=== PATIENT | female | born 1950 | race Caucasian/White ===

== ENCOUNTER → 2019-01-30 | Outpatient (CLI) | payer MEDICARE, OTHER ==
[2019-01-30 10:06] LABS: Basophils # (A) 0.1 k/uL (0-0.2); Basophils % (A) 1 %; Eosinophils # (A) 0.2 k/uL (0-0.7); Eosinophils % (A) 2 %; HCT 39.9 % (34.0-46.0); HGB 12.4 gm/dL (11.4-16.0); Lymphocytes # (A) 2.3 k/uL (1.0-4.8); Lymphocytes % (A) 24 %; MCH 28.4 pg (25.0-35.0); MCHC 31.2 g/dL (31.0-37.0); MCV 91.2 fL (80.0-100.0); Monocytes # (A) 0.4 k/uL (0-1.0); Monocytes % (A) 5 %; Neutrophils # (A) 6.4 k/uL (1.3-7.7); Neutrophils % (A) 67 %; Platelet Count 354 k/uL (150-450); RBC 4.37 m/uL (3.80-5.40); RDW 13.1 % (11.5-15.5); WBC 9.5 k/uL (3.8-10.6)
[2019-01-30 16:25] LABS: African American GFR (CKD) 58.9 (60.0-200.0); Anion Gap 12.1 mmol/L (4.00-12.00); BUN/Creat Ratio 28.18 Ratio (12.00-20.00); Carbon Dioxide 24.9 mmol/L (21.6-31.8); Non-African American GFR(CKD) 50.8 (60.0-200.0); Potassium 4.6 mmol/L (3.5-5.5)
== END ==
LOC: LABWHC1 09:18
PROVIDERS: ATTEND Internal Medicine Cardiovascular Disease
DX: G45.9 Transient cerebral ischemic attack, unspecified (principal)
CPT/HCPCS: 36415; 80048; 85025

== ENCOUNTER 2020-03-30 15:27 | Inpatient (IN) | payer MEDICARE, OTHER ==
[2020-03-30 15:46] LABS: Glucose,Whole Blood 99 mg/dL (75-99)
[2020-03-30] MEDS ORDERED: SODIUM CHLORIDE 0.9% 1,000 ML IV STA ×2 (15:46→16:45)
[2020-03-30 16:04] LABS: Basophils # (A) 0.1 k/uL (0-0.2); Basophils % (A) 1 %; Eosinophils # (A) 0.3 k/uL (0-0.7); Eosinophils % (A) 3 %; HCT 33.7 % (34.0-46.0); HGB 11.2 gm/dL (11.4-16.0); Lymphocytes % (A) 24 %; MCH 29.1 pg (25.0-35.0); MCHC 33.2 g/dL (31.0-37.0); MCV 87.6 fL (80.0-100.0); Mean Platelet Volume 7.6; Monocytes # (A) 0.6 k/uL (0-1.0); Monocytes % (A) 5 %; Neutrophils # (A) 8.2 k/uL (1.3-7.7); Neutrophils % (A) 67 %; Platelet Count 275 k/uL (150-450); RBC 3.84 m/uL (3.80-5.40); RDW 13.8 % (11.5-15.5); WBC 12.3 k/uL (3.8-10.6)
--- NOTE | 2020-03-30 16:19 | ED ---
Neuro HPI - General Chief Complaint: Neuro Symptoms/Deficit Stated Complaint: possible stroke Time Seen by Provider: 03/30/20 15:34 Source: patient, RN notes reviewed Mode of arrival: wheelchair Limitations: no limitations - History of Present Illness Is the patient presenting with stroke symptoms?: Yes Initial Comments: This is a 69-year-old female with history of prior stroke with left-sided hemiparesis who sometime this morning started developing some increased weakness with numbness to both hands but also per her brother brought her and she was noted have some left facial asymmetry and increased weakness left side which is new this happened sometime after she woke up this morning she does not recall exactly what time she woke up and after conversing with the doctor's office they were instructed to bring her in here for evaluation. The patient likely and she started having symptoms to 3 days ago after further discussion. She denies a headache fevers chills nausea vomiting sweats she does complain of numbness of both hands. No other complaints or modifying factors. - Related Data Allergies/Adverse Reactions: Allergies Allergy/AdvReac Type Severity Reaction Status Date / Time No Known Allergies Allergy Verified 03/30/20 15:33 Review of Systems ROS Statement: Those systems with pertinent positive or pertinent negative responses have been documented in the HPI. ROS Other: All systems not noted in ROS Statement are negative. General Exam - General Exam Comments Initial Comments: Physical well-developed well-nourished awake alert oriented 3 female she is tearful and anxious Limitations: no limitations General appearance: alert, anxious Head exam: Present: atraumatic, normocephalic Eye exam: Present: normal appearance, PERRL, EOMI. Absent: scleral icterus, conjunctival injection, periorbital swelling ENT exam: Present: other (Some evidence of mild left facial asymmetry with flattening of nasolabial fold) Neck exam: Present: normal inspection, full ROM, other (No stridor JVD or bruits). Absent: tenderness, meningismus, lymphadenopathy Respiratory exam: Present: normal lung sounds bilaterally. Absent: respiratory distress, wheezes, rales, rhonchi, stridor Cardiovascular Exam: Present: regular rate, normal rhythm, normal heart sounds. Absent: systolic murmur, diastolic murmur, rubs, gallop, clicks GI/Abdominal exam: Present: soft, normal bowel sounds. Absent: distended, tend erness, guarding, rebound, rigid Extremities exam: Present: normal inspection, normal capillary refill, other (Left upper lower extremity edna-paresis noted). 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 Absent: rash Stroke MDM - Lab Data Result diagrams: 03/30/20 15:52 03/30/20 15:52 Lab Results 03/30/20 03/30/20 03/30/20 Range/Units 15:44 15:52 15:52 WBC 12.3 H (3.8-10.6) k/uL RBC 3.84 (3.80-5.40) m/uL Hgb 11.2 L (11.4-16.0) gm/dL Hct 33.7 L (34.0-46.0) % MCV 87.6 (80.0-100.0) fL MCH 29.1 (25.0-35.0) pg MCHC 33.2 (31.0-37.0) g/dL RDW 13.8 (11.5-15.5) % Plt Count 275 (150-450) k/uL MPV 7.6 Neutrophils % 67 % Lymphocytes % 24 % Monocytes % 5 % Eosinophils % 3 % Basophils % 1 % Neutrophils # 8.2 H (1.3-7.7) k/uL Lymphocytes # 3.0 (1.0-4.8) k/uL Monocytes # 0.6 (0-1.0) k/uL Eosinophils # 0.3 (0-0.7) k/uL Basophils # 0.1 (0-0.2) k/uL PT 9.8 (9.0-12.0) sec INR 0.9 (<1.2) APTT 21.0 L (22.0-30.0) sec Sodium (137-145) mmol/L Potassium (3.5-5.1) mmol/L Chloride (98-107) mmol/L Carbon Dioxide (22-30) mmol/L Anion Gap mmol/L BUN (7-17) mg/dL Creatinine (0.52-1.04) mg/dL Est GFR (CKD-EPI)AfAm (>60 ml/min/1.73 sqM) Est GFR (CKD-EPI)NonAf (>60 ml/min/1.73 sqM) Glucose (74-99) mg/dL POC Glucose (mg/dL) 99 (75-99) mg/dL POC Glu [employer] Librarian ID Yovana Lyle Calcium (8.4-10.2) mg/dL Total Bilirubin (0.2-1.3) mg/dL AST (14-36) U/L ALT (4-34) U/L Alkaline Phosphatase (38-126) U/L Troponin I (0.000-0.034) ng/mL Total Protein (6.3-8.2) g/dL Albumin (3.5-5.0) g/dL 03/30/20 03/30/20 Range/Units 15:52 15:52 WBC (3.8-10.6) k/uL RBC (3.80-5.40) m/uL Hgb (11.4-16.0) gm/dL Hct (34.0-46.0) % MCV (80.0-100.0) fL MCH (25.0-35.0) pg MCHC (31.0-37.0) g/dL RDW (11.5-15.5) % Plt Count (150-450) k/uL MPV Neutrophils % % Lymphocytes % % Monocytes % % Eosinophils % % Basophils % % Neutrophils # (1.3-7.7) k/uL Lymphocytes # (1.0-4.8) k/uL Monocytes # (0-1.0) k/uL Eosinophils # (0-0.7) k/uL Basophils # (0-0.2) k/uL PT (9.0-12.0) sec INR (<1.2) APTT (22.0-30.0) sec Sodium 137 (137-145) mmol/L Potassium 6.2 H* (3.5-5.1) mmol/L Chloride 109 H (98-107) mmol/L Carbon Dioxide 18 L (22-30) mmol/L Anion Gap 10 mmol/L BUN 52 H (7-17) mg/dL Creatinine 2.17 H (0.52-1.04) mg/dL Est GFR (CKD-EPI)AfAm 26 (>60 ml/min/1.73 sqM) Est GFR (CKD-EPI)NonAf 22 (>60 ml/min/1.73 sqM) Glucose 102 H (74-99) mg/dL POC Glucose (mg/dL) (75-99) mg/dL POC Glu Electronic Resources Librarian ID Calcium 9.4 (8.4-10.2) mg/dL Total Bilirubin 0.4 (0.2-1.3) mg/dL AST 20 (14-36) U/L ALT 14 (4-34) U/L Alkaline Phosphatase 98 (38-126) U/L Troponin I <0.012 (0.000-0.034) ng/mL Total Protein 7.8 (6.3-8.2) g/dL Albumin 4.6 (3.5-5.0) g/dL - NIH Stroke Scale 1a. Level of Consciousness: (0) alert 1b. LOC Questions: (0) answers correctly 1c. LOC Commands: (0) performs tasks correctly 2. Best Gaze: (0) normal 3. Visual: (0) no visual loss 4. Facial Palsy: (0) normal symmetrical movement 5a. Motor Arm Left: (0) no drift 5b. Motor Arm Right: (0) no drift 6a. Motor Leg Left: (0) no drift 6b. Motor Leg Right: (0) no drift 7. Limb Ataxia: (0) absent 8. Sensory: (0) normal 9. Best Language: (0) no aphasia 10. Dysarthria: (0) normal 11. Extinction/Inattention: (0) no abnormality - Medical Decision Making The patient has had no further change. She has no prior history of kidney failu re that she is aware of. I did discuss case with Dr. Montes as well as with Dr. Medellin. Patient's been giving aggressive treatment to lower the potassium. Patient will be admitted with consultation by neurology as well as from nephrology. The symptoms likely started several days ago per history. No acute intervention is indicated at this time. Past Medical History Past Medical History: CVA/TIA Past Surgical History: Coronary Bypass/CABG Additional Past Surgical History / Comment(s): back surgery Smoking Status: Current every day smoker Past Alcohol Use History: None Reported Past Drug Use History: None Reported Course Vital Signs 03/30/20 03/30/20 03/30/20 15:28 16:32 17:00 Temperature 98.3 F Pulse Rate 61 55 L 58 L Respiratory 18 18 18 Rate Blood Pressure 160/61 121/51 136/58 O2 Sat by Pulse 97 96 96 Oximetry - Reevaluation(s) Reevaluation #1: 03/30/20 17:57 Evaluation the patient revealed no change in her status. Patient still unsure when the symptoms started. Critical Care Time Critical Care Time: Yes Total Critical Care Time: 39 Critical Care Time: Critical care time includes initial presentation with history physical labs x- rays review of imaging multiple reevaluation the patient. Review of old palma rting. Discussed with the admitting physician discussion with the consult. Admission orders documentation the above Disposition Clinical Impression: Acute renal failure, Hyperkalemia, CVA (cerebral vascular accident) Disposition: ADMITTED IP TO THIS [facility] Condition: Fair Referrals: Miguelito Russo MD [Primary Care Provider] - 1-2 days
[2020-03-30 16:21] LABS: Albumin 4.6 g/dL (3.5-5.0); Calcium 9.4 mg/dL (8.4-10.2); Total Bilirubin 0.4 mg/dL (0.2-1.3); Total Protein 7.8 g/dL (6.3-8.2)
[2020-03-30 16:27] LABS: INR 0.9 (<1.2); Prothrombin Time 9.8 sec (9.0-12.0)
--- NOTE | 2020-03-30 16:34 | CT ---
EXAMINATION TYPE: CT brain wo con DATE OF EXAM: 03/30/2020 COMPARISON: None HISTORY: Weakness and neuro deficit with history of prior CVA. CT DLP: 1202.4 mGycm Automated exposure control for dose reduction was used. Helical imaging through the brain. FINDINGS: There are cerebral vascular calcifications present. Extensive skin calcifications are present within the scalp. Periventricular white matter shows patchy low attenuation. There is encephalomalacia in th e distribution of the right middle cerebral artery. Some mild ex vacuo phenomenon present of the righ t lateral ventricle. Periventricular white matter shows patchy low attenuation. No hemorrhage or hydr ocephalus. Calvarium is intact. There is cerumen in the external auditory canals. Orbits show symmetr ic appearance. Some soft tissue density is questioned at the level of the middle ears within the atti c on the right. Mild inflammatory change present in the sphenoid sinus on the left. IMPRESSION: EVIDENCE OF CHRONIC SMALL VESSEL ISCHEMIA, CEREBROVASCULAR ACCIDENT IS LIKELY REMOTE. AGE-RELATED ATR OPHY. CERUMEN WITHIN THE EXTERNAL AUDITORY CANALS, DIFFICULT TO EXCLUDE CHOLESTEATOMA ON THE RIGHT. C ONSIDER DEDICATED NONEMERGENT TEMPORAL BONE IMAGING.
[2020-03-30 16:38] LABS: Potassium 6.2 mmol/L (3.5-5.1)
[2020-03-30] MEDS ORDERED: ALBUTEROL NEBULIZED (CONC) 20 MG, SODIUM CHLORIDE 0.9% NEBULIZ 3 ML INHALATION ONE ×4 (16:45→18:30)
--- NOTE | 2020-03-30 16:48 | XR ---
EXAMINATION TYPE: XR chest 2V DATE OF EXAM: 03/30/2020 COMPARISON: NONE HISTORY: Altered mental status TECHNIQUE: 2 views FINDINGS: There is no heart failure nor confluent pneumonic infiltrate. Costophrenic angles are clear . There are sternal wires. Thoracic aorta is atheromatous. IMPRESSION: No active cardiopulmonary disease. Normal heart. Atheromatous aorta.
[2020-03-30] MEDS ORDERED: SODIUM POLYSTYRENE SULFONATE 15 GM/60 ML BOTTLE PO STA (16:56)
[2020-03-30] MEDS ORDERED: HYDROmorphone 1 MG/ML 1 ML SYRINGE IVP STA (16:56)
[2020-03-30] MEDS ORDERED: DEXTROSE 50% SYRINGE 50 ML IVP STA (17:09)
[2020-03-30] MEDS ORDERED: SODIUM BICARB 8.4% 50 ML SYR (1 MEQ/ML) IV STA (17:10)
[2020-03-30] MEDS ORDERED: INSULIN REGULAR 100 UNIT/ML VIAL IV ONE (17:10)
[2020-03-30] MEDS ORDERED: CALCIUM CHLORIDE 100 MG/ML 10 ML SYRINGE IVP STA (17:10)
[2020-03-30] MEDS ORDERED: FLUTICASONE 50MCG/SPRAY NASAL 16GM EA NOSTRIL PRN (18:38)
[2020-03-30] MEDS ORDERED: CYCLOBENZAPRINE 10 MG TAB PO PRN (18:38)
[2020-03-30] MEDS ORDERED: METOCLOPRAMIDE 10 MG TAB PO PRN (18:38)
[2020-03-30] MEDS ORDERED: [UNRECOGNIZED DRUG - OTHER] INHALATION PRN (18:38)
[2020-03-30] MEDS ORDERED: NITROGLYCERIN SL TABS 0.4 MG TAB SUBLINGUAL PRN (18:38)
[2020-03-30] MEDS ORDERED: PROCHLORPERAZINE 10 MG TAB PO PRN (18:38)
[2020-03-30] MEDS: SODIUM CHLORIDE 0.9% 1,000 ML IV SCH ×2 (18:50→22:11)
[2020-03-30 20:20] LABS: Glucose,Whole Blood 82 mg/dL (75-99)
[2020-03-30] MEDS: INSULIN ASPART (NovoLOG) 100 UNIT/ML VIAL SQ SCH (21:35)
[2020-03-30] MEDS: MONTELUKAST 10 MG TAB PO SCH (22:09)
[2020-03-30] MEDS: ALPRAZolam 1 MG TAB PO PRN (22:09)
[2020-03-30] MEDS: PANTOPRAZOLE 40 MG TABLET PO SCH (22:09)
[2020-03-30] MEDS: carvediloL 12.5 MG TAB PO SCH (22:09)
[2020-03-30] MEDS: HYDROcodone/APAP 10-325MG 1 EACH TAB PO PRN (22:10)
[2020-03-30] MEDS: DOCUSATE 100 MG CAP PO SCH (22:10)
[2020-03-30] MEDS: INSULIN DETEMIR (LEVEMIR) 100 UNIT/ML SYR SQ SCH (22:11)
[2020-03-31 06:54] LABS: Glucose,Whole Blood 53 mg/dL (75-99)
[2020-03-31] MEDS: INSULIN ASPART (NovoLOG) 100 UNIT/ML VIAL SQ SCH ×4 (06:56→20:44)
[2020-03-31] MEDS: carvediloL 12.5 MG TAB PO SCH ×2 (06:58→17:06)
[2020-03-31 07:09] LABS: Glucose,Whole Blood 56 mg/dL (75-99)
[2020-03-31 07:27] LABS: Glucose,Whole Blood 57 mg/dL (75-99)
[2020-03-31 07:44] LABS: Glucose,Whole Blood 57 mg/dL (75-99)
[2020-03-31] MEDS ORDERED: DEXTROSE 50% SYRINGE 50 ML IVP ONE (07:52)
[2020-03-31 08:06] LABS: Glucose,Whole Blood 186 mg/dL (75-99)
[2020-03-31 08:23] LABS: Calcium 9.3 mg/dL (8.4-10.2); Potassium 4.8 mmol/L (3.5-5.1)
[2020-03-31] MEDS ORDERED: CHLORTHALIDONE 25 MG TAB PO SCH (09:00)
[2020-03-31] MEDS ORDERED: hydrALAZINE HCL 50 MG TAB PO SCH (09:00)
[2020-03-31] MEDS ORDERED: lisinopriL 20 MG TAB PO SCH (09:00)
[2020-03-31] MEDS ORDERED: ASPIRIN 325 MG TAB PO SCH (09:00)
[2020-03-31] MEDS: EZETIMIBE 10 MG TAB PO SCH (09:29)
[2020-03-31] MEDS: CLOPIDOGREL 75 MG TAB PO SCH (09:30)
[2020-03-31] MEDS: DOCUSATE 100 MG CAP PO SCH ×2 (09:30→20:48)
[2020-03-31] MEDS: PANTOPRAZOLE 40 MG TABLET PO SCH ×2 (09:30→20:48)
--- NOTE | 2020-03-31 09:31 | P.NPCON ---
History of Present Illness - Reason for Consult acute renal failure - History of Present Illness Reason for consultation: Acute kidney injury next History of present illness: A patient is a 69-year-old female seen in consultation for acute kidney injury. Patient's creatinine was 2.17 on admission and is down to 1.43 today. Creatinine in January 2019 was 1.1. Patient presented to the hospital with increased weakness and numbness in her hands. She was also noted to have facial asymmetry by the family members. Patient is not a very reliable historian at this time. She underwent brain CT in the ER which revealed chronic small vessel ischemia. Patient's potassium level was also elevated at 6.2 on admission and was medically treated with IV insulin and D50 as well as sodium bicarb. She also received a dose of Kayexalate. She was on lisinopril at home which has been discontinued. Hemodynamically stable. Has a Goodman catheter. 2 L urine output since admission. She is maintained on normal saline at 130 mL an hour. Vital signs are stable. General: The patient appeared well nourished and normally developed. HEENT: Head exam is unremarkable. Neck is without jugular venous distension. LUNGS: Breath sounds decreased. HEART: Rate and Rhythm are regular. ABDOMEN: Soft, nontender. EXTREMITITES: No edema. Past Medical History Past Medical History: CVA/TIA, Myocardial Infarction ([place]) Additional Past Medical History / Comment(s): CVA 2018 Last Myocardial Infarction Date:: 2014 History of Any Multi-Drug Resistant Organisms: None Reported Past Surgical History: Coronary Bypass/CABG, Heart Catheterization With Stent Additional Past Surgical History / Comment(s): back surgery, 4 vesssel bypass 2003 Past Anesthesia/Blood Transfusion Reactions: No Reported Reaction Date of Last Stent Placement:: 2014 Smoking Status: Current every day smoker Past Alcohol Use History: None Reported Past Drug Use History: None Reported Medications and Allergies Home Medications Medication Instructions Recorded Confirmed Type ALPRAZolam [Xanax] 1 mg PO QID PRN 03/30/20 03/30/20 History Carvedilol [Coreg] 25 mg PO BID 03/30/20 03/30/20 History Chlorthalidone 25 mg PO DAILY 03/30/20 03/30/20 History Clopidogrel Bisulfate [Plavix] 75 mg PO DAILY 03/30/20 03/30/20 History Cyclobenzaprine [Flexeril] 10 mg PO BID PRN 03/30/20 03/30/20 History Docusate [Colace] 100 mg PO BID 03/30/20 03/30/20 History Ezetimibe [Zetia] 10 mg PO DAILY 03/30/20 03/30/20 History Fluticasone Nasal [place] [Flonase 1 spr EA NOSTRIL DAILY PRN 03/30/20 03/30/20 History Nasal [place]] HYDROcodone/APAP 10-325MG [Hustler 1 tab PO QID PRN 03/30/20 03/30/20 History 10-325] Insulin Glargine,Hum.rec.anlog 50 unit SQ BID 03/30/20 03/30/20 History [Lantus Solostar] Isosorbide Mononitrate ER [Imdur] 60 mg PO DAILY 03/30/20 03/30/20 History Mesal/Menth/Camph/[place] Fir 1 puff INHALATION RT-DAILY PRN 03/30/20 03/30/20 History [Eitan Vapointristian] Metoclopramide [Reglan] 10 mg PO ACHS PRN 03/30/20 03/30/20 History Montelukast [Singulair] 10 mg PO HS 03/30/20 03/30/20 History Nitroglycerin Sl Tabs [Nitrostat] 0.4 mg SL Q5M PRN 03/30/20 03/30/20 History Omeprazole 20 mg PO BID 03/30/20 03/30/20 History Prochlorperazine [Compazine] 10 mg PO Q6H PRN 03/30/20 03/30/20 History amLODIPine [Norvasc] 10 mg PO DAILY 03/30/20 03/30/20 History hydrALAZINE HCL [Apresoline] 100 mg PO DAILY 03/30/20 03/30/20 History lisinopriL 40 mg PO DAILY 03/30/20 03/30/20 History Allergies Allergy/AdvReac Type Severity Reaction Status Date / Time No Known Allergies Allergy Verified 03/30/20 18:25 Physical Exam Vitals: Vital Signs Temp Pulse Pulse Resp BP BP Pulse Ox 03/31/20 04:00 51 L 18 101/59 92 L 03/31/20 01:38 62 18 03/31/20 00:00 62 18 158/70 95 03/30/20 20:30 98.1 F 57 L 18 152/68 95 03/30/20 19:00 56 L 139/59 99 03/30/20 18:53 56 L 03/30/20 18:33 54 L 03/30/20 18:00 54 L 03/30/20 17:00 58 L 18 136/58 96 03/30/20 16:32 55 L 18 121/51 96 03/30/20 15:28 98.3 F 61 18 160/61 97 Intake and Output 03/30/20 03/31/20 03/31/20 22:59 06:59 14:59 Intake Total 910 480 Output Total 600 1420 Balance -600 -510 480 Intake: Intake, IV Titration 910 Amount Sodium Chloride 0.9% 1, 910 000 ml @ 130 mls/hr IV . Q7H42M [facility] Rx#:[id number] Oral 480 Output: Urine 600 1420 Uretheral (Goodman) 600 Other: Voiding Method Indwelling Catheter Weight 82.1 kg 85.4 kg Results - Lab Results Most recent lab results Calcium 9.3 mg/dL (8.4-10.2) 03/31/20 07:33 03/30/20 15:52 03/31/20 07:33 Assessment and Plan Plan: Assessment: 1. Acute kidney injury mostly prerenal secondary to hypovolemia improving with IV hydration. Creatinine was 2.17 on admission and is 1.4 today. Creatinine in January 2019 was 1.1. 2. Hyperkalemia secondary to acute kidney injury, metabolic acidosis and lisinopril. Resolved with medical management. 3. Metabolic acidosis secondary to acute kidney injury. Improved. 4. Benign hypertension. Stable. Plan: Decreased rate of normal saline to 75 mL an hour. Hold chlorthalidone as well as lisinopril. Encouraged oral intake. Check urinalysis and renal ultrasound. Avoid nephrotoxins. Hold amlodipine for systolic blood pressure less than 130. Thank you for the consultation. I will continue to follow the patient with you during her hospital stay.
[2020-03-31] MEDS: SODIUM CHLORIDE 0.9% 1,000 ML IV SCH ×2 (09:32→20:49)
[2020-03-31] MEDS: HYDROcodone/APAP 10-325MG 1 EACH TAB PO PRN ×2 (09:35→17:58)
[2020-03-31] MEDS: amLODIPine 10 MG TAB PO SCH (09:37)
[2020-03-31] MEDS: ISOSORBIDE MONONITRATE ER 60 MG TAB.ER.24H PO SCH (09:37)
--- NOTE | 2020-03-31 10:21 | US ---
EXAMINATION TYPE: US kidneys/renal and bladder DATE OF EXAM: 03/31/2020 COMPARISON: NONE CLINICAL HISTORY: josefina. EXAM MEASUREMENTS: Right Kidney: 10.3 x 5.2 x 5.6 cm Left Kidney: 11.2 x 5.6 x 4.8 cm Right Kidney: No hydronephrosis or masses seen Left Kidney: No hydronephrosis or masses seen Bladder: Not distended, patient has miller catheter There is no evidence for hydronephrosis at this point in time. No nephrolithiasis is seen. No [place] s are identified. IMPRESSION: No acute process.
[2020-03-31 12:09] LABS: Glucose,Whole Blood 227 mg/dL (75-99)
--- NOTE | 2020-03-31 12:11 | P.CNNES ---
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 It seems the onset of the symptoms happened 3 days prior to presenting the hospital per ED noted but she notified me it was the worse yesterday. It was documented in the ED note that she had weakness of bilteral hand with numbness but she notified me it was worsening weakness of the left side. She had headache over frontal region that resolved. She feels she is back to baseline. She denies visual diturbance, difficulty getting her words out or any worsening weakness or numbness. She said she had baseline weakness over the left side with left facial droop and upper and lower extremity weakness. She has some mild dysathria at baseline. She takes Plavix 75mg daily and Lipitor 80mg daily as well as Zeitia. She does not take ASA and said she was not told to take Asprin. She does not know exactly her stroke was but had work-up at outside hospital in the past. She had right carotid stenting by her lease purchase truck driver in the past and was told she has left carotid stenosis and she said she need to follow-up with them. She resides with her brother. She uses a cane and walker. Workup in the hospital consisted of: Initial vital signs: As documented as blood pressure of 160/61, heart rate of 61, respiratory of 18, temperature of 98.3 Fahrenheit oral and pulse ox of 97% at room air. CT of the head is reported as evidence of chronic small vessel ischemia, cerebral vascular accident is likely remote. Age-related atrophy. Cerumen within the external auditory canal, difficult to exclude Cholesteatoma, on the right. Consider dedicated nonemergent a temporal bone imaging. In the body of the report it is mentioned that there is encephalomalacia in the distribution of the right MCA. Some mild ex vacuo phenomenon present at the right lateral ventricle. EKG is reported as sinus bradycardia. ST and T-wave abnormality, consider lateral ischemia. Abnormal EKG. Initial potassium is 6.2. Repeated potassium is 4.8. The BUN is 52 and the creatinine is 2.17, repeated is 1.43. Lipid panel: Triglyceride of 210, cholesterol of 165, LDLs 89, HDL 34. Review of Systems Review of system: The 12 point system was reviewed and apparent positive and negative per HPI. Past Medical History Past Medical History: CVA/TIA, Myocardial Infarction (OR) Additional Past Medical History / Comment(s): CVA 2018 Last Myocardial Infarction Date:: 2014 History of Any Multi-Drug Resistant Organisms: None Reported Past Surgical History: Coronary Bypass/CABG, Heart Catheterization With Stent Additional Past Surgical History / Comment(s): back surgery, 4 vesssel bypass 2003 Past Anesthesia/Blood Transfusion Reactions: No Reported Reaction Date of Last Stent Placement:: 2014 Smoking Status: Current every day smoker Past Alcohol Use History: None Reported Past Drug Use History: None Reported Medications and Allergies Home Medications Medication Instructions Recorded Confirmed Type ALPRAZolam [Xanax] 1 mg PO QID PRN 03/30/20 03/30/20 History Carvedilol [Coreg] 25 mg PO BID 03/30/20 03/30/20 History Chlorthalidone 25 mg PO DAILY 03/30/20 03/30/20 History Clopidogrel Bisulfate [Plavix] 75 mg PO DAILY 03/30/20 03/30/20 History Cyclobenzaprine [Flexeril] 10 mg PO BID PRN 03/30/20 03/30/20 History Docusate [Colace] 100 mg PO BID 03/30/20 03/30/20 History Ezetimibe [Zetia] 10 mg PO DAILY 03/30/20 03/30/20 History Fluticasone Nasal [place] [Flonase 1 spr EA NOSTRIL DAILY PRN 03/30/20 03/30/20 History Nasal [place]] HYDROcodone/APAP 10-325MG [[place] 1 tab PO QID PRN 03/30/20 03/30/20 History 10-325] Insulin Glargine,Hum.rec.anlog 50 unit SQ BID 03/30/20 03/30/20 History [Lantus Solostar] Isosorbide Mononitrate ER [Imdur] 60 mg PO DAILY 03/30/20 03/30/20 History Mesal/Menth/Camph/[place] 1 puff INHALATION RT-DAILY PRN 03/30/20 03/30/20 History [Eitan Vapoinhaler] Metoclopramide [Reglan] 10 mg PO ACHS PRN 03/30/20 03/30/20 History Montelukast [Singulair] 10 mg PO HS 03/30/20 03/30/20 History Nitroglycerin Sl Tabs [Nitrostat] 0.4 mg SL Q5M PRN 03/30/20 03/30/20 History Omeprazole 20 mg PO BID 03/30/20 03/30/20 History Prochlorperazine [Compazine] 10 mg PO Q6H PRN 03/30/20 03/30/20 History amLODIPine [Norvasc] 10 mg PO DAILY 03/30/20 03/30/20 History hydrALAZINE HCL [Apresoline] 100 mg PO DAILY 03/30/20 03/30/20 History lisinopriL 40 mg PO DAILY 03/30/20 03/30/20 History Allergies Allergy/AdvReac Type Severity Reaction Status Date / Time No Known Allergies Allergy Verified 03/30/20 18:25 Physical Examination - Vital Signs Vital Signs: Vital Signs Temp Pulse Pulse Resp BP BP Pulse Ox 03/31/20 08:00 97.5 F L 54 L 18 157/69 97 03/31/20 04:00 51 L 18 101/59 92 L 03/31/20 01:38 62 18 03/31/20 00:00 62 18 158/70 95 03/30/20 20:30 98.1 F 57 L 18 152/68 95 03/30/20 19:00 56 L 139/59 99 03/30/20 18:53 56 L 03/30/20 18:33 54 L 03/30/20 18:00 54 L 03/30/20 17:00 58 L 18 136/58 96 03/30/20 16:32 55 L 18 121/51 96 03/30/20 15:28 98.3 F 61 18 160/61 97 Intake and Output 03/30/20 03/31/20 03/31/20 22:59 06:59 14:59 Intake Total 910 480 Output Total 600 1420 Balance -600 -510 480 Intake: Intake, IV Titration 910 Amount Sodium Chloride 0.9% 1, 910 000 ml @ 130 mls/hr IV . [id number] [facility] Rx#:[id number] Oral 480 Output: Urine 600 1420 Uretheral (Goodman) 600 Other: Voiding Method Indwelling Catheter Weight 82.1 kg 85.4 kg GENERAL: The patient is lying in bed and is not in acute distress. CHEST: The heart rate is regular rate rhythm. No murmurs to auscultation. LUNG: Clear to auscultation bilaterally no wheezing noted throughout. Not labored breathing. ABDOMEN/GI: Bowel sounds present in all 4 quadrants. No tenderness to palpation throughout. NEUROLOGICAL: Higher mental function: The patient is awake, alert, oriented to self, place and time. Patient is following commands. No aphasia and no neglect. Cranial nerves: The pupils are round, equal and reactive to light and accommodation. Visual jj are full to confrontation throughout. Extraocular movement is intact no nystagmus is noted. Facial sensation is normal to touch throughout. The facial strength is left lower facial droop (old). Hearing is mild decreased to hand rub bilaterally. Tongue is midline and moved si de-to-side without any difficulty. Has mild dysarthria (old). Shoulder shrug is normal bilaterally. 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 Left proximal is 4+ otherwise 5/5. Normal tone and bulk. Cerebellum: Normal finger to nose bilaterally. Sensation: Sensation is normal to touch throughout. Reflexes (right/left): Left brachioradialis and patellar are 3+ otherwise 2+ throughout. Plantars is upgoing over the left and downgoing over the right. Results Correlation study: PT of 9.8, INR is 0.9 and the PTT is 21.0 - Laboratory Findings CBC and BMP: 03/30/20 15:52 03/31/20 07:33 Abnormal Lab Findings: Abnormal Labs 03/30/20 03/30/20 03/30/20 15:52 15:52 15:52 WBC 12.3 H Hgb 11.2 L Hct 33.7 L Neutrophils # 8.2 H APTT 21.0 L Potassium 6.2 H* Chloride 109 H Carbon Dioxide 18 L BUN 52 H Creatinine 2.17 H Glucose 102 H POC Glucose (mg/dL) Triglycerides HDL Cholesterol 03/31/20 03/31/20 03/31/20 06:53 07:08 07:26 WBC Hgb Hct Neutrophils # APTT Potassium Chloride Carbon Dioxide BUN Creatinine Glucose POC Glucose (mg/dL) 53 L 56 L 57 L Triglycerides HDL Cholesterol 03/31/20 03/31/20 03/31/20 07:33 07:43 08:04 WBC Hgb Hct Neutrophils # APTT Potassium Chloride 111 H Carbon Dioxide BUN 41 H Creatinine 1.43 H Glucose 58 L POC Glucose (mg/dL) 57 L 186 H Triglycerides 210 H HDL Cholesterol 34 L Assessment and Plan Assessment: This is a 69-year-old woman with history of prior stroke with residual left- sided weakness that presented emergency department on 03/30/2020 for worsening weakness of the left side for the past 3 days as well numbness and weakness of bilateral hand. Worsening weakness over the left side as well as weakness and numbness of bilateral hands seems likely due to Transient Ischemic Attack (she stated she is back to baseline) History of right MCA stroke and is seems more anterior with residual weakness over the left side History of right ICA stenosis s/p stenosis. History of left carotid stenosis per patient Acute kidney injury--improving Hyperkalemia---resolved Dyslipidemia Plan: CT of the head is reported as evidence of chronic small vessel ischemia, cerebral vascular accident is likely remote. Age-related atrophy. Cerumen within the external auditory canal, difficult to exclude Cholesteatoma, on the right. Consider dedicated nonemergent a temporal bone imaging. In the body of the report it is mentioned that there is encephalomalacia in the distribution of the right MCA. Some mild ex vacuo phenomenon present at the right lateral ventricle. Lipid panel: Triglyceride of 210, cholesterol of 165, LDLs 89, HDL 34. LDL goal is <70 in stroke. Patient was restarted on the Plavix 75 mg daily home medication and was started on aspirin 325 daily by primary team. I lowered the aspirin from 325-81 and acting the patient will benefit from dual antiplatelet because the carotid stenosis. Start the patient on Lipitor 80 mg daily (home dose). At home she is on Zetia 10 mg daily and was continued by the primary team. I ordered TSH level. Continue cardiac monitoring. Continue every 4 neuro checks. Order echo cardiogram and carotid duplex I ordered MRI Brain to rule out any acute ischemic stroke Physical therapy, occupational therapy and speech therapy are consulted. Regarding the patient carotid stenosis or and history of left carotid stenosis according to her I notified her that would like to consult the vascular surgery but she took notified me that to hold off for now and that she wants to follow- up with her lease purchase truck driver as an outpatient. We'll get a carotid duplex and then all have another discussion with the patient whether she changes her mind or not. Please avoid any hypotensive episodes. Defer the rest of the medical metastatic the primary team. The plan was discussed with the patient's nurse. Thank you for the consultation. Brenton Lai M.D. Neuro-hospitalist Time with Patient: Greater than 30
[2020-03-31] MEDS ORDERED: ATORVASTATIN 80 MG TAB PO SCH (12:15)
[2020-03-31] MEDS: INSULIN DETEMIR (LEVEMIR) 100 UNIT/ML SYR SQ SCH (12:17)
--- NOTE | 2020-03-31 13:54 | US ---
EXAMINATION TYPE: US carotid duplex BILAT DATE OF EXAM: 03/31/2020 COMPARISON: NONE CLINICAL HISTORY: stroke. EXAM MEASUREMENTS: RIGHT: Peak Systolic Velocity (PSV) cm/sec ----- Right CCA: 64.0 ----- Right ICA: 137.4 ----- Right ECA: 230.4 ICA/CCA ratio: 2.1 RIGHT: End Diastole cm/sec ----- Right CCA: 15.0 ----- Right ICA: 24.0 ----- Right ECA: 0.0 LEFT: Peak Systolic Velocity (PSV) cm/sec ----- Left CCA: 163.5 ----- Left ICA: 157.3 ----- Left ECA: 190.8 ICA/CCA ratio: 1.0 LEFT: End Diastole cm/sec ----- Left CCA: 17.7 ----- Left ICA: 19.7 ----- Left ECA: 17.1 VERTEBRALS (direction of flow): Right Vertebral: Antegrade Left Vertebral: Antegrade Rhythm: Normal Patient states she had surgery on the right carotid. Technically difficult study due to patients SOB and technologist ability to reach patients neck. Severe plaque with no significant velocity increases. IMPRESSION: 1. Extensive atherosclerotic plaque. Findings suggest a 50-69% stenosis involving the proximal right ICA. Criteria for Assigning % of Stenosis / Diameter reduction (Estimation based on the indirect measurements of the internal carotid artery velocities (ICA PSV). 1. Normal (no stenosis)=ICA PSV < 125 cm/s: ratio < 2.0: ICA EDV<40 cm/s. 2. Less than 50% stenosis=ICA PSV < 125 cm/s: ratio < 2.0: ICA EDV<40 cm/s. 3. 50 to 69% stenosis=ICA PSV of 125 to 230 cm/s: ration 2.0 ? 4.0: ICA EDV 40-100 cm/s. 4. Greater than 70% stenosis to near occlusion= ICA PSV > 230 cm/s: ratio > 4.0: ICA EDV > 100 cm/s. 5. Near occlusion= ICA PSV velocities may be low or undetectable: variable ratio and ICA EDV. 6. Total occlusion=unable to detect flow.
[2020-03-31 14:22] VITALS: RESP 16
[2020-03-31 16:58] LABS: Glucose,Whole Blood 76 mg/dL (75-99)
--- NOTE | 2020-03-31 17:25 | MR ---
EXAMINATION TYPE: MR brain wo con DATE OF EXAM: 03/31/2020 COMPARISON: CT brain from yesterday. HISTORY: stroke: worsening left sided weakness TECHNIQUE: Multiplanar, multisequence imaging of the brain and brainstem is performed without IV cont rast. FINDINGS: Diffusion weighted images demonstrate no evidence of a recent infarct or other diffusion abnormality. There is no worrisome no extra-axial fluid collection. Mild ventricular and sulcal prominence. Foci o f T2 hyperintensity scattered throughout the white matter bilaterally greatest the periventricular le rehana evidence of old infarct in the right frontoparietal region middle cerebral artery distribution re demonstrated Midline structures redemonstrate normal morphology. The craniocervical junction appears within mabel l limits. Normal vascular flow voids are present. The visualized sinuses are clear and the globes are intact. IMPRESSION: Mild diffuse cerebral atrophy with moderate chronic small vessel ischemic change and sign ificant old right-sided middle cerebral artery distribution infarct are all identified. No MRI eviden ce for a recent infarct.
[2020-03-31] MEDS: ALPRAZolam 1 MG TAB PO PRN (17:58)
[2020-03-31 18:04] LABS: Appearance,Urine Clear (Clear); Bilirubin,Urine Negative (Negative); Blood,Urine Trace (Negative); Color,Urine Light Yellow; Glucose,Urine (UA) Trace (Negative); Ketones,Urine Negative (Negative); Leukocyte Esterase,Urine Moderate (Negative); Mucus,Urine Rare /hpf; Nitrite,Urine Negative (Negative); Protein,Urine Trace (Negative); RBC,Urine 10 /hpf (0-5); Specific Gravity,Urine 1.014 (1.001-1.035); Urobilinogen,Urine <2.0 mg/dL (<2.0); WBC,Urine 10 /hpf (0-5)
--- NOTE | 2020-03-31 18:51 | HP ---
HISTORY AND PHYSICAL CHIEF COMPLAINT: Possible CVA. HISTORY OF PRESENT ILLNESS: This is another admission for this unhealthy 69-year-old white female who has had a longstanding history of atherosclerotic cardiovascular disease and has had a prior right CVA which left her with mild left hemiparesis. She has been fairly compliant with keeping appointments and taking her medications; however, she continues to smoke. She lives with a brother who called, stating that she thought that she had had another right-sided CVA because of the left side of her face was drooping and she was complaining of increased weakness in the left arm and leg. This had been going on for several days, but she did not want to go to the emergency room because of fear of the coronavirus. REVIEW OF SYSTEMS: She has had no change in vision or hearing and she has had no headaches, chest pain, cough, hemoptysis, abdominal pain, vomiting, diarrhea, incontinence of stool or urine, fever or chills, etc. 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 MEDICATIONS: Her medications include: 1. Singulair 10 mg once a day. 2. Vicodin 10 q.6 p.r.n. 3. Xanax 1 mg t.i.d. p.r.n. 4. Reglan 10 mg q.i.d. 5. NovoLog sliding scale. 6. Hydralazine 100 mg once a day. 7. Amlodipine 10 mg once a day. 8. Lisinopril 40 mg once a day. 9. Zetia 10 mg once a day. 10.Prilosec 20 mg once a day. 11.Lipitor 80 mg at bedtime. 12.Lantus 55 units twice a day. 13.Chlorthalidone 25 once a day. 14.Isosorbide mononitrate 60 mg once a day. 15.Carvedilol 25 twice a day. 16.Aspirin. 17.Pepcid. 18.Gabapentin 300 mg 2 capsules twice a day. 19.Clopidogrel 75 mg once a day. PHYSICAL EXAMINATION: Blood pressure 115/71 with a pulse of 60, respirations of 20, and she is afebrile. In general she appeared to be awake and alert but weak. Skin was dry and hydration was adequate. Head, ears, eyes, nose, mouth and throat were unremarkable. There was a slight left-sided facial weakness, but it could not be determined if this was any worse than her normal countenance. Neck veins were are not distended. Carotid bruits were not heard. Chest was clear to auscultation, but breath sounds were poor. Cardiac exam demonstrated sinus rhythm with no murmurs or extra sounds. Abdomen was soft, nontender. Extremities were normal. Neurologically she had very minimal weakness in the left arm and the left leg. There was not a significant evident facial droop. She is admitted to the hospital with diagnoses: 1. Possible new or extended right cerebral infarction. 2. Old right cerebral stroke. 3. Atherosclerotic cardiovascular disease. 4. Coronary artery disease. 5. Chronic obstructive pulmonary disease. 6. Type 2 diabetes. PLAN: 1. Bedrest. 2. IV fluids. 3. Frequent monitoring of her neurologic status and vital signs. 4. CT of the brain. 5. Carotid duplex imaging. 6. PT and OT. 7. Neurology consult. MMODL / IJN: [id number] /
--- NOTE | 2020-03-31 19:00 | PN ---
PROGRESS NOTE DATE OF SERVICE: 03/31/2020 CHIEF COMPLAINT: Possible right-sided CVA. HISTORY OF PRESENT ILLNESS: This lady is doing fairly well. She still feels that she has weakness in the right side of the face and left arm. PHYSICAL EXAMINATION: Her chest is clear. The cardiac exam is normal. The abdomen is soft and nontender. IMPRESSION: Right-sided cerebrovascular accident. PLAN: 1. Progress activity. 2. PT and OT. 3. Await carotid ultrasound. MMODL / IJN: [id number] /
[2020-03-31 20:42] LABS: Glucose,Whole Blood 114 mg/dL (75-99)
[2020-03-31] MEDS: MONTELUKAST 10 MG TAB PO SCH (20:48)
[2020-03-31] MEDS ORDERED: ATORVASTATIN 40 MG TAB PO SCH (21:00)
[2020-04-01 06:18] LABS: Glucose,Whole Blood 97 mg/dL (75-99)
[2020-04-01] MEDS: INSULIN ASPART (NovoLOG) 100 UNIT/ML VIAL SQ SCH ×3 (06:19→16:49)
[2020-04-01] MEDS: carvediloL 12.5 MG TAB PO SCH ×2 (06:22→16:51)
[2020-04-01] MEDS: HYDROcodone/APAP 10-325MG 1 EACH TAB PO PRN (06:25)
[2020-04-01 07:12] LABS: Glucose,Whole Blood 96 mg/dL (75-99)
--- NOTE | 2020-04-01 08:00 | ECHOF ---
Referral Reason:stroke MEASUREMENTS -------- HEIGHT: 157.5 cm WEIGHT: 85.3 kg BP: RVIDd: 2.3 cm (< 3.3) IVSd: 1.4 cm (0.6 - 1.1) LVIDd: 5.1 cm (3.9 - 5.3) LVPWd: 1.2 cm (0.6 - 1.1) IVSs: 2.1 cm LVIDs: 2.3 cm LVPWs: 2.0 cm LAESV Index (A-L): 31.72 ml/m Ao Diam: 3.1 cm (2.0 - 3.7) AV Cusp: 1.9 cm (1.5 - 2.6) LA Diam: 4.4 cm (2.7 - 3.8) MV EXCURSION: 16.659 mm (> 18.000) MV EF SLOPE: 92 mm/s (70 - 150) EPSS: 0.7 cm MV E Bryce: 1.18 m/s MV DecT: 283 ms MV A Bryce: 0.95 m/s MV E/A Ratio: 1.24 RAP: 15.00 mmHg RVSP: 25.06 mmHg FINDINGS -------- Sinus rhythm. This was a technically adequate study. The left ventricular size is normal. There is mild concentric left ventricular hypertrophy. Overa ll left ventricular systolic function is normal with, an EF between 55 - 60 %. Normal LAP Grade 1 Diastolic Dysfunction. The right ventricle is normal in size. LA is midly dilated 29-33ml/m2. The right atrial size is normal. The aortic valve is trileaflet, and appears structurally normal. No aortic stenosis or regurgitation. Mild mitral annular calcification present. There is trace mitral regurgitation. The tricuspid valve appears structurally normal. Mild tricuspid regurgitation present. Right vent ricular systolic pressure is normal at < 35 mmHg. Trace/mild (physiologic) pulmonic regurgitation. The aortic root size is normal. The inferior vena cava is mildly dilated. There is no pericardial effusion. CONCLUSIONS -------- 1. There is mild concentric left ventricular hypertrophy. 2. Overall left ventricular systolic function is normal with, an EF between 55 - 60 %. 3. Normal LAP Grade 1 Diastolic Dysfunction. 4. LA is midly dilated 29-33ml/m2. 5. The aortic valve is trileaflet, and appears structurally normal. No aortic stenosis or regurgitati on. 6. There is trace mitral regurgitation. 7. Mild tricuspid regurgitation present. 8. Trace/mild (physiologic) pulmonic regurgitation. 9. The inferior vena cava is mildly dilated. 10. There is no pericardial effusion. SLEEVE SETTER: Avis Marquis RDCS
[2020-04-01 08:20] LABS: Calcium 9.3 mg/dL (8.4-10.2); Magnesium 1.5 mg/dL (1.6-2.3); Potassium 5.1 mmol/L (3.5-5.1)
[2020-04-01] MEDS: DOCUSATE 100 MG CAP PO SCH (08:25)
[2020-04-01] MEDS: EZETIMIBE 10 MG TAB PO SCH (08:25)
[2020-04-01] MEDS: PANTOPRAZOLE 40 MG TABLET PO SCH (08:25)
[2020-04-01] MEDS: ISOSORBIDE MONONITRATE ER 60 MG TAB.ER.24H PO SCH (08:26)
[2020-04-01] MEDS: CLOPIDOGREL 75 MG TAB PO SCH (08:26)
[2020-04-01] MEDS: amLODIPine 10 MG TAB PO SCH (08:26)
[2020-04-01] MEDS: ALPRAZolam 1 MG TAB PO PRN (08:30)
[2020-04-01 08:33] VITALS: TEMP 98.6
[2020-04-01] MEDS ORDERED: ASPIRIN 81 MG PO SCH (09:00)
--- NOTE | 2020-04-01 11:28 | P.PN ---
Subjective Patient is seen in follow-up for acute kidney injury. Renal function continues to improve. Blood pressure stable. Good urine output. Has a Goodman catheter. Wants to go home. Vital signs are stable. General: The patient appeared well nourished and normally developed. HEENT: Head exam is unremarkable. Neck is without jugular venous distension. LUNGS: Breath sounds decreased. HEART: Rate and Rhythm are regular. ABDOMEN: soft, nontender. EXTREMITITES: No edema. Objective - Vital Signs Vital signs: Vital Signs Temp 98.6 F 04/01/20 08:00 Pulse 53 L 04/01/20 08:00 Resp 16 04/01/20 08:00 BP 128/60 04/01/20 08:00 Pulse Ox 96 04/01/20 08:00 Intake & Output 03/31/20 04/01/20 04/01/20 18:59 06:59 18:59 Intake Total 1318 200 Output Total 1860 Balance 1318 -1860 200 Weight 85.6 kg Intake: Intake, IV Titration 600 Amount Sodium Chloride 0.9% 1, 600 000 ml @ 75 mls/hr IV . [id number] [facility] Rx#:[id number] Oral 718 200 Output: Urine 1860 Other: Voiding Method Indwelling Catheter Indwelling Catheter # Voids 600 # Bowel Movements 1 - Labs CBC & Chem 7: 03/30/20 15:52 04/01/20 07:42 Labs: Abnormal Lab Results - Last 24 Hours (Table) 03/31/20 03/31/20 03/31/20 Range/Units 12:08 17:54 20:40 BUN (7-17) mg/dL Creatinine (0.52-1.04) mg/dL Glucose (74-99) mg/dL POC Glucose (mg/dL) 227 H 114 H (75-99) mg/dL Magnesium (1.6-2.3) mg/dL Urine Protein Trace H (Negative) Urine Glucose (UA) Trace H (Negative) Urine Blood Trace H (Negative) Ur Leukocyte Esterase Moderate H (Negative) Urine RBC 10 H (0-5) /hpf Urine WBC 10 H (0-5) /hpf Urine Mucus Rare H (None) /hpf 04/01/20 Range/Units 07:42 BUN 27 H (7-17) mg/dL Creatinine 1.06 H (0.52-1.04) mg/dL Glucose 108 H (74-99) mg/dL POC Glucose (mg/dL) (75-99) mg/dL Magnesium 1.5 L (1.6-2.3) mg/dL Urine Protein (Negative) Urine Glucose (UA) (Negative) Urine Blood (Negative) Ur Leukocyte Esterase (Negative) Urine RBC (0-5) /hpf Urine WBC (0-5) /hpf Urine Mucus (None) /hpf Assessment and Plan Plan: Assessment: 1. Acute kidney injury mostly prerenal secondary to hypovolemia improving with IV hydration. Creatinine was 2.17 on admission and is 1.06 today. Creatinine in January 2019 was 1.1. Trace proteinuria on UA. No hydronephrosis noted on kidney ultrasound. 2. Hyperkalemia secondary to acute kidney injury, metabolic acidosis and lisinopril. Resolved with medical management. 3. Metabolic acidosis secondary to acute kidney injury. Improved. 4. Benign hypertension. Stable. 5. Chronic diastolic CHF. 6. Hypomagnesemia from poor intake. Plan: Decreased normal saline to 50 mL an hour. Hold chlorthalidone as well as lisinopril. Encouraged oral intake. Avoid nephrotoxins. Hold amlodipine for systolic blood pressure less than 130. Cleared for CTA of the carotids as renal function is improved significantly. Maintain IV hydration and monitor renal function. Replace magnesium. 2 g IV today.
[2020-04-01 12:03] LABS: Glucose,Whole Blood 129 mg/dL (75-99)
--- NOTE | 2020-04-01 12:17 | P.PN ---
Subjective Progress Note Date: 04/01/20 The patient was seen at bedside and she stated that she feels a back to her baseline. She has not had any further episodes of weakness, numbness. Denies of any visual disturbance. Objective - Vital Signs Vital signs: Vital Signs Temp 98.6 F 04/01/20 08:00 Pulse 53 L 04/01/20 08:00 Resp 16 04/01/20 08:00 BP 128/60 04/01/20 08:00 Pulse Ox 96 04/01/20 08:00 Intake & Output 03/31/20 04/01/20 04/01/20 18:59 06:59 18:59 Intake Total 1318 200 Output Total 1860 Balance 1318 -1860 200 Weight 85.6 kg Intake: Intake, IV Titration 600 Amount Sodium Chloride 0.9% 1, 600 000 ml @ 75 mls/hr IV . [id number] Rx#:[id number] Oral 718 200 Output: Urine 1860 Other: Voiding Method Indwelling Catheter Indwelling Catheter Indwelling Catheter # Voids 600 # Bowel Movements 1 - Exam GENERAL: The patient is lying in bed and is not in acute distress. NEUROLOGICAL: Higher mental function: The patient is awake, alert, oriented to self, place and time. Patient is following commands. No aphasia and no neglect. Cranial nerves: The pupils are round, equal and reactive to light and accommodat ion. Visual jj are full to confrontation throughout. Extraocular movement is intact no nystagmus is noted. Facial sensation is normal to touch throughout. The facial strength is left lower facial droop (old). Hearing is mild decreased to hand rub bilaterally. Tongue is midline and moved [id number] without any difficulty. Has mild dysarthria (old). Shoulder shrug is normal bilaterally. 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 Left proximal is 4+ otherwise 5/5. Normal tone and bulk. Cerebellum: Normal finger to nose bilaterally. Sensation: Sensation is normal to touch throughout. Reflexes (right/left): Left brachioradialis and patellar are 3+ otherwise 2+ throughout. Plantars is upgoing over the left and downgoing over the right. - Labs CBC & Chem 7: 03/30/20 15:52 04/01/20 07:42 Labs: Abnormal Lab Results - Last 24 Hours (Table) 03/31/20 03/31/20 03/31/20 Range/Units 12:08 17:54 20:40 BUN (7-17) mg/dL Creatinine (0.52-1.04) mg/dL Glucose (74-99) mg/dL POC Glucose (mg/dL) 227 H 114 H (75-99) mg/dL Magnesium (1.6-2.3) mg/dL Urine Protein Trace H (Negative) Urine Glucose (UA) Trace H (Negative) Urine Blood Trace H (Negative) Ur Leukocyte Esterase Moderate H (Negative) Urine RBC 10 H (0-5) /hpf Urine WBC 10 H (0-5) /hpf Urine Mucus Rare H (None) /hpf 04/01/20 04/01/20 Range/Units 07:42 12:02 BUN 27 H (7-17) mg/dL Creatinine 1.06 H (0.52-1.04) mg/dL Glucose 108 H (74-99) mg/dL POC Glucose (mg/dL) 129 H (75-99) mg/dL Magnesium 1.5 L (1.6-2.3) mg/dL Urine Protein (Negative) Urine Glucose (UA) (Negative) Urine Blood (Negative) Ur Leukocyte Esterase (Negative) Urine RBC (0-5) /hpf Urine WBC (0-5) /hpf Urine Mucus (None) /hpf Assessment and Plan Assessment: This is a 69-year-old woman with history of prior stroke with residual left- sided weakness that presented emergency department on 03/30/2020 for worsening weakness of the left side for the past 3 days as well numbness and weakness of bilateral hand. Transient Ischemic Attack (Transient Worsening weakness over the left side as well as weakness and numbness of bilateral hands) History of right MCA stroke and is seems more anterior with residual weakness over the left side History of right ICA stenosis s/p stenosis. History of left carotid stenosis per patient Acute kidney injury--improving Hyperkalemia---resolved Dyslipidemia Plan: CT of the head is reported as evidence of chronic small vessel ischemia, cerebra l vascular accident is likely remote. Age-related atrophy. Cerumen within the external auditory canal, difficult to exclude Cholesteatoma, on the right. Consider dedicated nonemergent a temporal bone imaging. In the body of the report it is mentioned that there is encephalomalacia in the distribution of the right MCA. Some mild ex vacuo phenomenon present at the right lateral ventricle. Lipid panel: Triglyceride of 210, cholesterol of 165, LDLs 89, HDL 34. LDL goal is <70 in stroke. Continue dual antiplates (ASA 81mg and Plavix 75mg daily) because the carotid stenosis. Continue Lipitor 80 mg daily (home dose). At home she is on Zetia 10 mg daily and was continued by the primary team. TSH level: 1.1 (normal) Continue cardiac monitoring. Continue every 4 neuro checks. echo cardiogram: It is reported overall left ventricular systolic function is normal with ejection fraction 55-60%. Left atrium is mildly dilated. carotid duplex: Shows extensive atherosclerotic plaque. Finding suggest 50-69% stenosis involving the proximal right ICA. MRI Brain: It is reported as mild diffuse cerebral atrophy with moderate chronic small vessel ischemic change and significant old right sided middle cerebral artery distribution infarct are all identified. No MRI evidence for recent the infarct. I ordered CTA of the head and neck to better visualize the carotid stenosis but then patient refused to get and wants it as outpatient. She would like her box icer to assess degree of her carotid stenosis. Physical therapy, occupational therapy and speech therapy are consulted. Regarding the patient carotid stenosis or and history of left carotid stenosis according to her I notified her that would like to consult the vascular surgery but she took notified me that to hold off for now and that she wants to follow- up with her box icer as an outpatient. Please avoid any hypotensive episodes. Defer the rest of the medical metastatic the primary team. There is no further work-up needed from neurology perspective. Patient needs to follow-up with a neurologist within week as well as she needs to follow-up with her box icer regarding the carotid stenosis within a week. The plan was discussed with the patient's nurse. Brenton Lai M.D. Neuro-hospitalist Time with Patient: Less than 30
[2020-04-01] MEDS: MAGNESIUM SULFATE-D5W PMX 1 GM in DEXTROSE/WATER 1 100ML.BAG IVPB SCH ×2 (13:00→14:30)
[2020-04-01 16:48] LABS: Glucose,Whole Blood 138 mg/dL (75-99)
[2020-04-01] MEDS: SODIUM CHLORIDE 0.9% 1,000 ML IV SCH (16:48)
[2020-04-01 17:21] VITALS: BP 182/76; PULSE 72
--- NOTE | 2020-04-01 18:37 | DS ---
DISCHARGE SUMMARY DATE OF SERVICE: 04/01/2020 CHIEF COMPLAINT: Possible right-sided CVA with left hemiparesis. HISTORY OF PRESENT ILLNESS AND PHYSICAL EXAMINATION: Details of this lady's history and physical can be found in the initial workup. LABORATORY STUDIES: While she was in the hospital she had laboratory studies, details of which can be found in the laboratory section of her chart. COURSE IN THE HOSPITAL: After admission she was placed at bedrest, started on intravenous fluids and underwent a neurologic evaluation. There was no new evidence of any vascular disease or abnormality on any of her studies that would suggest that there had been an interval manager exchange her previous neurologic deficits from her old stroke. She was stable and it was felt that she could be discharged on 04/01/2020. She will go home on her usual activity, diet, medication, and an effort will be made to get her off of some of the medicines that may be oversedating her, such as Flexeril and Vicodin. She will be seen in the office in several days. FINAL DIAGNOSES: 1. Right-sided transient ischemic attack with minimal left hemiparesis. 2. Old right-sided cerebrovascular accident with hemiparesis. 3. Chronic obstructive pulmonary disease. 4. Hypertension. OPERATIONS: None. CONSULTATION: Neurology. She is improved. MMODL / IJN: [id number] /
== END 2020-04-01 17:37 | disposition home health service (06) | DRG 69 ==
LOC: EC 15:27 → 3SCARD 18:10
PROVIDERS: ADMIT Family Medicine; ATTEND Family Medicine
DX: G45.9 Transient cerebral ischemic attack, unspecified (principal); N17.9 Acute kidney failure, unspecified; I50.32 Chronic diastolic (congestive) heart failure; I69.354 Hemiplegia and hemiparesis following cerebral infarction affecting left non-dominant side; E87.2 Acidosis; G93.89 Other specified disorders of brain; I11.0 Hypertensive heart disease with heart failure; J44.9 Chronic obstructive pulmonary disease, unspecified; E11.9 Type 2 diabetes mellitus without complications; Z79.4 Long term (current) use of insulin; R29.810 Facial weakness; E78.5 Hyperlipidemia, unspecified; E86.1 Hypovolemia; E87.5 Hyperkalemia; E83.42 Hypomagnesemia; I65.22 Occlusion and stenosis of left carotid artery; R00.1 Bradycardia, unspecified; I25.10 Atherosclerotic heart disease of native coronary artery without angina pectoris; I25.2 Old myocardial infarction; F17.200 Nicotine dependence, unspecified, uncomplicated; Z71.6 Tobacco abuse counseling; Z79.02 Long term (current) use of antithrombotics/antiplatelets; Z79.899 Other long term (current) drug therapy; Z95.1 Presence of aortocoronary bypass graft; Z95.5 Presence of coronary angioplasty implant and graft; Z86.79 Personal history of other diseases of the circulatory system; Z98.890 Other specified postprocedural states
CPT/HCPCS: 36415; 51702; 70450; 70551; 71046; 76770; 80048; 80053; 80061; 81001; 83735; 84132; 84443; 84484; 85025; 85610; 85730; 93005; 93306; 93880; 94640; 96361; 96374; 96375; 99291

== ENCOUNTER 2020-09-11 21:10 | Inpatient (IN) | payer MEDICARE, OTHER ==
--- NOTE | 2020-09-11 22:04 | ED ---
Neuro HPI - General Chief Complaint: Neuro Symptoms/Deficit Stated Complaint: Weakness Time Seen by Provider: 09/11/20 21:13 Source: EMS Mode of arrival: EMS Limitations: no limitations - History of Present Illness Is the patient presenting with stroke symptoms?: Yes Last Known Well Date: 09/11/20 Last Known Well Time: 10:30 -: hour(s) Initial Comments: This patient is a 69-year-old woman who presents with what she is concerned represents another stroke. The patient had told nursing she was feeling weak on her left side since 10:30 in the morning. The patient's brother noted that she was having difficulty standing up. She was trying to get up and her left leg was not supporting her. This was at approximately the 5 PM. At that point they went to [facility] by ambulance, where the patient had head CT and lab testing and was then transferred here to have neurology consultation. When I interview the patient, she is not having headache. She denies dyspnea. She is complaining of some chronic back pain that she states is treated by Dr. Stratton. Location: left arm, left leg History of same: Yes Place: home Severity: moderate Quality: weak Improves With: none Worsens With: none Context: sudden onset Associated Symptoms: denies other symptoms - Related Data Home Medications: Home Medications Medication Instructions Recorded Confirmed Carvedilol [Coreg] 25 mg PO BID 03/30/20 09/12/20 Chlorthalidone 25 mg PO DAILY 03/30/20 09/12/20 Clopidogrel Bisulfate [Plavix] 75 mg PO DAILY 03/30/20 09/12/20 Insulin Glargine,Hum.rec.anlog 80 unit SQ HS 03/30/20 09/12/20 [Lantus Solostar] Isosorbide Mononitrate ER [Imdur] 60 mg PO DAILY 03/30/20 09/12/20 Metoclopramide [Reglan] 10 mg PO ACHS PRN 03/30/20 09/12/20 Montelukast [Singulair] 10 mg PO DAILY 03/30/20 09/12/20 Nitroglycerin Sl Tabs [Nitrostat] 0.4 mg SL Q5M PRN 03/30/20 09/12/20 Omeprazole 20 mg PO BID 03/30/20 09/12/20 amLODIPine [Norvasc] 10 mg PO DAILY 03/30/20 09/12/20 hydrALAZINE HCL [Apresoline] 100 mg PO DAILY 03/30/20 09/12/20 lisinopriL 40 mg PO DAILY 03/30/20 09/12/20 Atorvastatin [Lipitor] 80 mg PO DAILY 09/12/20 09/12/20 Ergocalciferol [Vitamin D2 (1250 1,250 mcg PO Q7D 09/12/20 09/12/20 Mcg = 36729 Iu)] Previous Rx's Medication Instructions Recorded Nicotine 21Mg/24Hr Patch [Habitrol] 1 patch TRANSDERM DAILY #30 patch 09/19/20 Allergies/Adverse Reactions: Allergies Allergy/AdvReac Type Severity Reaction Status Date / Time No Known Allergies Allergy Verified 03/30/20 18:25 Review of Systems ROS Statement: Those systems with pertinent positive or pertinent negative responses have been documented in the HPI. ROS Other: All systems not noted in ROS Statement are negative. Constitutional: Denies: fever, chills Eyes: Denies: vision change Respiratory: Denies: cough, dyspnea Cardiovascular: Denies: chest pain, palpitations, orthopnea, edema Gastrointestinal: Denies: abdominal pain, vomiting, diarrhea Genitourinary: Denies: dysuria, hematuria Musculoskeletal: Reports: back pain (Chronic) Skin: Denies: rash Neurological: Reports: weakness, numbness. Denies: headache, paresthesias, confusion General Exam Limitations: no limitations General appearance: alert, in no apparent distress Head exam: Present: atraumatic, normocephalic Eye exam: Present: normal appearance. Absent: scleral icterus, conjunctival injection ENT exam: Present: normal oropharynx Neck exam: Present: normal inspection, full ROM. Absent: tenderness Respiratory exam: Present: normal lung sounds bilaterally. Absent: respiratory distress, wheezes, rales, rhonchi, stridor Cardiovascular Exam: Present: regular rate, normal rhythm, normal heart sounds. Absent: systolic murmur, diastolic murmur, rubs, gallop GI/Abdominal exam: Present: soft. Absent: distended, tenderness, guarding, rebound, rigid, mass Extremities exam: Present: normal inspection, normal capillary refill. Absent: pedal edema, calf tenderness Neurological exam: Present: alert, oriented X3, motor sensory deficit. Absent: CN II-XII intact Expanded Neurological exam: Present: protecting the airway Patient oriented to: Present: person, place, time Speech: Present: fluid speech Cranial nerves: EOM's Intact: Normal Sensory exam: Upper Extremity Light Touch: Normal, Lower Extremity Light Touch: Normal Motor strength exam: RUE: 5, LUE: 2/1, RLE: 5, LLE: 2/1 Eye Response: (4) open spontaneously Motor Response: (6) obeys commands Verbal Response: (5) oriented Skin exam: Present: warm, dry, intact, normal color. Absent: rash Stroke MDM - Lab Data Result diagrams: 09/19/20 04:43 09/19/20 04:43 Lab Results 09/11/20 09/11/20 09/11/20 Range/Units 22:04 22:04 22:04 WBC 8.7 (3.8-10.6) k/uL RBC 3.60 L (3.80-5.40) m/uL Hgb 10.4 L (11.4-16.0) gm/dL Hct 30.5 L (34.0-46.0) % MCV 84.8 (80.0-100.0) fL MCH 28.9 (25.0-35.0) pg MCHC 34.1 (31.0-37.0) g/dL RDW 13.9 (11.5-15.5) % Plt Count 229 (150-450) k/uL MPV 7.7 Neutrophils % 64 % Lymphocytes % 27 % Monocytes % 5 % Eosinophils % 3 % Basophils % 1 % Neutrophils # 5.6 (1.3-7.7) k/uL Lymphocytes # 2.4 (1.0-4.8) k/uL Monocytes # 0.4 (0-1.0) k/uL Eosinophils # 0.3 (0-0.7) k/uL Basophils # 0.1 (0-0.2) k/uL PT 10.0 (9.0-12.0) sec INR 0.9 (<1.2) APTT 19.7 L (22.0-30.0) sec Sodium 139 (137-145) mmol/L Potassium 4.5 (3.5-5.1) mmol/L Chloride 108 H (98-107) mmol/L Carbon Dioxide 18 L (22-30) mmol/L Anion Gap 13 mmol/L BUN 47 H (7-17) mg/dL Creatinine 1.93 H (0.52-1.04) mg/dL Est GFR (CKD-EPI)AfAm 30 (>60 ml/min/1.73 sqM) Est GFR (CKD-EPI)NonAf 26 (>60 ml/min/1.73 sqM) Glucose 91 (74-99) mg/dL Calcium 9.5 (8.4-10.2) mg/dL Total Bilirubin 0.2 (0.2-1.3) mg/dL AST 19 (14-36) U/L ALT 9 (4-34) U/L Alkaline Phosphatase 105 (38-126) U/L Troponin I (0.000-0.034) ng/mL Total Protein 6.9 (6.3-8.2) g/dL Albumin 4.1 (3.5-5.0) g/dL 09/11/20 Range/Units 22:04 WBC (3.8-10.6) k/uL RBC (3.80-5.40) m/uL Hgb (11.4-16.0) gm/dL Hct (34.0-46.0) % MCV (80.0-100.0) fL MCH (25.0-35.0) pg MCHC (31.0-37.0) g/dL RDW (11.5-15.5) % Plt Count (150-450) k/uL MPV Neutrophils % % Lymphocytes % % Monocytes % % Eosinophils % % Basophils % % Neutrophils # (1.3-7.7) k/uL Lymphocytes # (1.0-4.8) k/uL Monocytes # (0-1.0) k/uL Eosinophils # (0-0.7) k/uL Basophils # (0-0.2) k/uL PT (9.0-12.0) sec INR (<1.2) APTT (22.0-30.0) sec Sodium (137-145) mmol/L Potassium (3.5-5.1) mmol/L Chloride (98-107) mmol/L Carbon Dioxide (22-30) mmol/L Anion Gap mmol/L BUN (7-17) mg/dL Creatinine (0.52-1.04) mg/dL Est GFR (CKD-EPI)AfAm (>60 ml/min/1.73 sqM) Est GFR (CKD-EPI)NonAf (>60 ml/min/1.73 sqM) Glucose (74-99) mg/dL Calcium (8.4-10.2) mg/dL Total Bilirubin (0.2-1.3) mg/dL AST (14-36) U/L ALT (4-34) U/L Alkaline Phosphatase (38-126) U/L Troponin I <0.012 (0.000-0.034) ng/mL Total Protein (6.3-8.2) g/dL Albumin (3.5-5.0) g/dL Past Medical History Past Medical History: CVA/TIA, Myocardial Infarction (CA) Additional Past Medical History / Comment(s): CVA 2017,CVA 2020, Last Myocardial Infarction Date:: 2014 History of Any Multi-Drug Resistant Organisms: None Reported Past Surgical History: Coronary Bypass/CABG, Heart Catheterization With Stent Additional Past Surgical History / Comment(s): back surgery, 4 vesssel bypass 2003, heart cath with no stent on 05/29 Past Anesthesia/Blood Transfusion Reactions: No Reported Reaction Date of Last Stent Placement:: 2014 Past Psychological History: No Psychological Hx Reported Smoking Status: Current every day smoker Past Alcohol Use History: None Reported Past Drug Use History: None Reported - Past Family History Mother Family Medical History: Myocardial Infarction (CA) Father Family Medical History: CVA/TIA Course Vital Signs 09/11/20 09/11/20 09/11/20 21:12 22:05 23:56 Temperature 98.3 F Pulse Rate 50 L 54 L 49 L Respiratory 18 18 16 Rate Blood Pressure 131/64 129/95 147/71 O2 Sat by Pulse 96 98 97 Oximetry Disposition Clinical Impression: CVA (cerebral vascular accident), Acute renal failure Disposition: ADMITTED IP TO THIS HOSP Condition: Serious Is patient prescribed a controlled substance at d/c from ED?: No
[2020-09-11 22:16] LABS: Basophils # (A) 0.1 k/uL (0-0.2); Basophils % (A) 1 %; Eosinophils # (A) 0.3 k/uL (0-0.7); Eosinophils % (A) 3 %; HCT 30.5 % (34.0-46.0); HGB 10.4 gm/dL (11.4-16.0); Lymphocytes # (A) 2.4 k/uL (1.0-4.8); Lymphocytes % (A) 27 %; MCH 28.9 pg (25.0-35.0); MCHC 34.1 g/dL (31.0-37.0); MCV 84.8 fL (80.0-100.0); Mean Platelet Volume 7.7; Monocytes # (A) 0.4 k/uL (0-1.0); Monocytes % (A) 5 %; Neutrophils # (A) 5.6 k/uL (1.3-7.7); Neutrophils % (A) 64 %; Platelet Count 229 k/uL (150-450); RDW 13.9 % (11.5-15.5); WBC 8.7 k/uL (3.8-10.6)
[2020-09-11 22:27] LABS: Albumin 4.1 g/dL (3.5-5.0); Calcium 9.5 mg/dL (8.4-10.2); Potassium 4.5 mmol/L (3.5-5.1); Total Bilirubin 0.2 mg/dL (0.2-1.3); Total Protein 6.9 g/dL (6.3-8.2)
[2020-09-11 22:35] LABS: INR 0.9 (<1.2)
[2020-09-11 22:51] LABS: Partial Thromboplastin Time 19.7 sec (22.0-30.0)
[2020-09-11] MEDS ORDERED: ASPIRIN 325 MG TAB PO STA (23:14)
[2020-09-11] MEDS ORDERED: METOCLOPRAMIDE 10 MG TAB PO PRN (23:16)
[2020-09-11] MEDS: SODIUM CHLORIDE 0.9% 1,000 ML IV SCH (23:27)
[2020-09-12 00:30] LABS: Glucose,Whole Blood 124 mg/dL (75-99)
[2020-09-12] MEDS: PANTOPRAZOLE 40 MG TABLET PO SCH (06:16)
[2020-09-12 06:28] LABS: Glucose,Whole Blood 76 mg/dL (75-99)
[2020-09-12 07:08] LABS: HCT 31.1 % (34.0-46.0); HGB 10.5 gm/dL (11.4-16.0); MCH 28.8 pg (25.0-35.0); MCHC 33.6 g/dL (31.0-37.0); MCV 85.8 fL (80.0-100.0); Mean Platelet Volume 7.6; Platelet Count 232 k/uL (150-450); RBC 3.63 m/uL (3.80-5.40); RDW 14.1 % (11.5-15.5); WBC 8.2 k/uL (3.8-10.6)
[2020-09-12 07:26] LABS: Calcium 9.5 mg/dL (8.4-10.2); Magnesium 1.7 mg/dL (1.6-2.3)
[2020-09-12 07:33] LABS: Potassium 4.2 mmol/L (3.5-5.1)
[2020-09-12] MEDS: ISOSORBIDE MONONITRATE ER 60 MG TAB.ER.24H PO SCH (08:48)
[2020-09-12] MEDS: CLOPIDOGREL 75 MG TAB PO SCH (08:48)
[2020-09-12] MEDS: DOCUSATE 100 MG CAP PO SCH ×2 (08:48→20:01)
[2020-09-12] MEDS: amLODIPine 10 MG TAB PO SCH (08:49)
[2020-09-12] MEDS: lisinopriL 20 MG TAB PO SCH (08:49)
--- NOTE | 2020-09-12 08:58 | US ---
EXAMINATION TYPE: US carotid duplex BILAT DATE OF EXAM: 09/12/2020 COMPARISON: 03/31/2020 carotid artery Doppler duplex CLINICAL HISTORY: Stenosis. History of stenting right side. EXAM MEASUREMENTS: RIGHT: Peak Systolic Velocity (PSV) cm/sec ----- Right CCA: 56.6 ----- Right ICA: 124.2 ----- Right ECA: 268.0 ICA/CCA ratio: 2.2 RIGHT: End Diastole cm/sec ----- Right CCA: 10.4 ----- Right ICA: 20.8 ----- Right ECA: 0.0 LEFT: Peak Systolic Velocity (PSV) cm/sec ----- Left CCA: 77.9 ----- Left ICA: 157.5 ----- Left ECA: 110.0 ICA/CCA ratio: 2.0 LEFT: End Diastole cm/sec ----- Left CCA: 9.1 ----- Left ICA: 23.5 ----- Left ECA: 0.0 VERTEBRALS (direction of flow): Right Vertebral: Antegrade Left Vertebral: Antegrade Rhythm: Normal Grayscale, color Doppler, spectral Doppler imaging performed of the carotid arteries. Waveform analys is does not show significant stenosis of the proximal internal carotid artery on the right. Atheromat ous change present at the carotid bifurcation on the left. Elevated peak systolic velocity noted in t he proximal internal carotid artery on the left, although the angle of measurement is not optimal. Fi ndings are similar to prior exam within the proximal internal carotid artery in the left, not felt li bridgett to be hemodynamically significant, MR or CT angiogram imaging could be performed for additional evaluation. Stenting noted right side. Elevated velocity right ECA. IMPRESSION: No hemodynamic significant stenosis of the proximal internal carotid artery on the right by Doppler criteria, an indirect measurement of carotid stenosis. Right carotid artery stent is note d incidentally. There is an elevated velocity in the proximal internal carotid artery on the left w ith borderline ICA to CCA elevated ratio but no elevation in end-diastolic velocity with technical co nsideration as described. Criteria for Assigning % of Stenosis / Diameter reduction (Estimation based on the indirect measurements of the internal carotid artery velocities (ICA PSV). 1. Normal (no stenosis)=ICA PSV < 125 cm/s: ratio < 2.0: ICA EDV<40 cm/s. 2. Less than 50% stenosis=ICA PSV < 125 cm/s: ratio < 2.0: ICA EDV<40 cm/s. 3. 50 to 69% stenosis=ICA PSV of 125 to 230 cm/s: ration 2.0 ? 4.0: ICA EDV 40-100 cm/s. 4. Greater than 70% stenosis to near occlusion= ICA PSV > 230 cm/s: ratio > 4.0: ICA EDV > 100 cm/s. 5. Near occlusion= ICA PSV velocities may be low or undetectable: variable ratio and ICA EDV. 6. Total occlusion=unable to detect flow.
[2020-09-12] MEDS ORDERED: CHLORTHALIDONE 25 MG TAB PO SCH (09:00)
[2020-09-12] MEDS ORDERED: ASPIRIN 325 MG TAB PO SCH (09:00)
[2020-09-12] MEDS ORDERED: INSULIN DETEMIR (LEVEMIR) 100 UNIT/ML SYR SQ SCH (09:00)
[2020-09-12] MEDS ORDERED: FAMOTIDINE 20 MG/2 ML VIAL IV SCH (09:00)
--- NOTE | 2020-09-12 10:53 | ECHOF ---
Referral Reason:Thrombus MEASUREMENTS -------- HEIGHT: 157.5 cm WEIGHT: 46.7 kg BP: 132/61 RVIDd: 3.2 cm (< 3.3) IVSd: 1.6 cm (0.6 - 1.1) LVIDd: 4.3 cm (3.9 - 5.3) LVPWd: 1.4 cm (0.6 - 1.1) IVSs: 2.0 cm LVIDs: 3.0 cm LVPWs: 1.6 cm LA Diam: 3.7 cm (2.7 - 3.8) LAESV Index (A-L): 36.50 ml/m Ao Diam: 3.1 cm (2.0 - 3.7) AV Cusp: 2.0 cm (1.5 - 2.6) MV EXCURSION: 17.245 mm (> 18.000) MV EF SLOPE: 60 mm/s (70 - 150) EPSS: 0.3 cm MV E Bryce: 0.93 m/s MV DecT: 283 ms MV A Bryce: 1.13 m/s MV E/A Ratio: 0.82 RAP: 5.00 mmHg RVSP: 22.12 mmHg FINDINGS -------- Sinus rhythm. This was a technically adequate study. The left ventricular size is normal. There is moderate concentric left ventricular hypertrophy. O verall left ventricular systolic function is normal with, an EF between 55 - 60 %. The right ventricle is normal in size. LA is moderately dilated 34-39 ml/m2 The right atrial size is normal. Interatrial and interventricular septum intact. The aortic valve is trileaflet, and appears structurally normal. No aortic stenosis or regurgitation. The mitral valve is normal. Mild mitral annular calcification present. The tricuspid valve appears structurally normal. Mild tricuspid regurgitation present. Right vent ricular systolic pressure is normal at < 35 mmHg. Trace/mild (physiologic) pulmonic regurgitation. The aortic root size is normal. Normal inferior vena cava with normal inspiratory collapse consistent with estimated right atrial pre ssure of 5 mmHg. There is no pericardial effusion. CONCLUSIONS -------- 1. There is moderate concentric left ventricular hypertrophy. 2. Overall left ventricular systolic function is normal with, an EF between 55 - 60 %. 3. LA is moderately dilated 34-39 ml/m2 4. The aortic valve is trileaflet, and appears structurally normal. No aortic stenosis or regurgitati on. 5. Mild mitral annular calcification present. 6. Mild tricuspid regurgitation present. 7. Trace/mild (physiologic) pulmonic regurgitation. 8. There is no pericardial effusion. LINING MECHANIC: Tamra Nuñez RDCS
[2020-09-12 11:03] LABS: Chol/HDL Ratio 6.41; LDL Cholesterol,Calculated 134.2 mg/dL (0.0-131.0); VLDL Calculation 38.8 mg/dL (5.00-40.00)
[2020-09-12 11:50] LABS: Glucose,Whole Blood 135 mg/dL (75-99)
[2020-09-12] MEDS: carvediloL 12.5 MG TAB PO SCH ×2 (12:40→21:17)
[2020-09-12] MEDS: SODIUM CHLORIDE 0.9% 1,000 ML IV SCH (12:41)
--- NOTE | 2020-09-12 12:50 | P.CNNES ---
History of Present Illness Consult date: 09/12/20 Requesting physician: Fernando Pabon Reason for Consult: acute ischemic attack History of Present Illness: This is a 69-year-old woman with medical history of TIA (left sided weaknes on 03/2020), right MCA stroke with residual left-sided weakness, right ICA stenosis status post stenting, reported left ICA stenosis, chronic lower back pain, myocardial infarction status post stent and CABG, who was transfered from [facility] 09[facility]2020 for worsening of her left-sided weakness at around 10- 10:30 AM on the day of presentation. She stated her weakness of the left forearm and hand is worse than baseline. She denies to me having worsening weakness of the leg but per ED note, was having weakness in her left leg and she felt like upon getting up she had difficulty her left leg support her and that was approximately 5 PM. Patient was said taken to outside hospital ([facility]) which she had CT of the head and then was transferred to our facility for a neurological consultation. Patient stated that the she has been taking Plavix and Lipitor but has ran out of aspirin for the last 1 month and has not had a chance to refill it. Patient denies of any visual disturbance and that's new, any numbness or tingling, difficulty swallowing or difficulty getting her words out. He denies of any weakness over the right upper and lower extremity at. Patient home medication is Plavix 75 mg daily, Lipitor 80 mg daily, Lipitor, hydralazine, chlorthalidone, carvedilol, Xanax, isosorbide, insulin. I personally saw the patient initially on 03/31/2020 for increased weakness of left side and I felt her symptoms were likely due to transient ischemic attack. Patient had MRI of the brain and as reported as mild diffuse cerebral atrophy with moderate chronic small vessel ischemic changes significant old right sided the middle cerebral artery distribution infarct are all identified. No MRI sven dence for recent infarct. He also had the rest of the stroke workup which she had carotid duplex which shows extensive carotid plaque. Finding suggest 50-69% stenosis involving the proximal right ICA. Patient was on aspirin 81 mg and Plavix as well as Lipitor 80 mg she refused a vascular surgery consult and she stated that she'll follow-up with her plant maintenance manager as an outpatient regarding her carotid stenosis. Some of the workup in the hospital consisted of: Initial vital signs: Blood pressure of 131/74, heart rate of the 50, respiratory of 18, temperature of 98.3 Fahrenheit oral and pulse ox of 96% room air. Carotid duplex was reported as no hemodynamic significant stenosis of the proxim al internal carotid artery on the right by Doppler criteria, and in direct measurement of carotid stenosis. Right carotid artery stent is noted incidentally. There is elevated velocity in the proximal internal carotid artery on the left with borderline ICA to CCA elevated ratio but no elevation in end diastolic velocity with technical consideration as described. CBC with differential is a hemoglobin is 10.4 hematocrit is 30.5 otherwise that the CBC with differential is unremarkable. Chemistry panel is the creatinine is 1.93 and a BUN 47 which are elevated the repeated the creatinine is 1.56. Otherwise the rest of chemistry panel is unremarkable. The glucose on presentation is 91 and POC is 124 Review of Systems Review of system: The 12 point system was reviewed and apparent positive and negative per HPI. Past Medical History Past Medical History: CVA/TIA, Myocardial Infarction ([place]) Additional Past Medical History / Comment(s): CVA 2017,CVA 2020, Last Myocardial Infarction Date:: 2014 History of Any Multi-Drug Resistant Organisms: None Reported Past Surgical History: Coronary Bypass/CABG, Heart Catheterization With Stent Additional Past Surgical History / Comment(s): back surgery, 4 vesssel bypass 2003, heart cath with no stent on 05/29 Past Anesthesia/Blood Transfusion Reactions: No Reported Reaction Date of Last Stent Placement:: 2014 Past Psychological History: No Psychological Hx Reported Smoking Status: Current every day smoker Past Alcohol Use History: None Reported Past Drug Use History: None Reported - Past Family History Mother Family Medical History: Myocardial Infarction ([place]) Father Family Medical History: CVA/TIA Medications and Allergies Home Medications Medication Instructions Recorded Confirmed Type Carvedilol [Coreg] 25 mg PO BID 03/30/20 09/12/20 History Chlorthalidone 25 mg PO DAILY 03/30/20 09/12/20 History Clopidogrel Bisulfate [Plavix] 75 mg PO DAILY 03/30/20 09/12/20 History Insulin Glargine,Hum.rec.anlog 80 unit SQ HS 03/30/20 09/12/20 History [Lantus Solostar] Isosorbide Mononitrate ER [Imdur] 60 mg PO DAILY 03/30/20 09/12/20 History Metoclopramide [Reglan] 10 mg PO ACHS PRN 03/30/20 09/12/20 History Montelukast [Singulair] 10 mg PO DAILY 03/30/20 09/12/20 History Nitroglycerin Sl Tabs [Nitrostat] 0.4 mg SL Q5M PRN 03/30/20 09/12/20 History Omeprazole 20 mg PO BID 03/30/20 09/12/20 History amLODIPine [Norvasc] 10 mg PO DAILY 03/30/20 09/12/20 History hydrALAZINE HCL [Apresoline] 100 mg PO DAILY 03/30/20 09/12/20 History lisinopriL 40 mg PO DAILY 03/30/20 09/12/20 History ALPRAZolam [Xanax] 1 mg PO TID PRN 09/12/20 09/12/20 History Atorvastatin [Lipitor] 80 mg PO DAILY 09/12/20 09/12/20 History Ergocalciferol [Vitamin D2 (1250 1,250 mcg PO Q7D 09/12/20 09/12/20 History Mcg = 87184 Iu)] HYDROcodone/APAP 10-325MG [[place] 1 tab PO QID 09/12/20 09/12/20 History 10-325] Allergies Allergy/AdvReac Type Severity Reaction Status Date / Time No Known Allergies Allergy Verified 03/30/20 18:25 Physical Examination - Vital Signs Vital Signs: Vital Signs Temp Pulse Pulse Resp BP BP Pulse Ox 09/12/20 08:00 54 L 16 179/77 97 09/12/20 03:45 98.4 F 49 L 17 132/61 96 09/12/20 00:58 48 L 09/12/20 00:20 98.3 F 48 L 18 164/77 98 09/11/20 23:56 49 L 16 147/71 97 09/11/20 22:05 54 L 18 129/95 98 09/11/20 21:12 98.3 F 50 L 18 131/64 96 Intake and Output 09/11/20 09/12/20 09/12/20 22:59 06:59 14:59 Intake Total 240 Balance 240 Intake: Oral 240 Other: Voiding Method Diaper # Voids 0 Weight 77.111 kg 47 kg GENERAL: The patient is lying in bed and is not in acute distress. CHEST: The heart rate is regular rate rhythm. No murmurs to auscultation. No carotid bruit bilaterally. LUNG: Clear to auscultation bilaterally no wheezing noted throughout. Not labored breathing. ABDOMEN/GI: Bowel sounds present in all 4 quadrants. No tenderness to palpation throughout. NEUROLOGICAL: Higher mental function: The patient is awake, alert, oriented to self, place and time. Patient is following commands. No aphasia and no neglect. Cranial nerves: The pupils are round, equal and reactive to light and accommodation. Visual jj are full to confrontation throughout. Extraocular movement is intact no nystagmus is noted. Facial sensation is normal to touch throughout. The facial strength is mild left lower facial weakness. Hearing is normal bilaterally to hand rub. Tongue is midline and moved [id number] witho ut any difficulty. No dysarthria is noted. Shoulder shrug is normal bilaterally. Motor: Gait is deferred. The strength is left arm is 4- while left hand traffic control flagger is 3-4. Left hip flexion is 4+ to 5-, knee flexions is 5-. Otherwise 5/5 throughout. Slight increase tone in left hand. Cerebellum: Normal finger to nose bilaterally. Sensation: Sensation is normal to touch throughout. Reflexes (right/left): 3+ over the left side (except at left triceps 2+). Otherwise 2+ throughout. Plantars is upgoing over the left and mute over the right. Results - Laboratory Findings CBC and BMP: 09/12/20 06:16 09/12/20 06:16 Abnormal Lab Findings: Abnormal Labs 09/11/20 09/11/20 09/11/20 22:04 22:04 22:04 RBC 3.60 L Hgb 10.4 L Hct 30.5 L APTT 19.7 L Chloride 108 H Carbon Dioxide 18 L BUN 47 H Creatinine 1.93 H POC Glucose (mg/dL) 09/12/20 09/12/20 09/12/20 00:26 06:16 06:16 RBC 3.63 L Hgb 10.5 L Hct 31.1 L APTT Chloride 110 H Carbon Dioxide 20 L BUN 41 H Creatinine 1.56 H POC Glucose (mg/dL) 124 H Assessment and Plan Assessment: Worsening left-sided weakness. Likely acute ischemic stroke (ran out of her ASA for the last one month). Acute on chronic kidney insufficiency History of right MCA with residual left-sided weakness History of Right ICA stenosis status post stenting Reported left ICA stenosis according to the patient that was notified by her plant maintenance manager (but on our carotid duplex does not reveal stenosis). History of TIA with left-sided weakness in the March 2020 Chronic lower back pain History of myocardial infarction status post stenting and CABG Medication Non-compliance Plan: Patient was given aspirin 325mg once in the ED and was started on the aspirin 325 daily and Plavix 75 mg daily (I lowered ASA to 81mg daily). The patient to continue dual antiplatelets which will help with secondary stroke prophylaxis and beneficial for carotid stenosis. Restarted Lipitor 80mg qhs. I ordered MRI of the brain. 2-D echo, lipid panel are ordered. Please the patient on continuous cardiac monitoring and every 4 hours neuro checks PT, OT and SOCIAL MEDIA CAMPAIGN MANAGER are consulted. We'll defer the rest of the medical management to the primary team. The patient needs to follow-up with a neurologist within 1-2 weeks as outpatient and her plant maintenance manager. The plan is discussed with the nurse. Thank you for the consultation. Brenton Lai MD Neuro-Hospitalist Time with Patient: Greater than 30
--- NOTE | 2020-09-12 14:58 | MR ---
MR brain without contrast HISTORY: Stroke, left-sided weakness worsening Multiplanar multisequence imaging obtained through the brain Correlation MR brain 03/31/2020, CT 09/11/2020 Restricted diffusion is present along the right frontal lobe, there is corresponding hyperintensity a nd inversion recovery and T2-weighted sequences. Previous cerebrovascular accident present along the distribution of the right middle cerebral artery is again noted, pericallosal confluent, periventricu lar and subcortical scattered hyperintensities on inversion recovery T2-weighted sequences again note d. Cortical atrophy shows a similar appearance. There is no hemorrhage or hydrocephalus. Corpus callo sum, pituitary, cervical medullary junction, cerebellopontine angles are stable. Some mild increased signal along the external auditory canals is again seen. IMPRESSION: Subacute infarct along the distribution of the right anterior cerebral artery. Age-relate d changes of atrophy and chronic small vessel ischemia
--- NOTE | 2020-09-12 15:18 | XR ---
Left hip HISTORY: Possible dislocation, pain 2 views of the left hip Exam somewhat limited by technique. Joint space and alignment are maintained. Bone mineralization may be somewhat reduced. There are vascular calcifications noted incidentally. IMPRESSION: No fracture or dislocation is evident. Hip MRI may be of benefit as indicated.
[2020-09-12 16:33] LABS: Hemoglobin A1C 6.9 % (4.0-6.0)
[2020-09-12 16:52] LABS: Glucose,Whole Blood 162 mg/dL (75-99)
[2020-09-12] MEDS: ATORVASTATIN 80 MG TAB PO SCH (20:01)
[2020-09-12] MEDS: MONTELUKAST 10 MG TAB PO SCH (20:01)
[2020-09-12 20:31] LABS: Glucose,Whole Blood 162 mg/dL (75-99)
[2020-09-12] MEDS: HYDROcodone/APAP 10-325MG 1 EACH TAB PO PRN (21:16)
[2020-09-12] MEDS: ALPRAZolam 1 MG TAB PO STA ×2 (21:16→21:17)
[2020-09-12] MEDS: INSULIN DETEMIR (LEVEMIR) 100 UNIT/ML SYR SQ SCH (21:17)
[2020-09-12] MEDS ORDERED: HYDROcodone/APAP 10-325MG 1 EACH TAB PO SCH (22:00)
[2020-09-13] MEDS: SODIUM CHLORIDE 0.9% 1,000 ML IV SCH ×3 (00:10→23:12)
--- NOTE | 2020-09-13 01:18 | P.HPIM ---
History of Present Illness H&P Date: 09/12/20 Chief Complaint: Left leg weakness. Patient is a 69-year-old female with a known history of CVA with left-sided weakness, history of [place], coronary disease with history of CABG was sent from outside hospital facility due to worsening left-sided weakness. Patient has history of right MCA stroke with residual left-sided weakness., Right ICA stenosis and status post stenting. Patient states that she was at home with her brother yesterday and suddenly noticed increasing weakness in the left arm and leg and was not able to sit on the couch and leaned onto the floor. Patient states that her brother could not help him and came to ER. Otherwise patient denies any difficulty in vision, no difficulty in swallowing or mouth deviation. No bladder or bowel incontinence. Carotid duplex showed no significant stenosis of the proximal ICA on the right. Right carotid artery stent is noted. CT head at outside hospital facility showed no acute intracranial process. Laboratory data showed WBC 8.7 hemoglobin 10.4 and platelets 229 Sodium 139 potassium 4.5 chloride 108 BUN 47 creatinine 1.93 LDL 134 Liver enzymes are not elevated Past Medical History Past Medical History: CVA/TIA, Myocardial Infarction ([place]) Additional Past Medical History / Comment(s): CVA 2017,CVA 2020, Last Myocardial Infarction Date:: 2014 History of Any Multi-Drug Resistant Organisms: None Reported Past Surgical History: Coronary Bypass/CABG, Heart Catheterization With Stent Additional Past Surgical History / Comment(s): back surgery, 4 vesssel bypass 2003, heart cath with no stent on 05/29 Past Anesthesia/Blood Transfusion Reactions: No Reported Reaction Date of Last Stent Placement:: 2014 Past Psychological History: No Psychological Hx Reported Smoking Status: Current every day smoker Past Alcohol Use History: None Reported Past Drug Use History: None Reported - Past Family History Mother Family Medical History: Myocardial Infarction ([place]) Father Family Medical History: CVA/TIA Medications and Allergies Home Medications Medication Instructions Recorded Confirmed Type Carvedilol [Coreg] 25 mg PO BID 03/30/20 09/12/20 History Chlorthalidone 25 mg PO DAILY 03/30/20 09/12/20 History Clopidogrel Bisulfate [Plavix] 75 mg PO DAILY 03/30/20 09/12/20 History Insulin Glargine,Hum.rec.anlog 80 unit SQ HS 03/30/20 09/12/20 History [Lantus Solostar] Isosorbide Mononitrate ER [Imdur] 60 mg PO DAILY 03/30/20 09/12/20 History Metoclopramide [Reglan] 10 mg PO ACHS PRN 03/30/20 09/12/20 History Montelukast [Singulair] 10 mg PO DAILY 03/30/20 09/12/20 History Nitroglycerin Sl Tabs [Nitrostat] 0.4 mg SL Q5M PRN 03/30/20 09/12/20 History Omeprazole 20 mg PO BID 03/30/20 09/12/20 History amLODIPine [Norvasc] 10 mg PO DAILY 03/30/20 09/12/20 History hydrALAZINE HCL [Apresoline] 100 mg PO DAILY 03/30/20 09/12/20 History lisinopriL 40 mg PO DAILY 03/30/20 09/12/20 History ALPRAZolam [Xanax] 1 mg PO TID PRN 09/12/20 09/12/20 History Atorvastatin [Lipitor] 80 mg PO DAILY 09/12/20 09/12/20 History Ergocalciferol [Vitamin D2 (1250 1,250 mcg PO Q7D 09/12/20 09/12/20 History Mcg = [id number] Iu)] HYDROcodone/APAP 10-325MG [[place] 1 tab PO QID 09/12/20 09/12/20 History 10-325] Allergies Allergy/AdvReac Type Severity Reaction Status Date / Time No Known Allergies Allergy Verified 03/30/20 18:25 Physical Exam Vitals: Vital Signs Temp Pulse Pulse Resp BP BP Pulse Ox 09/12/20 08:00 54 L 16 179/77 97 09/12/20 03:45 98.4 F 49 L 17 132/61 96 09/12/20 00:58 48 L 09/12/20 00:20 98.3 F 48 L 18 164/77 98 09/11/20 23:56 49 L 16 147/71 97 09/11/20 22:05 54 L 18 129/95 98 09/11/20 21:12 98.3 F 50 L 18 131/64 96 Intake and Output 09/11/20 09/12/20 09/12/20 22:59 06:59 14:59 Intake Total 240 Balance 240 Intake: Oral 240 Other: Voiding Method Diaper # Voids 0 Weight 77.111 kg 47 kg Results CBC & Chem 7: 09/12/20 06:16 09/12/20 06:16 Labs: Abnormal Lab Results - Last 24 Hours (Table) 09/11/20 09/11/20 09/11/20 Range/Units 22:04 22:04 22:04 RBC 3.60 L (3.80-5.40) m/uL Hgb 10.4 L (11.4-16.0) gm/dL Hct 30.5 L (34.0-46.0) % APTT 19.7 L (22.0-30.0) sec Chloride 108 H (98-107) mmol/L Carbon Dioxide 18 L (22-30) mmol/L BUN 47 H (7-17) mg/dL Creatinine 1.93 H (0.52-1.04) mg/dL POC Glucose (mg/dL) (75-99) mg/dL 09/12/20 09/12/20 09/12/20 Range/Units 00:26 06:16 06:16 RBC 3.63 L (3.80-5.40) m/uL Hgb 10.5 L (11.4-16.0) gm/dL Hct 31.1 L (34.0-46.0) % APTT (22.0-30.0) sec Chloride 110 H (98-107) mmol/L Carbon Dioxide 20 L (22-30) mmol/L BUN 41 H (7-17) mg/dL Creatinine 1.56 H (0.52-1.04) mg/dL POC Glucose (mg/dL) 124 H (75-99) mg/dL Thrombosis Risk Factor Assmnt - DVT/VTE Prophylaxis DVT/VTE Prophylaxis: Pharmacologic Prophylaxis ordered - Choose All That Apply Any of the Below Risk Factors Present?: Yes Each Factor Represents 1 point: Obesity (BMI >25) Other Risk Factors: Yes Each Risk Factor Represents 2 Points: Age 61-74 years Other congenital or acquired thrombophilia - If yes, enter type in comment: No Thrombosis Risk Factor Assessment Total Risk Factor Score: 3 Thrombosis Risk Factor Assessment Level: Moderate Risk Assessment and Plan Assessment: Worsening left-sided weakness with prior history of an right MCA stroke. possible acute CVA Acute kidney injury likely prerenal. Creatinine 1.93 on admission History of right MCA CVA with left-sided weakness History of right ICA stenosis status post stent placement Chronic low back pain History of coronary disease status post stent placement and CABG Medication noncompliance Normocytic anemia with hemoglobin 10.4 Hyperlipidemia Diabetes type 2 insulin-dependent DVT prophylaxis Heparin subcu Plan: Patient will be cannula aspirin and Lasix and her milligrams daily was added. Neurology recommends dual antiplatelet therapy and start back on Lipitor. Patient is scheduled for MRI of the brain. 2D echocardiogram showed normal ejection fraction no significant valvular abnormalities noted. Continue neurochecks. PT OT and speech and swallow Continue with insulin regimen and titrate dose as needed. Evaluation. Continue with GI and DVT prophylaxis. Neurology on board on board. Time with Patient: Greater than 30
[2020-09-13] MEDS: HYDROcodone/APAP 10-325MG 1 EACH TAB PO PRN ×2 (03:47→16:33)
[2020-09-13 06:03] LABS: Glucose,Whole Blood 95 mg/dL (75-99)
[2020-09-13] MEDS: PANTOPRAZOLE 40 MG TABLET PO SCH (06:03)
[2020-09-13 07:52] LABS: Basophils # (A) 0.1 k/uL (0-0.2); Basophils % (A) 1 %; Eosinophils # (A) 0.2 k/uL (0-0.7); Eosinophils % (A) 3 %; HCT 28.7 % (34.0-46.0); HGB 9.9 gm/dL (11.4-16.0); Lymphocytes # (A) 2.6 k/uL (1.0-4.8); Lymphocytes % (A) 35 %; MCH 29.6 pg (25.0-35.0); MCHC 34.7 g/dL (31.0-37.0); MCV 85.5 fL (80.0-100.0); Mean Platelet Volume 7.5; Monocytes # (A) 0.4 k/uL (0-1.0); Monocytes % (A) 5 %; Neutrophils # (A) 4.1 k/uL (1.3-7.7); Neutrophils % (A) 55 %; Platelet Count 202 k/uL (150-450); RBC 3.35 m/uL (3.80-5.40); RDW 13.9 % (11.5-15.5); WBC 7.4 k/uL (3.8-10.6)
[2020-09-13 08:15] LABS: Calcium 9.2 mg/dL (8.4-10.2); Potassium 4.4 mmol/L (3.5-5.1)
[2020-09-13] MEDS: amLODIPine 10 MG TAB PO SCH (08:45)
[2020-09-13] MEDS: FAMOTIDINE 20 MG TAB PO SCH (08:45)
[2020-09-13] MEDS: HEPARIN SODIUM,PORCINE/PF 5,000 UNIT/0.5 ML SYRINGE SQ SCH ×3 (08:45→23:11)
[2020-09-13] MEDS: ISOSORBIDE MONONITRATE ER 60 MG TAB.ER.24H PO SCH (08:45)
[2020-09-13] MEDS: DOCUSATE 100 MG CAP PO SCH ×2 (08:45→20:56)
[2020-09-13] MEDS: carvediloL 12.5 MG TAB PO SCH ×2 (08:46→20:55)
[2020-09-13] MEDS: CLOPIDOGREL 75 MG TAB PO SCH (08:46)
[2020-09-13] MEDS: ASPIRIN 81 MG PO SCH (08:46)
[2020-09-13] MEDS: lisinopriL 20 MG TAB PO SCH (08:46)
[2020-09-13 11:36] LABS: Glucose,Whole Blood 104 mg/dL (75-99)
--- NOTE | 2020-09-13 14:05 | P.CRDCN ---
History of Present Illness Consult date: 09/13/20 History of present illness: HISTORY OF PRESENT ILLNESS: This is a 69-year-old female with a past medical history significant for coronary artery disease with previous CABG, carotid stenosis with right carotid stenting, peripheral vascular disease, hyperlipidemia, hypertension, and anxiety. Patient follows with a cement mason helper in [place], [place]. We have been asked to see the patient in consultation for ROGER. Patient examined at the bedside. Patient was admitted to the hospital with worsening left sided weakness and possible CVA. Patient was prescribed aspirin and plavix on an outpatient basis, but apparently she ran out of her aspirin and has not taken it for the past month. Patient examined at the bedside. She continues to have left sided weakness. Denies chest pain or pressure. Telemetry reveals sinus mechanism. Patient denies hx of afib. Telemetry reveals sinus mechanism Echocardiogram completed revealed ejection fraction 55-60%, aortic valve trileaflet and appears structurally normal. No aortic stenosis or regurgitation. Mild tricuspid regurgitation. No pericardial effusion. Carotid Doppler: No hemodynamic significant stenosis of the proximal internal carotid artery on the right by Doppler criteria. Right carotid artery stent is noted. There is elevated velocity in the proximal internal carotid artery on the left with borderline ICA to CCA elevated ratio but no elevation and end diastolic velocity. MRI of the brain: Subacute infarct along the distribution of the right anterior cerebral artery. Age related changes of atrophy and chronic small vessel ischemia. Laboratory data: WBC 7.4. Hemoglobin 9.9. The count 202. Sodium 139. Potassium 4.4. BUN 31. Creatinine 1.24. Current home cardiac medications include lisinopril 40 g daily, hydralazine 100 mg daily, amlodipine 10 mg daily, Imdur 60 mg daily, Plavix 75 mg daily, chlorthalidone 25 mg daily, Coreg 25 mg twice a day, Lipitor 80 mg daily REVIEW OF SYSTEMS: At the time of my exam: CONSTITUTIONAL: Denies fever or chills. HEENT: Denies blurred vision, vision changes, or eye pain. Denies hemoptysis CARDIOVASCULAR: Denies chest pain. Denies orthopnea. Denies PND. Denies palpitations RESPIRATORY: Denies shortness of breath. GASTROINTESTINAL: Denies abdominal pain. Denies nausea or vomiting. HEMATOLOGIC: Denies bleeding disorders. GENITOURINARY: Denies any blood in urine. SKIN: Denies pruitis. Denies rash. PHYSICAL EXAM: VITAL SIGNS: Reviewed. GENERAL: Well-developed in no acute distress. HEENT: Head is normocephalic. Pupils are equal, round. Sclerae anicteric. Mucous membranes of the mouth are moist. Neck supple. No JVD or thyromegaly LUNGS: Respirations even and unlabored. Lungs essentially clear to auscultation bilaterally. HEART: Regular rate and rhythm. S1 and S2 heard. ABDOMEN: Soft. Nondistended. Nontender. EXTREMITIES: Left sided weakness. No clubbing or cyanosis. Peripheral pulses intact. No lower extremity edema NEUROLOGIC: Awake and alert. Oriented x 3. ASSESSMENT: Worsening left sided weakness, MRI reveals subacute infarct History of CVA with left sided weakness History of carotid stenosis with right carotid stenting Coronary artery disease with previous stenting and CABG 4 (patient thinks 2014?) History of TIA Acute on chronic kidney disease PLAN: Continue cardiac medications Resume home dose of Hydralazine Continue aspirin, plavix, and lipitor Patient to undergo ROGER tomorrow with Dr. Rachel SOLIS at midnight Further recommendations pending patient course Nurse practitioner note has been reviewed by physician. Signing provider agrees with the documented findings, assessment, and plan of care. Past Medical History Past Medical History: CVA/TIA, Myocardial Infarction (ID) Additional Past Medical History / Comment(s): CVA 2017,CVA 2020, Last Myocardial Infarction Date:: 2014 History of Any Multi-Drug Resistant Organisms: None Reported Past Surgical History: Coronary Bypass/CABG, Heart Catheterization With Stent Additional Past Surgical History / Comment(s): back surgery, 4 vesssel bypass 2003, heart cath with no stent on 05/29 Past Anesthesia/Blood Transfusion Reactions: No Reported Reaction Date of Last Stent Placement:: 2014 Past Psychological History: No Psychological Hx Reported Smoking Status: Current every day smoker Past Alcohol Use History: None Reported Past Drug Use History: None Reported - Past Family History Mother Family Medical History: Myocardial Infarction (ID) Father Family Medical History: CVA/TIA Medications and Allergies Home Medications Medication Instructions Recorded Confirmed Type Carvedilol [Coreg] 25 mg PO BID 03/30/20 09/12/20 History Chlorthalidone 25 mg PO DAILY 03/30/20 09/12/20 History Clopidogrel Bisulfate [Plavix] 75 mg PO DAILY 03/30/20 09/12/20 History Insulin Glargine,Hum.rec.anlog 80 unit SQ HS 03/30/20 09/12/20 History [Lantus Solostar] Isosorbide Mononitrate ER [Imdur] 60 mg PO DAILY 03/30/20 09/12/20 History Metoclopramide [Reglan] 10 mg PO ACHS PRN 03/30/20 09/12/20 History Montelukast [Singulair] 10 mg PO DAILY 03/30/20 09/12/20 History Nitroglycerin Sl Tabs [Nitrostat] 0.4 mg SL Q5M PRN 03/30/20 09/12/20 History Omeprazole 20 mg PO BID 03/30/20 09/12/20 History amLODIPine [Norvasc] 10 mg PO DAILY 03/30/20 09/12/20 History hydrALAZINE HCL [Apresoline] 100 mg PO DAILY 03/30/20 09/12/20 History lisinopriL 40 mg PO DAILY 03/30/20 09/12/20 History ALPRAZolam [Xanax] 1 mg PO TID PRN 09/12/20 09/12/20 History Atorvastatin [Lipitor] 80 mg PO DAILY 09/12/20 09/12/20 History Ergocalciferol [Vitamin D2 (1250 1,250 mcg PO Q7D 09/12/20 09/12/20 History Mcg = 81004 Iu)] HYDROcodone/APAP 10-325MG [[place] 1 tab PO QID 09/12/20 09/12/20 History 10-325] Allergies Allergy/AdvReac Type Severity Reaction Status Date / Time No Known Allergies Allergy Verified 03/30/20 18:25 Physical Exam Vitals: Vital Signs Temp Pulse Resp BP Pulse Ox 09/13/20 12:00 53 L 16 166/92 95 09/13/20 08:00 98.5 F 55 L 16 191/74 97 09/13/20 03:35 98.3 F 49 L 17 141/51 94 L 09/12/20 23:09 51 L 16 156/69 95 09/12/20 19:50 98.8 F 52 L 16 155/88 98 09/12/20 16:00 55 L 16 102/46 97 09/12/20 14:00 16 Intake and Output 09/12/20 09/13/20 09/13/20 22:59 06:59 14:59 Intake Total 240 Output Total 250 300 Balance -10 -300 Intake: Oral 240 Output: Urine 250 300 Other: Voiding Method Diaper # Voids 1 1 Weight 76 kg Results 09/13/20 07:31 09/13/20 07:31 CBC 09/13/20 Range/Units 07:31 WBC 7.4 (3.8-10.6) k/uL RBC 3.35 L (3.80-5.40) m/uL Hgb 9.9 L (11.4-16.0) gm/dL Hct 28.7 L (34.0-46.0) % Plt Count 202 (150-450) k/uL Comprehensive Metabolic Panel 09/13/20 Range/Units 07:31 Sodium 139 (137-145) mmol/L Potassium 4.4 (3.5-5.1) mmol/L Chloride 111 H (98-107) mmol/L Carbon Dioxide 21 L (22-30) mmol/L BUN 31 H (7-17) mg/dL Creatinine 1.24 H (0.52-1.04) mg/dL Glucose 87 (74-99) mg/dL Calcium 9.2 (8.4-10.2) mg/dL Current Medications Generic Name Dose Route Start Last Admin Trade Name Freq PRN Reason Stop Dose Admin Hydrocodone Bitart/Acetaminophen 1 each 09/12/20 20:26 09/13/20 03:47 Hydrocodone/Apap 10-325mg 1 Each Tab PO 1 each QID PRN Administration Pain Amlodipine Besylate 10 mg 09/12/20 09:00 09/13/20 08:45 Amlodipine 10 Mg Tab PO 10 mg DAILY SRINIVASA Administration Aspirin 81 mg 09/13/20 09:00 09/13/20 08:46 Aspirin 81 Mg PO 81 mg DAILY SRINIVASA Administration Atorvastatin Calcium 80 mg 09/12/20 21:00 09/12/20 20:01 Atorvastatin 80 Mg Tab PO 80 mg HS SRINIVASA Administration Carvedilol 25 mg 09/12/20 09:00 09/13/20 08:46 Carvedilol 12.5 Mg Tab PO 25 mg BID SRINIVASA Administration Clopidogrel Bisulfate 75 mg 09/12/20 09:00 09/13/20 08:46 Clopidogrel 75 Mg Tab PO 75 mg DAILY SRINIVASA Administration Docusate Sodium 100 mg 09/12/20 09:00 09/13/20 08:45 Docusate 100 Mg Cap PO 100 mg BID SRINIVASA Administration Famotidine 20 mg 09/13/20 09:00 09/13/20 08:45 Famotidine 20 Mg Tab PO 20 mg DAILY SRINIVASA Administration Heparin Sodium (Porcine) 5,000 unit 09/13/20 08:00 09/13/20 08:45 Heparin Sodium,Porcine/Pf 5,000 Unit/0.5 Ml Syringe SQ 5,000 unit Q8HR SRINIVASA Administration Sodium Chloride 1,000 mls @ 100 mls/hr 09/11/20 23:15 09/13/20 12:27 Saline 0.9% IV 100 mls/hr .Q10H SRINIVASA Administration Insulin Detemir 80 unit 09/12/20 21:00 09/12/20 21:17 Insulin Detemir (Levemir) 100 Unit/Ml Syr SQ 25 unit HS SRINIVASA Administration Isosorbide Mononitrate 60 mg 09/12/20 09:00 09/13/20 08:45 Isosorbide Mononitrate Er 60 Mg Tab.Er.24h PO 60 mg DAILY SRINIVASA Administration Lisinopril 40 mg 09/12/20 09:00 09/13/20 08:46 Lisinopril 20 Mg Tab PO 40 mg DAILY SRINIVASA Administration Metoclopramide HCl 10 mg 09/11/20 23:16 Metoclopramide 10 Mg Tab PO ACHS PRN Nausea And Vomiting Montelukast Sodium 10 mg 09/12/20 21:00 09/12/20 20:01 Montelukast 10 Mg Tab PO 10 mg HS SRINIVASA Administration Pantoprazole Sodium 40 mg 09/12/20 07:30 09/13/20 06:03 Pantoprazole 40 Mg Tablet PO 40 mg [id number] SRINIVASA Administration Intake and Output 09/12/20 09/13/20 09/13/20 22:59 06:59 14:59 Intake Total 240 Output Total 250 300 Balance -10 -300 Intake: Oral 240 Output: Urine 250 300 Other: Voiding Method Diaper # Voids 1 1 Weight 76 kg 09/13/20 07:31 09/13/20 07:31
--- NOTE | 2020-09-13 16:25 | P.PN ---
Subjective Progress Note Date: 09/13/20 The patient seen at bedside and she feels about the same today compared to her initial presentation. Denies of any worsening of her neurological condition. She denies of any new neurological complaint. Objective - Vital Signs Vital signs: Vital Signs Temp 98.5 F 09/13/20 08:00 Pulse 53 L 09/13/20 12:00 Resp 16 09/13/20 12:00 BP 166/92 09/13/20 12:00 Pulse Ox 95 09/13/20 12:00 Intake & Output 09/12/20 09/13/20 09/13/20 18:59 06:59 18:59 Intake Total 680 240 300 Output Total 250 300 Balance 430 -60 300 Weight 76 kg Intake: Intake, IV Titration 200 Amount Sodium Chloride 0.9% 1, 200 000 ml @ 100 mls/hr IV . Q10H SRINIVASA Rx#:[id number] Oral 480 240 300 Output: Urine 250 300 Other: Voiding Method Diaper Diaper # Voids 1 1 - Exam GENERAL: The patient is lying in bed and is not in acute distress. NEUROLOGICAL: Higher mental function: The patient is awake, alert, oriented to self, place and time. Patient is following commands. No aphasia and no neglect. Cranial nerves: The pupils are round, equal and reactive to light and accommodation. Visual jj are full to confrontation throughout. Extraocular movement is intact no nystagmus is noted. Facial sensation is normal to touch throughout. The facial strength is mild left lower facial weakness. Hearing is normal bilaterally to hand rub. Tongue is midline and moved [id number] without any difficulty. No dysarthria is noted. Shoulder shrug is normal bilaterally. Motor: Gait is deferred. The strength is left arm is 4- while left hand audograph operator is 3-4. Left hip flexion is 4+ to 5-, knee flexions is 5-. Otherwise 5/5 throughout. Slight increase tone in left hand. Cerebellum: Normal finger to nose bilaterally. Sensation: Sensation is normal to touch throughout. Reflexes (right/left): 3+ over the left side (except at left triceps 2+). Otherwise 2+ throughout. Plantars is upgoing over the left and mute over the right. LABS/IMAGING: Carotid duplex was reported as no hemodynamic significant stenosis of the proximal internal carotid artery on the right by Doppler criteria, and in direct measurement of carotid stenosis. Right carotid artery stent is noted incidentally. There is elevated velocity in the proximal internal carotid artery on the left with borderline ICA to CCA elevated ratio but no elevation in end diastolic velocity with technical consideration as described. MR the brain is reported as subacute infarct along the distribution of right anterior cerebral artery. Age-related changes of atrophy and chronic small vessel ischemia. 2-D echo was reported as moderate concentric left ventricular hypertrophy. Ejection fraction of 55-60%. Left atrium is moderately dilated. Lipid panel: Triglyceride 194, cholesterol of 205, LDL is 134 and HDL of 32. Hemoglobin A1c is 6.9. - Labs CBC & Chem 7: 09/13/20 07:31 09/13/20 07:31 Labs: Abnormal Lab Results - Last 24 Hours (Table) 09/12/20 09/12/20 09/12/20 Range/Units 06:16 16:48 20:29 RBC (3.80-5.40) m/uL Hgb (11.4-16.0) gm/dL Hct (34.0-46.0) % Chloride (98-107) mmol/L Carbon Dioxide (22-30) mmol/L BUN (7-17) mg/dL Creatinine (0.52-1.04) mg/dL POC Glucose (mg/dL) 162 H 162 H (75-99) mg/dL Hemoglobin A1c 6.9 H (4.0-6.0) % 09/13/20 09/13/20 09/13/20 Range/Units 07:31 07:31 11:34 RBC 3.35 L (3.80-5.40) m/uL Hgb 9.9 L (11.4-16.0) gm/dL Hct 28.7 L (34.0-46.0) % Chloride 111 H (98-107) mmol/L Carbon Dioxide 21 L (22-30) mmol/L BUN 31 H (7-17) mg/dL Creatinine 1.24 H (0.52-1.04) mg/dL POC Glucose (mg/dL) 104 H (75-99) mg/dL Hemoglobin A1c (4.0-6.0) % Assessment and Plan Assessment: Acute to subacute infarct (along the distribution of right anterior cerebral artery. With symptoms of Worsening left-sided weakness). Seems embolic. Acute on chronic kidney insufficiency--improving. History of right MCA with residual left-sided weakness History of Right ICA stenosis status post stenting Reported left ICA stenosis according to the patient that was notified by her malariologist (but on our carotid duplex does not reveal stenosis). History of TIA with left-sided weakness in the March 2020 Chronic lower back pain History of myocardial infarction status post stenting and CABG Medication Non-compliance (ran out of ASA for one month). Plan: Continue aspirin 81mg daily and Plavix 75 mg daily (she ran out of ASA for the last one month). The patient to continue dual antiplatelets which will help with secondary stroke prophylaxis and beneficial for carotid stenosis. Continue Lipitor 80mg qhs for secondary stroke prophylaxis. On continuous cardiac monitoring and every 4 hours neuro checks PT, OT and PUTTY TINTER MAKER are consulted. Consulted cardiology for ROGER especially with repeated stroke. Also placed order for event monitor. We'll defer the rest of the medical management to the primary team. The patient needs to follow-up with a neurologist within 1-2 weeks as outpatient and her malariologist. The plan is discussed with the nurse. Brenton Lai MD Neuro-Hospitalist Time with Patient: Less than 30
[2020-09-13 16:37] LABS: Glucose,Whole Blood 143 mg/dL (75-99)
[2020-09-13 19:56] LABS: Glucose,Whole Blood 126 mg/dL (75-99)
[2020-09-13] MEDS: MONTELUKAST 10 MG TAB PO SCH (20:55)
[2020-09-13] MEDS: ATORVASTATIN 80 MG TAB PO SCH (20:56)
[2020-09-13] MEDS: INSULIN DETEMIR (LEVEMIR) 100 UNIT/ML SYR SQ SCH (21:06)
[2020-09-14 06:10] LABS: Glucose,Whole Blood 122 mg/dL (75-99)
[2020-09-14] MEDS: PANTOPRAZOLE 40 MG TABLET PO SCH (06:37)
[2020-09-14] MEDS: ASPIRIN 81 MG PO SCH (08:11)
[2020-09-14] MEDS: HEPARIN SODIUM,PORCINE/PF 5,000 UNIT/0.5 ML SYRINGE SQ SCH ×2 (08:11→16:57)
[2020-09-14] MEDS: amLODIPine 10 MG TAB PO SCH (08:12)
[2020-09-14] MEDS: carvediloL 12.5 MG TAB PO SCH ×2 (08:12→20:43)
[2020-09-14] MEDS: ISOSORBIDE MONONITRATE ER 60 MG TAB.ER.24H PO SCH (08:12)
[2020-09-14] MEDS: lisinopriL 20 MG TAB PO SCH (08:12)
[2020-09-14] MEDS: DOCUSATE 100 MG CAP PO SCH ×2 (08:12→20:42)
[2020-09-14] MEDS: hydrALAZINE HCL 50 MG TAB PO SCH (08:12)
[2020-09-14] MEDS: FAMOTIDINE 20 MG TAB PO SCH (08:12)
[2020-09-14] MEDS: CLOPIDOGREL 75 MG TAB PO SCH (08:12)
[2020-09-14] MEDS ORDERED: NITROGLYCERIN SL TABS 0.4 MG TAB SUBLINGUAL PRN (11:27)
[2020-09-14] MEDS ORDERED: levETIRAcetam IV 1,000 MG in SALINE 1 100ML.BAG IVPB STA (11:31)
[2020-09-14] MEDS: SODIUM CHLORIDE 0.9% 1,000 ML IV SCH ×3 (11:39→20:44)
[2020-09-14 12:07] LABS: Glucose,Whole Blood 143 mg/dL (75-99)
--- NOTE | 2020-09-14 12:07 | CT ---
EXAMINATION TYPE: CT brain wo con DATE OF EXAM: 09/14/2020 COMPARISON: 03/30/2020 HISTORY: Increased left sided weakness: Prior CVA CT DLP: 1194.[address] of the brain was performed. There is a remote right MCA territory insults however the area of decreased attenuation appears to be larger in size posteriorly. There is also a new area of decreased attenuation involving the high rig ht frontal lobe felt to reflect acute CVA. The ventricles, basal cisterns and sulci overlying the cerebral convexities demonstrate mild enlargem ent. There is no evidence for intracranial hemorrhage or sulcal effacement. There is decreased attenuation about the periventricular white matter and deep white matter of both c erebral hemispheres, compatible with chronic small vessel ischemia. Differential diagnosis does inclu de demyelination. No mass effects are seen.No midline shift. Osseous calvarium is intact. If symptoms persist consider MRI. IMPRESSION: 1. New area of moderate sized decreased attenuation involving the high right frontal lobe compatible with acute CVA. 2. Remote right MCA territory insult which appears slightly greater in size posteriorly relative to t he prior study. 3. No evidence for hemorrhagic transformation.
[2020-09-14 16:55] LABS: Glucose,Whole Blood 155 mg/dL (75-99)
--- NOTE | 2020-09-14 17:08 | P.PN ---
Subjective Progress Note Date: 09/14/20 Upon seeing the patient today in the morning the she stated that the she feels is feeling well. According to the patient nurse she's moving her left arm better today compared to yesterday as well as the clinical case manager agrees that that she's arm move better. Objective - Vital Signs Vital signs: Vital Signs Temp 98.5 F 09/14/20 08:00 Pulse 53 L 09/14/20 12:00 Resp 16 09/14/20 14:00 BP 158/73 09/14/20 12:00 Pulse Ox 97 09/14/20 12:00 Intake & Output 09/13/20 09/14/20 09/14/20 18:59 06:59 18:59 Intake Total 1580 Output Total 800 400 Balance 1580 -800 -400 Weight 57.5 kg Intake: Intake, IV Titration 800 Amount Sodium Chloride 0.9% 1, 800 000 ml @ 100 mls/hr IV . Q10H SRINIVASA Rx#:[id number] Oral 780 Output: Urine 800 400 Other: Voiding Method Diaper Diaper Diaper External Catheter External Catheter # Voids 1 1 - Exam GENERAL: The patient is lying in bed and is not in acute distress. NEUROLOGICAL: Higher mental function: The patient is awake, alert, oriented to self, place and time. Patient is following commands. No aphasia and no neglect. Cranial nerves: The pupils are round, equal and reactive to light and accommodation. Visual jj are full to confrontation throughout. Extraocular movement is intact no nystagmus is noted. Facial sensation is normal to touch throughout. The facial strength is mild to moderate left lower facial weakness. Tongue is midline and moved [id number] without any difficulty. No dysarthria is noted. Motor: Gait is deferred. The strength is over the left upper extremity was 0/5 and had increased tone especially mostly over the left hand (patient stated that the she has chronic left upper extremity weakness and as a result of her current stroke she felt was worse ). Left lower extremity left knee extension was 3/5 hip was about 2/5 otherwise 0/5 over the left lower extremity. Otherwise the right upper and lower extremity was 5 over 5. Sensation: Sensation is normal to touch throughout. Reflexes (right/left): 3+ over the left side (except at left triceps 2+). Otherwise 2+ throughout. Plantars is upgoing over the left and mute over the right. Examined at 11am (per nurse was moving the left sided above gravity last at 10am). LABS/IMAGING: Carotid duplex was reported as no hemodynamic significant stenosis of the proximal internal carotid artery on the right by Doppler criteria, and in direct measurement of carotid stenosis. Right carotid artery stent is noted incidentally. There is elevated velocity in the proximal internal carotid artery on the left with borderline ICA to CCA elevated ratio but no elevation in end diastolic velocity with technical consideration as described. MR the brain is reported as subacute infarct along the distribution of right anterior cerebral artery. Age-related changes of atrophy and chronic small vessel ischemia. 2-D echo was reported as moderate concentric left ventricular hypertrophy. Ejection fraction of 55-60%. Left atrium is moderately dilated. Lipid panel: Triglyceride 194, cholesterol of 205, LDL is 134 and HDL of 32. Hemoglobin A1c is 6.9. - Labs CBC & Chem 7: 09/13/20 07:31 09/13/20 07:31 Labs: Abnormal Lab Results - Last 24 Hours (Table) 09/13/20 09/14/20 09/14/20 Range/Units 19:55 06:09 12:06 POC Glucose (mg/dL) 126 H 122 H 143 H (75-99) mg/dL 09/14/20 Range/Units 16:54 POC Glucose (mg/dL) 155 H (75-99) mg/dL Assessment and Plan Assessment: On today's examination has worsening of left sided weakness and per nurse last normal was 1 hour ago. Rule out new stroke vs seizure as result of her stroke. Acute to subacute infarct (along the distribution of right anterior cerebral artery. With symptoms of Worsening left-sided weakness). Seems embolic. Acute on chronic kidney insufficiency--improving. History of right MCA with residual left-sided weakness History of Right ICA stenosis status post stenting Reported left ICA stenosis according to the patient that was notified by her director data analytics (but on our carotid duplex does not reveal stenosis). History of TIA with left-sided weakness in the March 2020 Chronic lower back pain History of myocardial infarction status post stenting and CABG Medication Non-compliance (ran out of ASA for one month). Plan: Continue aspirin 81mg daily and Plavix 75 mg daily (she ran out of ASA for the last one month). The patient to continue dual antiplatelets which will help with secondary stroke prophylaxis and beneficial for carotid stenosis. Continue Lipitor 80mg qhs for secondary stroke prophylaxis. On continuous cardiac monitoring and every 4 hours neuro checks PT, OT and INSECTICIDE SUPERVISOR are consulted. Consulted cardiology for ROGER especially with repeated stroke (per nurse that will be done tomorrow). Also placed order for event monitor. I started the patient on Keppra 500 mg every 12 hours for concern of the seizure because of her fluctuation of her symptoms especially with a stroke that increased risk of seizure. I also loaded the patient with Keppra 1000 mg once. I ordered a stat CT of the scan. We'll defer the rest of the medical management to the primary team. The patient needs to follow-up with a neurologist within 1-2 weeks as outpatient and her director data analytics. The plan is discussed with the nurse. UPDATE: CT of the head is reported as new area of moderate size decreased attenuation involving the high right frontal lobe compatible with acute CVA. Remote right MCA territory insult which appears slightly greater in size and posture relative to the prior study. No evidence for hemorrhagic transformation. I personally reviewed the CT of the head and I don't think this is a new stroke over the right frontal this is more subacute since especially was seen on the MRI the brain. Also within 10-15 minutes after seeing the patient, the nurse notified me the patient is moving her left upper and lower extremity at better and moving above gravity. I personally saw the patient later and she was moving the left upper and lower extremity above gravity. She continued to have weakness over the left side but no drift and had left facial droop. Brenton Lai MD Neuro-Hospitalist Time with Patient: Greater than 30
--- NOTE | 2020-09-14 17:55 | EEG ---
ELECTROENCEPHALOGRAM REPORT DATE OF SERVICE: 09/14/2020. CLINICAL HISTORY: This is a 69-year-old woman with a history of a stroke over the right MCA and AISLINN territory, who had a fluctuation of the left-sided weakness. This video EEG is obtained to evaluate for seizure and epileptiform activity. RELEVANT MEDICATION: Patient is not on any antiepileptic drug. EEG TYPE: A routine 21-channel EEG performed with video using the 10/20 electrode system. DESCRIPTION: Wakefulness is obtained. During wakefulness, the background over the left hemisphere consists of low to moderate voltage, wall dominated of 8.5 hertz activity. While the right hemisphere, the background consists of poorly modulated and poorly sustained, 7- 8 hertz activity. There is no physiological sleep architecture seen. There is continuous moderate voltage delta/theta slowing over the right fronto/temporoparietal region. Interictal, ictal is none. ACTIVATION PROCEDURE: Photic stimulation did not evoke a posterior driving response. There is no abnormality during photic stimulation. Hyperventilation is not performed. CLINICAL INTERPRETATION: This is an abnormal routine EEG. There is asymmetrical background with mild slowing over the right suggestive of mild encephalopathy.While the left, the background is normal. The focal slowing over the right frontal/temporal/parietal region is consistent with the patient's history of stroke. There are no epileptiform discharges or seizure on the EEG. Clinical correlation is recommended. MERRY / AVELINO: [id number] / MTDD
--- NOTE | 2020-09-14 18:40 | HP ---
HISTORY AND PHYSICAL HISTORY OF PRESENT ILLNESS: This lady was admitted in my absence with right-sided CVA and a dense left-sided hemiparesis. Speech is preserved. She has no complaints of vision issues. The review of systems is unremarkable at this time. PHYSICAL EXAM: Includes a left dense hemiparesis. Right-sided strength is normal. Chest is clear. Cardiac exam is normal. Abdomen is soft and nontender. She is admitted to the hospital with diagnoses: 1. Right-sided cerebrovascular accident with left hemiparesis. 2. History of hypertension. PLAN: PT and OT as well as working on a discharge plan. MMODL / IJN: [id number] /
--- NOTE | 2020-09-14 18:54 | PN ---
PROGRESS NOTE DATE OF SERVICE: 09/13/2020 CHIEF COMPLAINT: Right-sided CVA. HISTORY OF PRESENT ILLNESS: This lady is fairly stable and she is oriented and alert. Speech is preserved. Studies reveal that there is no carotid stenosis. PHYSICAL EXAMINATION: Her chest is clear. The cardiac exam is normal. The abdomen is soft, nontender. She remains densely hemiparetic on the left. IMPRESSION: 1. Right-sided cerebrovascular accident with left hemiparesis. 2. History of hypertension. PLAN: PT, OT and speech therapy while working on a discharge plan. MMODL / IJN: [id number] /
--- NOTE | 2020-09-14 19:03 | PN ---
PROGRESS NOTE DATE OF SERVICE: 09/14/2020 CHIEF COMPLAINT: Right-sided CVA with left hemiparesis. HISTORY OF PRESENT ILLNESS: This lady remains in good spirits and still has very little to no movement on the left side. She has no headache. PHYSICAL EXAMINATION: Chest is clear. Cardiac exam is normal. Abdomen is soft and nontender. IMPRESSION: Right-sided cerebrovascular accident with left hemiparesis. PLAN: Continue ST, OT and PT and make arrangements for jail placement for rehab. MMODL / IJN: [id number] /
[2020-09-14 20:06] LABS: Glucose,Whole Blood 112 mg/dL (75-99)
[2020-09-14] MEDS: HYDROcodone/APAP 10-325MG 1 EACH TAB PO PRN (20:42)
[2020-09-14] MEDS: levETIRAcetam 500 MG TAB PO SCH (20:43)
[2020-09-14] MEDS: ATORVASTATIN 80 MG TAB PO SCH (20:43)
[2020-09-14] MEDS: MONTELUKAST 10 MG TAB PO SCH (20:43)
[2020-09-15] MEDS: INSULIN DETEMIR (LEVEMIR) 100 UNIT/ML SYR SQ SCH ×2 (02:01→20:30)
[2020-09-15] MEDS: HEPARIN SODIUM,PORCINE/PF 5,000 UNIT/0.5 ML SYRINGE SQ SCH ×4 (03:08→15:22)
[2020-09-15 06:11] LABS: Glucose,Whole Blood 118 mg/dL (75-99)
[2020-09-15] MEDS: SODIUM CHLORIDE 0.9% 1,000 ML IV SCH ×2 (06:13→18:16)
[2020-09-15] MEDS: PANTOPRAZOLE 40 MG TABLET PO SCH (06:14)
[2020-09-15] MEDS ORDERED: ATORVASTATIN 80 MG TAB PO SCH (09:00)
[2020-09-15] MEDS: levETIRAcetam 500 MG TAB PO SCH ×2 (09:44→12:49)
[2020-09-15] MEDS: lisinopriL 20 MG TAB PO SCH ×2 (09:44→12:49)
[2020-09-15] MEDS: CLOPIDOGREL 75 MG TAB PO SCH ×2 (09:44→12:49)
[2020-09-15] MEDS: ISOSORBIDE MONONITRATE ER 60 MG TAB.ER.24H PO SCH ×2 (09:44→12:49)
[2020-09-15] MEDS: ASPIRIN 81 MG PO SCH ×2 (09:44→12:48)
[2020-09-15] MEDS: carvediloL 12.5 MG TAB PO SCH ×3 (09:45→20:36)
[2020-09-15] MEDS: amLODIPine 10 MG TAB PO SCH ×2 (09:45→12:48)
[2020-09-15] MEDS: DOCUSATE 100 MG CAP PO SCH ×3 (09:45→20:35)
[2020-09-15] MEDS: hydrALAZINE HCL 50 MG TAB PO SCH ×2 (09:45→12:49)
[2020-09-15] MEDS ORDERED: fentaNYL (PF) 50 MCG/ML 2 ML AMP ONE (09:56)
[2020-09-15] MEDS ORDERED: IV FLUID CONTINUATION 900 ML IV ONE (10:19)
[2020-09-15] MEDS ORDERED: BENZOCAINE SPRAY 1 CAN TOPICAL ONE (10:31)
[2020-09-15] MEDS ORDERED: MIDAZOLAM 2 MG/2 ML VIAL IV ONE (10:31)
[2020-09-15] MEDS ORDERED: fentaNYL (PF) 50 MCG/ML 2 ML AMP IV ONE (10:34)
--- NOTE | 2020-09-15 11:28 | P.PN ---
Progress Note - Text Progress Note Date: 09/15/20 ROGER canceled yesterday as patient was having increased left upper extremity weakness. Patient states the left upper extremity weakness lasted for a couple hours yesterday and this morning she feels back to her baseline. Patient will be rescheduled for ROGER today with Dr. Ramos
[2020-09-15 12:00] LABS: Glucose,Whole Blood 104 mg/dL (75-99)
--- NOTE | 2020-09-15 12:13 | ECHOT ---
TRANSESOPHAGEAL ECHOCARDIOGRAM INDICATIONS: CVA rule out cardiac source of thromboembolic phenomenon. PROCEDURE NOTE: After obtaining informed consent, transesophageal echocardiogram is performed in left lateral position using an Omni plane probe. Local and IV sedation were obtained using Xylocaine spray, 2 mg of Versed and 50 mcg of fentanyl. The patient tolerated the procedure well without any obvious immediate complications. Patient received moderate conscious sedation. Total sedation time was 7 minutes. 2D color Doppler spectral analysis has been performed and saline contrast study was performed. FINDINGS: 1. There is no intracardiac thrombus within the left atrial appendage, left atrium, right atrium, right ventricle. 2. Left ventricle has normal size and systolic function. 3. There is no evidence of lvbk-xe-tceju shunt by color-flow Doppler or scydo-bi-kenq shunt by agitated saline contrast study. 4. Mitral valve is anatomically normal. There is no evidence of mitral stenosis or regurgitation. 5. Tricuspid valve appears normal. 6. Aortic valve is a 3-leaflet valve. There is no evidence of aortic stenosis or regurgitation. Aorta shows gyrz-ap-pdxpzris atherosclerotic changes. CONCLUSIONS: 1. Normal LV systolic function. 2. No intracardiac thrombus. 3. No evidence of shunting across the interatrial septum. MMODL / IJN: [id number] /
[2020-09-15] MEDS ORDERED: TICAGRELOR 90 MG TAB PO STA (15:09)
[2020-09-15 16:11] LABS: Calcium 8.8 mg/dL (8.4-10.2); Potassium 4.3 mmol/L (3.5-5.1)
[2020-09-15] MEDS ORDERED: levETIRAcetam IV 500 MG in SODIUM CHLORIDE 0.9% 100 ML IVPB STA (16:25)
[2020-09-15 16:52] LABS: Glucose,Whole Blood 121 mg/dL (75-99)
[2020-09-15 18:26] LABS: Calcium 8.6 mg/dL (8.4-10.2); Potassium 4.3 mmol/L (3.5-5.1)
--- NOTE | 2020-09-15 18:27 | P.PN ---
Subjective Progress Note Date: 09/15/20 Patient was seen at bedside and she stated that she is a doing that better today compared to yesterday. Denies of any focal weakness numbness or any neurological problems. Objective - Vital Signs Vital signs: Vital Signs Temp 98.5 F 09/15/20 14:55 Pulse 55 L 09/15/20 14:55 Resp 18 09/15/20 14:55 BP 154/72 09/15/20 14:55 Pulse Ox 97 09/15/20 14:55 Intake & Output 09/14/20 09/15/20 09/15/20 18:59 06:59 18:59 Intake Total 290 Output Total 700 300 Balance -700 -10 Weight 57 kg Intake: IV 50 Oral 240 Output: Urine 700 300 Other: Voiding Method Diaper Diaper External Catheter External Catheter # Voids 2 3 1 # Bowel Movements 1 2 1 - Exam GENERAL: The patient is lying in bed and is not in acute distress. NEUROLOGICAL: Higher mental function: The patient is awake, alert, oriented to self, place and time. Patient is following commands. No aphasia and no neglect. Cranial nerves: The pupils are round, equal and reactive to light and accommodation. Visual jj are full to confrontation throughout. Extraocular movement is intact no nystagmus is noted. Facial sensation is normal to touch throughout. The facial strength is mild to moderate left lower facial weakness. Tongue is midline and moved [id number] without any difficulty. No dysarthria is noted. Motor: Gait is deferred. The strength is over the left upper extremity was 4/5 and lower extremity is 4+ to 5-. Otherwise 5/5 over the right. Has increased tone over the left hand. Sensation: Sensation is normal to touch throughout. Reflexes (right/left): 3+ over the left side (except at left triceps 2+). Othe rwise 2+ throughout. Plantars is upgoing over the left and mute over the right. LABS/IMAGING: Carotid duplex was reported as no hemodynamic significant stenosis of the proximal internal carotid artery on the right by Doppler criteria, and in direct measurement of carotid stenosis. Right carotid artery stent is noted incidentally. There is elevated velocity in the proximal internal carotid artery on the left with borderline ICA to CCA elevated ratio but no elevation in end diastolic velocity with technical consideration as described. MR the brain is reported as subacute infarct along the distribution of right anterior cerebral artery. Age-related changes of atrophy and chronic small vessel ischemia. 2-D echo was reported as moderate concentric left ventricular hypertrophy. Ejection fraction of 55-60%. Left atrium is moderately dilated. Lipid panel: Triglyceride 194, cholesterol of 205, LDL is 134 and HDL of 32. Hemoglobin A1c is 6.9. CT of the head on 09/14/2020 is done because of the patient's fluctuation of symptoms: Is reported as new area of moderate size decreased attenuation involving the high right frontal lobe compatible with acute CVA. Remote right MCA territory insult which appears slightly greater in size and posture relative to the prior study. No evidence for hemorrhagic transformation. I personally reviewed the CT of the head and I don't think this is a new stroke over the right frontal this is more subacute since especially was seen on the MRI the brain. EEG on 09/14/2020. Abnormal routine EEG. There is asymmetrical background with mild slowing over the right suggestive of mild encephalopathy while the left the background is normal. The focal slowing over the right frontal/temporal/parietal regions consistent with the patient history of stroke. They are no epileptiform discharges or seizure on the EEG. Clinical correlation is recommended. - Labs CBC & Chem 7: 09/13/20 07:31 09/15/20 15:39 Labs: Abnormal Lab Results - Last 24 Hours (Table) 09/14/20 09/15/20 09/15/20 Range/Units 20:04 06:09 11:49 Chloride (98-107) mmol/L Carbon Dioxide (22-30) mmol/L BUN (7-17) mg/dL Creatinine (0.52-1.04) mg/dL Glucose (74-99) mg/dL POC Glucose (mg/dL) 112 H 118 H 104 H (75-99) mg/dL 09/15/20 09/15/20 Range/Units 15:39 16:50 Chloride 109 H (98-107) mmol/L Carbon Dioxide 21 L (22-30) mmol/L BUN 29 H (7-17) mg/dL Creatinine 1.34 H (0.52-1.04) mg/dL Glucose 152 H (74-99) mg/dL POC Glucose (mg/dL) 121 H (75-99) mg/dL Assessment and Plan Assessment: Acute to subacute infarct (along the distribution of right anterior cerebral artery. With symptoms of Worsening left-sided weakness). Seems embolic. Had brief fluctuation (worsening) of symptoms on the left side on 09/14/2020 and it was felt due to seizure. Acute on chronic kidney insufficiency--improving. 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 History of TIA with left-sided weakness in the March 2020 Chronic lower back pain History of myocardial infarction status post stenting and CABG Medication Non-compliance (ran out of ASA for one month). Plan: Continue aspirin 81mg daily and Plavix 75 mg daily (she ran out of ASA for the last one month). The patient to continue dual antiplatelets which will help with secondary stroke prophylaxis and beneficial for carotid stenosis. Continue Lipitor 80mg qhs for secondary stroke prophylaxis. On continuous cardiac monitoring and every 4 hours neuro checks PT, OT and BUDGET COORDINATOR are consulted. ROGER: It is reported as normal left ventricle systolic function. No intracardiac thrombus. No evidence of shunting across the intra-arterial septum. On event monitor. On Keppra 500 mg every 12 hours for concern of the seizure because of her fluctuation of her symptoms especially with a stroke that increased risk of seizure. We'll defer the rest of the medical management to the primary team. The patient needs to follow-up with a neurologist within 1-2 weeks as outpatient. The plan is discussed with the nurse. UPDATE: Later in the afternoon around 2:50 PM today upon the patient's nurse examining the patient the patient also had worsening of left facial weakness and left- sided weakness. She stated that the last normal she saw her was about 50 minutes ago. And within a few minutes her symptoms resolved. There is still concern for seizure especially with large area of stroke but cannot rule out TIA. Therefore I loaded the patient with Keppra 500 mg and increased the Keppra from 500 one tablet twice a day to 750 in the every [address] angiography of the head and neck. I stopped the Plavix and started the patient on Brilinta with loading dose of 180mg once then 90mg 1 tab bid. If no further fluctuation for 24 hours and the patient is clear from a neurologi theresa standpoint and the patient needs to follow-up with a neurologist within 1-2 weeks as an outpatient. Brenton Lai MD Neuro-Hospitalist Time with Patient: Less than 30
--- NOTE | 2020-09-15 19:42 | PN ---
PROGRESS NOTE CHIEF COMPLAINT: Right-sided CVA with left hemiparesis. HISTORY OF PRESENT ILLNESS: This lady is fairly stable, doing well. She is awake and alert and speech is normal. She remains densely hemiparetic on the left. PHYSICAL EXAMINATION: Chest is clear. Cardiac exam is normal. Abdomen is soft and nontender. Extremities are normal and she remains hemiparetic on the left. IMPRESSION: Right-sided CVA with left hemiparesis. PLAN: Continue with physical therapy, rehab, and discharge plan. She seems to think that she will be able to go home, but this will not be possible. She does not have the means to help her at home with her new stroke symptoms. MMODL / IJN: [id number] /
[2020-09-15 20:28] LABS: Glucose,Whole Blood 117 mg/dL (75-99)
[2020-09-15] MEDS: HYDROcodone/APAP 10-325MG 1 EACH TAB PO PRN (20:35)
[2020-09-15] MEDS: NICOTINE 21MG/24HR PATCH TRANSDERM SCH (20:35)
[2020-09-15] MEDS: ATORVASTATIN 80 MG TAB PO SCH (20:36)
[2020-09-15] MEDS: MONTELUKAST 10 MG TAB PO SCH (20:36)
[2020-09-16] MEDS: HEPARIN SODIUM,PORCINE/PF 5,000 UNIT/0.5 ML SYRINGE SQ SCH ×4 (00:35→23:12)
[2020-09-16] MEDS: SODIUM CHLORIDE 0.9% 1,000 ML IV SCH ×3 (05:06→20:44)
[2020-09-16] MEDS: PANTOPRAZOLE 40 MG TABLET PO SCH ×2 (05:37→20:47)
[2020-09-16] MEDS: HYDROcodone/APAP 10-325MG 1 EACH TAB PO PRN ×2 (05:37→15:49)
[2020-09-16 06:04] LABS: Glucose,Whole Blood 122 mg/dL (75-99)
[2020-09-16] MEDS: DOCUSATE 100 MG CAP PO SCH ×2 (08:42→20:41)
[2020-09-16] MEDS: amLODIPine 10 MG TAB PO SCH (08:42)
[2020-09-16] MEDS: carvediloL 12.5 MG TAB PO SCH ×2 (08:42→20:40)
[2020-09-16] MEDS: ASPIRIN 81 MG PO SCH (08:42)
[2020-09-16] MEDS: hydrALAZINE HCL 50 MG TAB PO SCH (08:42)
[2020-09-16] MEDS: ISOSORBIDE MONONITRATE ER 60 MG TAB.ER.24H PO SCH (08:42)
[2020-09-16] MEDS: lisinopriL 20 MG TAB PO SCH (08:43)
[2020-09-16] MEDS: NICOTINE 21MG/24HR PATCH TRANSDERM SCH (08:43)
[2020-09-16] MEDS: TICAGRELOR 90 MG TAB PO SCH ×2 (08:43→20:40)
[2020-09-16 09:11] LABS: Basophils % (A) 0 %; Eosinophils # (A) 0.2 k/uL (0-0.7); Eosinophils % (A) 2 %; HCT 31.3 % (34.0-46.0); HGB 10.2 gm/dL (11.4-16.0); Lymphocytes # (A) 1.7 k/uL (1.0-4.8); Lymphocytes % (A) 22 %; MCH 27.9 pg (25.0-35.0); MCHC 32.7 g/dL (31.0-37.0); MCV 85.3 fL (80.0-100.0); Mean Platelet Volume 7.8; Monocytes # (A) 0.4 k/uL (0-1.0); Monocytes % (A) 4 %; Neutrophils # (A) 5.6 k/uL (1.3-7.7); Neutrophils % (A) 70 %; Platelet Count 263 k/uL (150-450); RBC 3.66 m/uL (3.80-5.40); RDW 14.4 % (11.5-15.5); WBC 7.9 k/uL (3.8-10.6)
[2020-09-16 09:32] LABS: Albumin 3.8 g/dL (3.5-5.0); Calcium 9.3 mg/dL (8.4-10.2); Potassium 4.3 mmol/L (3.5-5.1); Total Bilirubin 0.3 mg/dL (0.2-1.3); Total Protein 6.4 g/dL (6.3-8.2)
[2020-09-16 11:07] VITALS: BMI 27.2
[2020-09-16] MEDS: LACOSAMIDE 50 MG TABLET PO SCH ×2 (11:35→20:40)
[2020-09-16 11:59] LABS: Glucose,Whole Blood 135 mg/dL (75-99)
--- NOTE | 2020-09-16 12:11 | P.PN ---
Subjective Progress Note Date: 09/16/20 Patient seen at bedside and the she stated that the she was doing well early in the morning and then she had some mild fluctuation of her left-sided strength not too long ago. He denies of any new numbness. Denies of any visual disturbance, difficulty swallowing or difficulty getting her words out that. She's been having this fluctuation of left-sided weakness for last a couple days. Objective - Vital Signs Vital signs: Vital Signs Temp 98.6 F 09/16/20 11:31 Pulse 50 L 09/16/20 11:31 Resp 20 09/16/20 11:31 BP 141/64 09/16/20 11:31 Pulse Ox 98 09/16/20 11:31 Intake & Output 09/15/20 09/16/20 09/16/20 18:59 06:59 18:59 Intake Total 290 1320 0 Output Total 300 800 700 Balance -10 520 -700 Weight 67.5 kg 67.5 kg Intake: IV 50 Intake, IV Titration 600 Amount Sodium Chloride 0.9% 1, 600 000 ml @ 100 mls/hr IV . Q10H SRINIVASA Rx#:[id number] Oral 240 720 0 Output: Urine 300 800 700 Other: Voiding Method Diaper Diaper External Catheter External Catheter # Voids 1 # Bowel Movements 1 - Exam GENERAL: The patient is lying in bed and is not in acute distress. NEUROLOGICAL: Higher mental function: The patient is awake, alert, oriented to self, place and time. Patient is following commands. No aphasia and no neglect. Cranial nerves: The pupils are round, equal and reactive to light and accommodation. Visual jj are full to confrontation throughout. Extraocular movement is intact no nystagmus is noted. Facial sensation is normal to touch throughout. The facial strength is mild to moderate left lower facial weakness. Tongue is midline and moved [id number] without any difficulty. No dysarthria is noted. Motor: Gait is deferred. The strength is over the left upper extremity is 0/5. Otherwise 5/5 over the right. Has increased tone associated over entire left upper side (upper > lower). Sensation: Sensation is normal to touch throughout. Reflexes (right/left): 3+ over the left side (except at left triceps 2+). Otherwise 2+ throughout. Plantars is upgoing over the left and mute over the right. LABS/IMAGING: * Carotid duplex was reported as no hemodynamic significant stenosis of the proximal internal carotid artery on the right by Doppler criteria, and in direct measurement of carotid stenosis. Right carotid artery stent is noted incidentally. There is elevated velocity in the proximal internal carotid a rtery on the left with borderline ICA to CCA elevated ratio but no elevation in end diastolic velocity with technical consideration as described. * MR the brain is reported as subacute infarct along the distribution of right anterior cerebral artery. Age-related changes of atrophy and chronic small vessel ischemia. * 2-D echo was reported as moderate concentric left ventricular hypertrophy. Ejection fraction of 55-60%. Left atrium is moderately dilated. * Lipid panel: Triglyceride 194, cholesterol of 205, LDL is 134 and HDL of 32. * Hemoglobin A1c is 6.9. * CT of the head on 09/14/2020 is done because of the patient's fluctuation of symptoms: Is reported as new area of moderate size decreased attenuation involving the high right frontal lobe compatible with acute CVA. Remote right MCA territory insult which appears slightly greater in size and posture relative to the prior study. No evidence for hemorrhagic transformation. I personally reviewed the CT of the head and I don't think this is a new stroke over the right frontal this is more subacute since especially was seen on the MRI the brain. * EEG on 09/14/2020. Abnormal routine EEG. There is asymmetrical background with mild slowing over the right suggestive of mild encephalopathy while the left the background is normal. The focal slowing over the right frontal/temporal/parietal regions consistent with the patient history of stroke. They are no epileptiform discharges or seizure on the EEG. Clinical correlation is recommended. * ROGER: It is reported as normal left ventricle systolic function. No intracardiac thrombus. No evidence of shunting across the intra-arterial septum. - Labs CBC & Chem 7: 09/16/20 07:43 09/16/20 07:43 Labs: Abnormal Lab Results - Last 24 Hours (Table) 09/15/20 09/15/20 09/15/20 Range/Units 15:39 16:50 17:55 RBC (3.80-5.40) m/uL Hgb (11.4-16.0) gm/dL Hct (34.0-46.0) % Chloride 109 H 110 H (98-107) mmol/L Carbon Dioxide 21 L 19 L (22-30) mmol/L BUN 29 H 30 H (7-17) mg/dL Creatinine 1.34 H 1.33 H (0.52-1.04) mg/dL Glucose 152 H 104 H (74-99) mg/dL POC Glucose (mg/dL) 121 H (75-99) mg/dL 09/15/20 09/16/20 09/16/20 Range/Units 20:26 05:57 07:43 RBC 3.66 L (3.80-5.40) m/uL Hgb 10.2 L (11.4-16.0) gm/dL Hct 31.3 L (34.0-46.0) % Chloride (98-107) mmol/L Carbon Dioxide (22-30) mmol/L BUN (7-17) mg/dL Creatinine (0.52-1.04) mg/dL Glucose (74-99) mg/dL POC Glucose (mg/dL) 117 H 122 H (75-99) mg/dL 09/16/20 09/16/20 Range/Units 07:43 11:57 RBC (3.80-5.40) m/uL Hgb (11.4-16.0) gm/dL Hct (34.0-46.0) % Chloride 110 H (98-107) mmol/L Carbon Dioxide 19 L (22-30) mmol/L BUN 24 H (7-17) mg/dL Creatinine 1.15 H (0.52-1.04) mg/dL Glucose 109 H (74-99) mg/dL POC Glucose (mg/dL) 135 H (75-99) mg/dL Assessment and Plan Assessment: Acute to subacute infarct (along the distribution of right anterior cerebral artery. With symptoms of Worsening left-sided weakness). Seems embolic. Had brief fluctuation (worsening) of symptoms on the left side (worsening weakness) for the past 3 days. It is felt likely due to seizure (especially with large ischemic stroke over the right hemisphere causing cortical irratibility). Acute on chronic kidney insufficiency--improving. History of right MCA with residual left-sided weakness History of Right ICA stenosis status post stenting left ICA stenosis s/p stent (per CTA there is mid and distal stenosis of 70-60 while proximal is 50% stenosis reported)--which does explain patient current symptoms History of TIA with left-sided weakness in the March 2020 Chronic lower back pain History of myocardial infarction status post stenting and CABG Medication Non-compliance (ran out of ASA for one month). Plan: Continue ASA 81mg and Brilinta 90mg 1 tab bid. The patient to continue dual antiplatelets which will help with secondary stroke prophylaxis and beneficial for carotid stenosis. Continue Lipitor 80mg qhs for secondary stroke prophylaxis. Pending CTA head and neck. Increased Keppra from 750mg 1 tab bid to 1000mg 1 tab bid and started the patient on Vimpat 50mg 1 tab bid. Notified the nurse to keep the blood pressure persmissive because of her fluctuation of her symptoms. On continuous cardiac monitoring and every 4 hours neuro checks PT, OT and TIP FIXER are consulted. On event monitor. We'll defer the rest of the medical management to the primary team. The patient needs to follow-up with a neurologist within 1-2 weeks as outpatient. UPDATE: CTA head and neck: Idenfitife stent within the proximal left ICA which approximately 4cm in length. There is luminal narrowing at the mid and distal components of the stented portions of the ICA. Estimated luminar narrowing is 70-60%. 50% stenosis proximal left ICA. While the CTA head is reported as no significant abnormality. Per the patient's nurse, after me leaving the room she was able to lift it above gravity. The plan is discussed with the nurse. If no further fluctuation for 24 hours and the patient is clear from a neurolog ical standpoint and the patient needs to follow-up with a neurologist within 1-2 weeks as an outpatient. Brenton Lai MD Neuro-Hospitalist Time with Patient: Less than 30
--- NOTE | 2020-09-16 12:48 | CT ---
The EXAMINATION TYPE: CT angio head neck DATE OF EXAM: 09/16/2020 COMPARISON: None HISTORY: Worsening left sided weakness CONTRAST: Performed without and with IV Contrast, patient injected with 100 ml mL of Isovue 370. Combination Contrast CTA cervical carotids and [place] CTA cervical carotids with 3-D recons truction Contrast CTA of the cervical carotids was performed 3-D reconstruction imaging obtained at a separate workstation. Right carotid system: Mild plaque is seen of the right common carotid artery. There is mild plaque a lso noted at the carotid bulb and proximal ICA. The percent stenosis proximal left ICA suspected.ECA is patent. Right vertebral artery appears unremarkable. Left carotid system: Mild plaque is seen of the left common carotid artery. Identified is a stent wit hin the proximal left ICA which is approximately 4 cm in length. There is luminal narrowing at the mi d and distal components of the stented portion of the ICA. Estimated luminal narrowing of 70-60%.ECA is patent. Left vertebral artery appears unremarkable. IMPRESSION: 1. Identified is a stent within the proximal left ICA which is approximately 4 cm in length. There is luminal narrowing at the mid and distal components of the stented portion of the ICA. Estimated isabelle nal narrowing of 70-60%. #250% stenosis proximal left ICA. CTA [place] with 3-D reconstruction Contrast CTA of the [place] was performed 3-D reconstruction imaging obtained at a separate workstation. Vertebrobasilar system as well as intracranial portions of the internal carotid arteries and their ma shani tributaries are patent. I do not see evidence for sizable aneurysm or vascular malformation. Pl ease note MRI provides greater sensitivity and specificity. See CT brain for recent infarcts of the r ight brain. IMPRESSION: 1. No siginificant abnormality.
--- NOTE | 2020-09-16 16:50 | PN ---
PROGRESS NOTE CHIEF COMPLAINT: Right-sided CVA. HISTORY OF PRESENT ILLNESS: This lady is doing fairly well and there has been no interval change. We are awaiting discharge planning. PHYSICAL EXAM: CHEST: Clear. CARDIAC: Exam is normal. ABDOMEN: Soft, nontender. She is moving the left arm much better than she has been. IMPRESSION: 1. Right-sided CVA with left hemiparesis. 2. Hypertension. PLAN: She is cleared to go to a correction anytime. MMODL / IJN: [id number] /
[2020-09-16 17:13] LABS: Glucose,Whole Blood 117 mg/dL (75-99)
[2020-09-16] MEDS: levETIRAcetam 500 MG TAB PO SCH (20:40)
[2020-09-16] MEDS: MONTELUKAST 10 MG TAB PO SCH (20:40)
[2020-09-16] MEDS: ATORVASTATIN 80 MG TAB PO SCH (20:40)
[2020-09-16] MEDS: INSULIN DETEMIR (LEVEMIR) 100 UNIT/ML SYR SQ SCH (20:41)
[2020-09-16 21:40] LABS: Glucose,Whole Blood 123 mg/dL (75-99)
[2020-09-17] MEDS: PANTOPRAZOLE 40 MG TABLET PO SCH ×2 (05:02→16:48)
[2020-09-17] MEDS: HYDROcodone/APAP 10-325MG 1 EACH TAB PO PRN ×2 (06:30→13:19)
[2020-09-17 06:31] LABS: Glucose,Whole Blood 135 mg/dL (75-99)
[2020-09-17] MEDS: carvediloL 12.5 MG TAB PO SCH ×2 (09:27→20:01)
[2020-09-17] MEDS: hydrALAZINE HCL 50 MG TAB PO SCH (09:27)
[2020-09-17] MEDS: amLODIPine 10 MG TAB PO SCH (09:27)
[2020-09-17] MEDS: NICOTINE 21MG/24HR PATCH TRANSDERM SCH (09:27)
[2020-09-17] MEDS: HEPARIN SODIUM,PORCINE/PF 5,000 UNIT/0.5 ML SYRINGE SQ SCH ×3 (09:27→23:17)
[2020-09-17] MEDS: ASPIRIN 81 MG PO SCH (09:27)
[2020-09-17] MEDS: ISOSORBIDE MONONITRATE ER 60 MG TAB.ER.24H PO SCH (09:28)
[2020-09-17] MEDS: TICAGRELOR 90 MG TAB PO SCH ×2 (09:28→20:01)
[2020-09-17] MEDS: lisinopriL 20 MG TAB PO SCH (09:28)
[2020-09-17] MEDS: levETIRAcetam 500 MG TAB PO SCH ×2 (09:28→20:01)
[2020-09-17] MEDS: LACOSAMIDE 50 MG TABLET PO SCH ×2 (09:28→20:01)
[2020-09-17] MEDS: SODIUM CHLORIDE 0.9% 1,000 ML IV SCH ×3 (09:29→23:17)
[2020-09-17] MEDS: DOCUSATE 100 MG CAP PO SCH ×2 (09:45→20:02)
[2020-09-17 11:52] LABS: Glucose,Whole Blood 125 mg/dL (75-99)
--- NOTE | 2020-09-17 12:24 | PN ---
PROGRESS NOTE DATE OF SERVICE: 09/17/2020. CHIEF COMPLAINT: CVA. HISTORY OF PRESENT ILLNESS: This lady has been stable. There has been no interval. PHYSICAL EXAM: Speech is normal. Head, ears, eyes, nose and mouth ae normal. Chest is clear. Cardiac exam is normal. Abdomen is soft. IMPRESSION: Right-sided cerebrovascular accident. PLAN: She is ready to be discharged to residential anytime. MMODL / IJN: [id number] /
--- NOTE | 2020-09-17 12:24 | P.PN ---
Subjective Progress Note Date: 09/17/20 Patient was seen at bedside and per the patient nurse upon the patient wake up around 8 or 8:30 in the morning she had the brief episode where her left side was weak more than baseline and had left-sided numbness in the episode lasted that for a few minutes then resolved. The patient feels she is back to baseline now. She denies of any headaches, nausea or vomiting. Objective - Vital Signs Vital signs: Vital Signs Temp 99.0 F 09/17/20 11:08 Pulse 56 L 09/17/20 11:08 Resp 18 09/17/20 11:08 BP 125/52 09/17/20 11:08 Pulse Ox 97 09/17/20 11:08 Intake & Output 09/16/20 09/17/20 09/17/20 18:59 06:59 18:59 Intake Total 1258 800 240 Output Total 700 600 Balance 558 200 240 Weight 67.5 kg 66 kg Intake: IV 800 Sodium Chloride 0.9% 1, 800 000 ml @ 100 mls/hr IV . Q10H [facility] Rx#:[id number] Intake, IV Titration 900 Amount Sodium Chloride 0.9% 1, 900 000 ml @ 100 mls/hr IV . Q10H [facility] Rx#:[id number] Oral 358 240 Output: Urine 700 600 Other: Voiding Method Diaper Diaper Diaper External Catheter External Catheter External Catheter # Voids 1 - Exam GENERAL: The patient is lying in bed and is not in acute distress. NEUROLOGICAL: Higher mental function: The patient is awake, alert, oriented to self, place and time. Patient is following commands. No aphasia and no neglect. Cranial nerves: The pupils are round, equal and reactive to light and accommodation. Visual jj are full to confrontation throughout. Extraocular movement is intact no nystagmus is noted. Facial sensation is normal to touch throughout. The facial strength is mild to moderate left lower facial weakness. Tongue is midline and moved [id number] without any difficulty. No dysarthria is noted. Motor: Gait is deferred. The strength is over the left upper extremity is 4-/5 while left hand requirements engineer is increased tone and upon asking her to open up her hand she was and had hand requirements engineer of 3/5. Left lower extremity is 4+. Otherwise 5/5 over the right. Slightly increase tone over the proximal left upper extremity and moderate to significant over the left hand. Sensation: Sensation is normal to touch throughout. Reflexes (right/left): 3+ over the left side. Otherwise 2+ throughout. Plantars is upgoing over the left and mute over the right. LABS/IMAGING: * Carotid duplex was reported as no hemodynamic significant stenosis of the proximal internal carotid artery on the right by Doppler criteria, and in direct measurement of carotid stenosis. Right carotid artery stent is noted incidentally. There is elevated velocity in the proximal internal carotid artery on the left with borderline ICA to CCA elevated ratio but no elevation in end diastolic velocity with technical consideration as described. * MR the brain is reported as subacute infarct along the distribution of right anterior cerebral artery. Age-related changes of atrophy and chronic small vessel ischemia. * 2-D echo was reported as moderate concentric left ventricular hypertrophy. Ejection fraction of 55-60%. Left atrium is moderately dilated. * Lipid panel: Triglyceride 194, cholesterol of 205, LDL is 134 and HDL of 32. * Hemoglobin A1c is 6.9. * CT of the head on 09/14/2020 is done because of the patient's fluctuation of symptoms: Is reported as new area of moderate size decreased attenuation involving the high right frontal lobe compatible with acute CVA. Remote right MCA territory insult which appears slightly greater in size and posture relative to the prior study. No evidence for hemorrhagic transformation. I personally reviewed the CT of the head and I don't think this is a new stroke over the right frontal this is more subacute since especially was seen on the MRI the brain. * EEG on 09/14/2020. Abnormal routine EEG. There is asymmetrical background with mild slowing over the right suggestive of mild encephalopathy while the left the background is normal. The focal slowing over the right frontal/temporal/parietal regions consistent with the patient history of stroke. They are no epileptiform discharges or seizure on the EEG. Clinical correlation is recommended. * ROGER: It is reported as normal left ventricle systolic function. No intracardiac thrombus. No evidence of shunting across the intra-arterial septum. * CTA head and neck on 09/16/20: Idenfitife stent within the proximal left ICA which approximately 4cm in length. There is luminal narrowing at the mid and distal components of the stented portions of the ICA. Estimated luminar narrowing is 70-60%. 50% stenosis proximal left ICA. While the CTA head is reported as no significant abnormality. - Labs CBC & Chem 7: 09/16/20 07:43 09/16/20 07:43 Labs: Abnormal Lab Results - Last 24 Hours (Table) 09/16/20 09/16/20 09/17/20 Range/Units 17:10 21:37 06:29 POC Glucose (mg/dL) 117 H 123 H 135 H (75-99) mg/dL 09/17/20 Range/Units 11:50 POC Glucose (mg/dL) 125 H (75-99) mg/dL Assessment and Plan Assessment: Acute to subacute infarct (along the distribution of right anterior cerebral artery. With symptoms of Worsening left-sided weakness). Seems embolic. Had brief fluctuation (worsening) of symptoms on the left side (worsening weakness) for the past 4 days. It is felt likely due to seizure (especially with large ischemic stroke over the right hemisphere causing cortical irratibility). Acute on chronic kidney insufficiency--improving. History of right MCA with residual left-sided weakness History of Right ICA stenosis status post stenting left ICA stenosis s/p stent (per CTA there is mid and distal stenosis of 70-60 while proximal is 50% stenosis reported)--which does explain patient current symptoms History of TIA with left-sided weakness in the March 2020 Chronic lower back pain History of myocardial infarction status post stenting and CABG Medication Non-compliance (ran out of ASA for one month). Plan: Continue ASA 81mg and Brilinta 90mg 1 tab bid. The patient to continue dual antiplatelets which will help with secondary stroke prophylaxis and beneficial for carotid stenosis. Continue Lipitor 80mg qhs for secondary stroke prophylaxis. Increased Keppra from 1000mg 1 tab bid to 1250mg 1 tab bid and increased Vimpat from 50mg 1 tab bid to 100mg 1 tab bid. Avoid drastic drop in blood pressure. On continuous cardiac monitoring and every 4 hours neuro checks PT, OT and CLIPPER OPERATOR are consulted. On event monitor. We'll defer the rest of the medical management to the primary team. The patient needs to follow-up with a neurologist within 1-2 weeks as outpatient. If no further fluctuation by Saturday (09/19/2020), then patient is clear from a neurological standpoint and the patient needs to follow-up with a neurologist within 1-2 weeks as an outpatient. The plan is discussed with the nurse. Brenton Lai MD Neuro-Hospitalist Time with Patient: Less than 30
[2020-09-17 12:55] LABS: Basophils # (A) 0.1 k/uL (0-0.2); Basophils % (A) 1 %; Eosinophils # (A) 0.2 k/uL (0-0.7); Eosinophils % (A) 2 %; HCT 28.3 % (34.0-46.0); HGB 9.6 gm/dL (11.4-16.0); Lymphocytes # (A) 1.4 k/uL (1.0-4.8); Lymphocytes % (A) 17 %; MCH 29.3 pg (25.0-35.0); Mean Platelet Volume 7.8; Monocytes # (A) 0.4 k/uL (0-1.0); Monocytes % (A) 5 %; Neutrophils # (A) 5.9 k/uL (1.3-7.7); Neutrophils % (A) 74 %; Platelet Count 234 k/uL (150-450); RBC 3.29 m/uL (3.80-5.40); RDW 14.1 % (11.5-15.5); WBC 8.1 k/uL (3.8-10.6)
[2020-09-17 13:12] LABS: Calcium 9.2 mg/dL (8.4-10.2); Potassium 4.3 mmol/L (3.5-5.1)
[2020-09-17 16:43] LABS: Glucose,Whole Blood 114 mg/dL (75-99)
[2020-09-17] MEDS: MONTELUKAST 10 MG TAB PO SCH (20:02)
[2020-09-17] MEDS: ATORVASTATIN 80 MG TAB PO SCH (20:02)
[2020-09-17] MEDS: INSULIN DETEMIR (LEVEMIR) 100 UNIT/ML SYR SQ SCH (20:02)
[2020-09-17 20:26] LABS: Glucose,Whole Blood 131 mg/dL (75-99)
[2020-09-18] MEDS: PANTOPRAZOLE 40 MG TABLET PO SCH ×2 (05:37→17:02)
[2020-09-18 05:59] LABS: Glucose,Whole Blood 108 mg/dL (75-99)
[2020-09-18] MEDS ORDERED: FLUTICASONE 50MCG/SPRAY NASAL 16GM EA NOSTRIL PRN (08:40)
--- NOTE | 2020-09-18 09:23 | PN ---
PROGRESS NOTE CHIEF COMPLAINT: Right-sided CVA. HISTORY OF PRESENT ILLNESS: This lady remains fairly stable neurologically. In the last 24 hours, she has developed a lot of nasal congestion without epistaxis. PHYSICAL EXAM: The nose is somewhat congested. Chest is clear. Cardiac exam is normal. The left hemiparesis is about the same. IMPRESSION: 1. Nasal congestion and probable allergic rhinitis. 2. Right-sided cerebrovascular accident. 3. Hypertension. PLAN: 1. Nasal spray. 2. Await discharge this week to long term. MMODL / IJN: [id number] /
[2020-09-18] MEDS: HEPARIN SODIUM,PORCINE/PF 5,000 UNIT/0.5 ML SYRINGE SQ SCH ×3 (09:35→20:50)
[2020-09-18] MEDS: ASPIRIN 81 MG PO SCH (09:36)
[2020-09-18] MEDS: amLODIPine 10 MG TAB PO SCH (09:36)
[2020-09-18] MEDS: ISOSORBIDE MONONITRATE ER 60 MG TAB.ER.24H PO SCH (09:36)
[2020-09-18] MEDS: hydrALAZINE HCL 50 MG TAB PO SCH (09:36)
[2020-09-18] MEDS: carvediloL 12.5 MG TAB PO SCH ×2 (09:36→20:45)
[2020-09-18] MEDS: DOCUSATE 100 MG CAP PO SCH ×2 (09:36→20:45)
[2020-09-18] MEDS: LACOSAMIDE 50 MG TABLET PO SCH (09:37)
[2020-09-18] MEDS: levETIRAcetam 500 MG TAB PO SCH (09:37)
[2020-09-18] MEDS: lisinopriL 20 MG TAB PO SCH (09:38)
[2020-09-18] MEDS: NICOTINE 21MG/24HR PATCH TRANSDERM SCH (09:38)
[2020-09-18] MEDS: TICAGRELOR 90 MG TAB PO SCH ×2 (09:38→20:45)
[2020-09-18 11:50] LABS: Glucose,Whole Blood 125 mg/dL (75-99)
--- NOTE | 2020-09-18 11:57 | P.PN ---
Subjective Progress Note Date: 09/18/20 The patient seen at bedside and per the patient nurse in the morning she stated that she was doing well and no events no fluctuation in her symptoms then around between the patient had the complaint of left-sided numbness and the worsening of the left-sided weakness which lasted a few minutes and resolved and now she is back to baseline. Objective - Vital Signs Vital signs: Vital Signs Temp 98.0 F 09/18/20 11:23 Pulse 50 L 09/18/20 11:23 Resp 18 09/18/20 11:23 BP 157/65 09/18/20 11:23 Pulse Ox 98 09/18/20 11:23 Intake & Output 09/17/20 09/18/20 09/18/20 18:59 06:59 18:59 Intake Total 480 940 128 Balance 480 940 128 Weight 64 kg Intake: IV 820 10 Invasive Line 2 20 10 Sodium Chloride 0.9% 1, 800 000 ml @ 100 mls/hr IV . Q10H [facility] Rx#:[id number] Oral 480 120 118 Other: Voiding Method Diaper Diaper Bedside Commode External Catheter External Catheter # Voids 1 2 2 - Exam GENERAL: The patient is lying in bed and is not in acute distress. NEUROLOGICAL: Higher mental function: The patient is awake, alert, oriented to self, place and time. Patient is following commands. No aphasia and no neglect. Cranial nerves: The pupils are round, equal and reactive to light and ac commodation. Visual jj are full to confrontation throughout. Extraocular movement is intact no nystagmus is noted. Facial sensation is normal to touch throughout. The facial strength is mild to moderate left lower facial weakness. Tongue is midline and moved [id number] without any difficulty. No dysarthria is noted. Motor: Gait is deferred. The strength is over the left upper extremity is 4-/5 while left hand mobile designer is increased tone and upon asking her to open up her hand she was and had hand mobile designer of 3/5. Left lower extremity is 4+. Otherwise 5/5 over the right. Slightly increase tone over the proximal left upper extremity and moderate to significant over the left hand. Sensation: Sensation is normal to touch throughout. Reflexes (right/left): 3+ over the left side. Otherwise 2+ throughout. Plantars is upgoing over the left and mute over the right. LABS/IMAGING: * Carotid duplex was reported as no hemodynamic significant stenosis of the proximal internal carotid artery on the right by Doppler criteria, and in direct measurement of carotid stenosis. Right carotid artery stent is noted incidentally. There is elevated velocity in the proximal internal carotid artery on the left with borderline ICA to CCA elevated ratio but no elevation in end diastolic velocity with technical consideration as described. * MR the brain is reported as subacute infarct along the distribution of right anterior cerebral artery. Age-related changes of atrophy and chronic small vessel ischemia. * 2-D echo was reported as moderate concentric left ventricular hypertrophy. Ejection fraction of 55-60%. Left atrium is moderately dilated. * Lipid panel: Triglyceride 194, cholesterol of 205, LDL is 134 and HDL of 32. * Hemoglobin A1c is 6.9. * CT of the head on 09/14/2020 is done because of the patient's fluctuation of symptoms: Is reported as new area of moderate size decreased attenuation involving the high right frontal lobe compatible with acute CVA. Remote right MCA territory insult which appears slightly greater in size and posture relative to the prior study. No evidence for hemorrhagic transformation. I personally reviewed the CT of the head and I don't think this is a new stroke over the right frontal this is more subacute since especially was seen on the MRI the brain. * EEG on 09/14/2020. Abnormal routine EEG. There is asymmetrical background with mild slowing over the right suggestive of mild encephalopathy while the left the background is normal. The focal slowing over the right frontal/temporal/parietal regions consistent with the patient history of stroke. They are no epileptiform discharges or seizure on the EEG. Clinical correlation is recommended. * ROGER: It is reported as normal left ventricle systolic function. No int racardiac thrombus. No evidence of shunting across the intra-arterial septum. * CTA head and neck on 09/16/20: Idenfitife stent within the proximal left ICA which approximately 4cm in length. There is luminal narrowing at the mid and distal components of the stented portions of the ICA. Estimated luminar narrowing is 70-60%. 50% stenosis proximal left ICA. While the CTA head is reported as no significant abnormality. - Labs CBC & Chem 7: 09/17/20 12:42 09/17/20 12:42 Labs: Abnormal Lab Results - Last 24 Hours (Table) 09/17/20 09/17/20 09/17/20 Range/Units 11:50 12:42 12:42 RBC 3.29 L (3.80-5.40) m/uL Hgb 9.6 L (11.4-16.0) gm/dL Hct 28.3 L (34.0-46.0) % Chloride 111 H (98-107) mmol/L Carbon Dioxide 19 L (22-30) mmol/L BUN 24 H (7-17) mg/dL Creatinine 1.18 H (0.52-1.04) mg/dL Glucose 135 H (74-99) mg/dL POC Glucose (mg/dL) 125 H (75-99) mg/dL 09/17/20 09/17/20 09/18/20 Range/Units 16:41 20:22 05:56 RBC (3.80-5.40) m/uL Hgb (11.4-16.0) gm/dL Hct (34.0-46.0) % Chloride (98-107) mmol/L Carbon Dioxide (22-30) mmol/L BUN (7-17) mg/dL Creatinine (0.52-1.04) mg/dL Glucose (74-99) mg/dL POC Glucose (mg/dL) 114 H 131 H 108 H (75-99) mg/dL 09/18/20 Range/Units 11:48 RBC (3.80-5.40) m/uL Hgb (11.4-16.0) gm/dL Hct (34.0-46.0) % Chloride (98-107) mmol/L Carbon Dioxide (22-30) mmol/L BUN (7-17) mg/dL Creatinine (0.52-1.04) mg/dL Glucose (74-99) mg/dL POC Glucose (mg/dL) 125 H (75-99) mg/dL Assessment and Plan Assessment: Acute to subacute infarct (along the distribution of right anterior cerebral artery. With symptoms of Worsening left-sided weakness). Seems embolic. Had brief fluctuation (worsening) of symptoms on the left side (worsening weakness) for the past 5 days. It is felt likely due to seizure (especially with large ischemic stroke over the right hemisphere causing cortical irratibility). Acute on chronic kidney insufficiency--improving. History of right MCA with residual left-sided weakness History of Right ICA stenosis status post stenting left ICA stenosis s/p stent (per CTA there is mid and distal stenosis of 70-60 while proximal is 50% stenosis reported)--which does explain patient current symptoms History of TIA with left-sided weakness in the March 2020 Chronic lower back pain History of myocardial infarction status post stenting and CABG Medication Non-compliance (ran out of ASA for one month). Plan: Continue ASA 81mg and Brilinta 90mg 1 tab bid. The patient to continue dual antiplatelets which will help with secondary stroke prophylaxis and beneficial for carotid stenosis. Continue Lipitor 80mg qhs for secondary stroke prophylaxis. Increased Keppra from 1250mg 1 tab bid to 1500mg 1 tab bid and increased Vimpat from 100mg 1 tab bid to 150mg 1 tab bid. I ordered a 2 1/2 hours EEG as outpatient (she had routine EEG during this admission and did not show epileptiform discharges or seizures). Will possibly consider prolonged EEG as inpatient. Avoid drastic drop in blood pressure. Consulted vascular surgery for left carotid stenosis with history of stent but I do not think it is the cause of patient's symptoms in my opinion. On continuous cardiac monitoring and every 4 hours neuro checks PT, OT and IRON MOLDER HELPER are consulted. On event monitor. We'll defer the rest of the medical management to the primary team. The patient needs to follow-up with a neurologist within 1-2 weeks as outpatient. If no further fluctuation for 24-48 hours then patient is clear from a neurological standpoint and the patient needs to follow-up with a neurologist within 1-2 weeks as an outpatient. The plan is discussed with the nurse. Brenton Lai MD Neuro-Hospitalist Time with Patient: Less than 30
[2020-09-18] MEDS: SODIUM CHLORIDE 0.9% 1,000 ML IV SCH (15:54)
[2020-09-18 17:15] LABS: Glucose,Whole Blood 138 mg/dL (75-99)
[2020-09-18 20:19] LABS: Glucose,Whole Blood 130 mg/dL (75-99)
[2020-09-18] MEDS: INSULIN DETEMIR (LEVEMIR) 100 UNIT/ML SYR SQ SCH (20:34)
[2020-09-18] MEDS: MONTELUKAST 10 MG TAB PO SCH (20:45)
[2020-09-18] MEDS: ATORVASTATIN 80 MG TAB PO SCH (20:45)
[2020-09-18] MEDS: LACOSAMIDE 150 MG TABLET PO SCH (20:45)
[2020-09-18] MEDS: HYDROcodone/APAP 10-325MG 1 EACH TAB PO PRN (20:46)
[2020-09-19] MEDS: SODIUM CHLORIDE 0.9% 1,000 ML IV SCH ×4 (02:30→23:53)
[2020-09-19] MEDS: HYDROcodone/APAP 10-325MG 1 EACH TAB PO PRN ×3 (03:09→19:59)
[2020-09-19 05:38] LABS: HCT 27.3 % (34.0-46.0); HGB 8.9 gm/dL (11.4-16.0); MCH 28.1 pg (25.0-35.0); MCHC 32.5 g/dL (31.0-37.0); MCV 86.4 fL (80.0-100.0); Mean Platelet Volume 8.1; Platelet Count 252 k/uL (150-450); RBC 3.16 m/uL (3.80-5.40); RDW 14.4 % (11.5-15.5); WBC 7.3 k/uL (3.8-10.6)
[2020-09-19] MEDS: PANTOPRAZOLE 40 MG TABLET PO SCH ×2 (06:21→17:25)
[2020-09-19] MEDS: HEPARIN SODIUM,PORCINE/PF 5,000 UNIT/0.5 ML SYRINGE SQ SCH ×3 (09:16→23:52)
[2020-09-19] MEDS: amLODIPine 10 MG TAB PO SCH (09:17)
[2020-09-19] MEDS: NICOTINE 21MG/24HR PATCH TRANSDERM SCH (09:17)
[2020-09-19] MEDS: ISOSORBIDE MONONITRATE ER 60 MG TAB.ER.24H PO SCH (09:17)
[2020-09-19] MEDS: LACOSAMIDE 150 MG TABLET PO SCH ×2 (09:17→19:59)
[2020-09-19] MEDS: hydrALAZINE HCL 50 MG TAB PO SCH (09:17)
[2020-09-19] MEDS: ASPIRIN 81 MG PO SCH (09:17)
[2020-09-19] MEDS: DOCUSATE 100 MG CAP PO SCH ×2 (09:17→19:59)
[2020-09-19] MEDS: lisinopriL 20 MG TAB PO SCH (09:18)
[2020-09-19] MEDS: TICAGRELOR 90 MG TAB PO SCH ×2 (09:18→20:00)
[2020-09-19 11:10] LABS: Glucose,Whole Blood 127 mg/dL (75-99)
[2020-09-19] MEDS: carvediloL 12.5 MG TAB PO SCH ×2 (12:52→19:59)
--- NOTE | 2020-09-19 13:00 | P.PN ---
Subjective Progress Note Date: 09/19/20 Patient was seen for a follow-up. Patient initially seen by Dr. Brenton Lai. Please refer to his note for details. Patient's nurse was also present at the time of this interview. Patient was admitted for an acute stroke involving the right AISLINN vascular territory. Patient was on aspirin and Plavix, but she has stopped taking aspirin for a month prior to arrival. Patient was resumed on dual antiplatelet medication, but her symptoms fluctuated, therefore patient was placed on Brilinta 90 mg twice a day. Her symptoms of fluctuating symptoms persisted therefore patient was started on antiepileptic medication Keppra and then Vimpat added. Patient states that the last night she had woken up 3 times with seizure type spells. Her left foot would stiffen up and then her left leg started shaking an d she gets pins and needle sensation involving the right side of the face and lip region. This episode lasted for about 5 minutes. After she had the third episode, she called the nurse, but while the nurse came over, the episode has resolved. Patient has been started on Keppra 1500 mg twice a day and Vimpat 150 mg twice a day by Dr. Lai on current admission. Patient is not experiencing any side effects of these medications. LABS/IMAGING: * Carotid duplex was reported as no hemodynamic significant stenosis of the proximal internal carotid artery on the right by Doppler criteria, and in di rect measurement of carotid stenosis. Right carotid artery stent is noted incidentally. There is elevated velocity in the proximal internal carotid artery on the left with borderline ICA to CCA elevated ratio but no elevation in end diastolic velocity with technical consideration as described. * MR the brain is reported as subacute infarct along the distribution of right anterior cerebral artery. Age-related changes of atrophy and chronic small vessel ischemia. * 2-D echo was reported as moderate concentric left ventricular hypertrophy. Ejection fraction of 55-60%. Left atrium is moderately dilated. * Lipid panel: Triglyceride 194, cholesterol of 205, LDL is 134 and HDL of 32. * Hemoglobin A1c is 6.9. * CT of the head on 09/14/2020 is done because of the patient's fluctuation of symptoms: Is reported as new area of moderate size decreased attenuation involving the high right frontal lobe compatible with acute CVA. Remote right MCA territory insult which appears slightly greater in size and posture relative to the prior study. No evidence for hemorrhagic transformation. I personally reviewed the CT of the head and I don't think this is a new stroke over the right frontal this is more subacute since especially was seen on the MRI the brain. * EEG on 09/14/2020. Abnormal routine EEG. There is asymmetrical background with mild slowing over the right suggestive of mild encephalopathy while the left the background is normal. The focal slowing over the right frontal/temporal/parietal regions consistent with the patient history of stroke. They are no epileptiform discharges or seizure on the EEG. Clinical correlation is recommended. * ROGER 09/15/2020: It is reported as normal left ventricle systolic function. No intracardiac thrombus. No evidence of shunting across the intra-arterial septum. * CTA head and neck on 09/16/20: Idenfitife stent within the proximal left ICA which approximately 4cm in length. There is luminal narrowing at the mid and distal components of the stented portions of the ICA. Estimated luminar narrowing is 70-60%. 50% stenosis proximal left ICA. While the CTA head is reported as no significant abnormality. Objective - Vital Signs Vital signs: Vital Signs Temp 97.9 F 09/19/20 08:00 Pulse 50 L 09/19/20 08:00 Resp 18 09/19/20 08:00 BP 145/86 09/19/20 08:00 Pulse Ox 96 09/19/20 08:00 Intake & Output 09/18/20 09/19/20 09/19/20 18:59 06:59 18:59 Intake Total 258 980 240 Balance 258 980 240 Weight 101 kg Intake: IV 20 500 Invasive Line 2 20 Sodium Chloride 0.9% 1, 500 000 ml @ 100 mls/hr IV . Q10H [facility] Rx#:[id number] Oral 238 480 240 Other: Voiding Method Bedside Commode Toilet Toilet External Catheter External Catheter # Voids 2 1 1 - Exam Patient is an elderly female, laying comfortably in the bed, in no acute distress. Patient states it is September and the year is 2019 in that she is in [facility]. Patient is alert awake oriented as above. Speech and language functions are normal. Attention, concentration and fund of knowledge is adequate. Patient has mild dysarthria. On cranial examination, pupils are round and reacting to light, visual jj are full on confrontation on either side, however patient neglects the left side on double simultaneous stimulation. Her extraocular muscles are intact with no nystagmus. Face has left sided asymmetry, central type, tongue protrudes to the midline. Palatal elevation and sensation normal, hearing and shoulder shrug normal, facial sensation normal. On muscle strength testing, there is left pronator drift and the strength is normal in arms and legs distally and proximally, including detailed testing of the left side. Her left hip flexion maybe 5-as compared to the right otherwise appears normal. Deep tendon reflexes are 1+ and plantar is downgoing on the right and upon left. Sensory to touch is equal with no neglect. Cerebellar function showed no ataxia for [id number] testing. Tone is mildly increased on the left and bulk of muscles normal. Gait not checked. On general examination, there is no carotid bruit or murmur, S1-S2 audible. Abdomen is soft nontender. Chest is clear. Peripheral pulses are present. No edema. - Labs CBC & Chem 7: 09/19/20 04:43 09/19/20 04:43 Labs: Abnormal Lab Results - Last 24 Hours (Table) 09/18/20 09/18/20 09/18/20 Range/Units 11:48 17:13 20:18 RBC (3.80-5.40) m/uL Hgb (11.4-16.0) gm/dL Hct (34.0-46.0) % Chloride (98-107) mmol/L Carbon Dioxide (22-30) mmol/L BUN (7-17) mg/dL Creatinine (0.52-1.04) mg/dL Glucose (74-99) mg/dL POC Glucose (mg/dL) 125 H 138 H 130 H (75-99) mg/dL 09/19/20 09/19/20 Range/Units 04:43 04:43 RBC 3.16 L (3.80-5.40) m/uL Hgb 8.9 L (11.4-16.0) gm/dL Hct 27.3 L (34.0-46.0) % Chloride 109 H (98-107) mmol/L Carbon Dioxide 20 L (22-30) mmol/L BUN 20 H (7-17) mg/dL Creatinine 1.14 H (0.52-1.04) mg/dL Glucose 102 H (74-99) mg/dL POC Glucose (mg/dL) (75-99) mg/dL Assessment and Plan Assessment: Acute to subacute infarct involving the distribution of right anterior cerebral artery. Patient has history of an old stroke involving the right MCA vascular territory as well. Had brief fluctuation (worsening) of symptoms on the left side (worsening weakness) for the past 5 days. It is felt likely due to seizure (especially with large ischemic stroke over the right hemisphere causing cortical irratibility). Acute on chronic kidney insufficiency--improving. History of right MCA with residual left-sided weakness History of left ICA stenosis status post stenting left ICA stenosis s/p stent (per CTA there is mid and distal stenosis of 70-60 while proximal is 50% stenosis reported)--which does not explain patient current symptoms History of TIA with left-sided weakness in the March 2020 Chronic lower back pain History of myocardial infarction status post stenting and CABG Medication Non-compliance (ran out of ASA for one month). Plan: Continue ASA 81mg and Brilinta 90mg 1 tab bid. Continue Lipitor 80mg qhs for se condary stroke prophylaxis. ROGER showed no embolic source. Telemetry showing no A. fib. Patient strongly recommended complete tobacco cessation. Decrease Keppra down to 1000 mg twice a day because of mild renal insufficiency. Continue Vimpat 150mg 1 tab bid. Patient will undergo 2 1/2 hours EEG as outpatient (she had routine EEG during this admission and did not show epileptiform discharges or seizures). This will be scheduled prior to her discharge. Spoke to [place] certified control systems technician. Patient may even need prolonged EEG monitoring at EMU, if she continues to have these possible focal seizures. Await vascular surgery. On continuous cardiac monitoring and every 4 hours neuro checks PT, OT and HR CONSULTANT are consulted. On event monitor. We'll defer the rest of the medical management to the primary team. The patient needs to follow-up with a neurologist within 1-2 weeks as outpatient.
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
[2020-09-19 16:18] LABS: Glucose,Whole Blood 132 mg/dL (75-99)
--- NOTE | 2020-09-19 19:20 | PN ---
PROGRESS NOTE DATE OF SERVICE: 09/19/2020. CHIEF COMPLAINT: CVA. HISTORY OF PRESENT ILLNESS: This lady is stable and she has no complaints. We are waiting her discharge to alf. She can go today. PHYSICAL EXAMINATION: Chest is clear. Cardiac exam is normal. Abdomen soft and nontender. She is moving the left side much better than when she came in. IMPRESSION: 1. Right-sided CVA with left hemiparesis. 2. Hypertension. PLAN: Discharge to rehab today. MMODL / IJN: [id number] /
[2020-09-19] MEDS: MONTELUKAST 10 MG TAB PO SCH (19:59)
[2020-09-19] MEDS: levETIRAcetam 500 MG TAB PO SCH (20:00)
[2020-09-19] MEDS: ATORVASTATIN 80 MG TAB PO SCH (20:00)
[2020-09-19 20:07] LABS: Glucose,Whole Blood 136 mg/dL (75-99)
[2020-09-19] MEDS: INSULIN DETEMIR (LEVEMIR) 100 UNIT/ML SYR SQ SCH (20:12)
[2020-09-20 06:00] LABS: Glucose,Whole Blood 101 mg/dL (75-99)
[2020-09-20] MEDS: PANTOPRAZOLE 40 MG TABLET PO SCH ×2 (06:11→16:54)
[2020-09-20] MEDS: hydrALAZINE HCL 50 MG TAB PO SCH (09:05)
[2020-09-20] MEDS: amLODIPine 10 MG TAB PO SCH (09:06)
[2020-09-20] MEDS: DOCUSATE 100 MG CAP PO SCH (09:06)
[2020-09-20] MEDS: ISOSORBIDE MONONITRATE ER 60 MG TAB.ER.24H PO SCH (09:06)
[2020-09-20] MEDS: ASPIRIN 81 MG PO SCH (09:06)
[2020-09-20] MEDS: carvediloL 12.5 MG TAB PO SCH (09:06)
[2020-09-20] MEDS: LACOSAMIDE 150 MG TABLET PO SCH (09:06)
[2020-09-20] MEDS: levETIRAcetam 500 MG TAB PO SCH (09:06)
[2020-09-20] MEDS: lisinopriL 20 MG TAB PO SCH (09:06)
[2020-09-20] MEDS: TICAGRELOR 90 MG TAB PO SCH (09:06)
[2020-09-20] MEDS: HEPARIN SODIUM,PORCINE/PF 5,000 UNIT/0.5 ML SYRINGE SQ SCH ×2 (09:07→16:54)
[2020-09-20] MEDS: NICOTINE 21MG/24HR PATCH TRANSDERM SCH (09:07)
[2020-09-20 09:12] VITALS: RESP 16; TEMP 96.7
[2020-09-20] MEDS: HYDROcodone/APAP 10-325MG 1 EACH TAB PO PRN (09:17)
[2020-09-20 11:50] LABS: Glucose,Whole Blood 127 mg/dL (75-99)
[2020-09-20 12:31] VITALS: PULSE 55
--- NOTE | 2020-09-20 15:05 | DS ---
DISCHARGE SUMMARY CHIEF COMPLAINT: Left-sided weakness. HISTORY OF PRESENT ILLNESS AND PHYSICAL EXAMINATION: Details of this lady's history and physical can be found in the initial workup. LABORATORY STUDIES: While she was in a hospital she had laboratory studies, details of which can be found in the laboratory section of her chart. COURSE IN THE HOSPITAL: After admission she was placed on bedrest, on intravenous fluids and she had frequent monitoring of her neurologic status and vital signs. Her left-sided hemiparesis was quite dense upon admission, but did improve throughout her hospitalization. She did not have any difficulty with speech or cognition nor any difficulty swallowing. She was seen and followed by Neurology and eventually felt to be stable enough to be discharged with physical therapy and rehab. She will be going to [facility]. FINAL DIAGNOSIS: 1. Right-sided cerebrovascular accident with left hemiparesis. 2. Atherosclerotic cardiovascular disease. 3. Hypertension. OPERATIONS: None. CONSULTATIONS: Neurology. She is improved. MERRY / AVELINO: [id number] /
--- NOTE | 2020-09-20 15:09 | P.PN ---
Subjective Progress Note Date: 09/20/20 09/20/2020: Patient states that she is not feeling better. She went to the bathroom and her legs started shaking. Patient also has spasms of her left arm, almost appearing like spasticity/dystonia. No seizures. 09/19/2020: Patient was seen for a follow-up. Patient initially seen by Dr. Brenton Lai. Please refer to his note for details. Patient's nurse was also present at the time of this interview. Patient was admitted for an acute stroke involving the right AISLINN vascular territory. Patient was on aspirin and Plavix, but she has stopped taking aspirin for a month prior to arrival. Patient was resumed on dual antiplatelet medication, but her symptoms fluctuated, therefore patient was placed on Brilinta 90 mg twice a day. Her symptoms of fluctuating symptoms persisted therefore patient was started on antiepileptic medication Keppra and then Vimpat added. Patient states that the last night she had woken up 3 times with seizure type spells. Her left foot would stiffen up and then her left leg started shaking and she gets pins and needle sensation involving the right side of the face and lip region. This episode lasted for about 5 minutes. After she had the third episode, she called the nurse, but while the nurse came over, the episode has resolved. Patient has been started on Keppra 1500 mg twice a day and Vimpat 150 mg twice a day by Dr. Lai on current admission. Patient is not experiencing any side effects of these medications. LABS/IMAGING: * Carotid duplex was reported as no hemodynamic significant stenosis of the proximal internal carotid artery on the right by Doppler criteria, and in direct measurement of carotid stenosis. Right carotid artery stent is noted incidentally. There is elevated velocity in the proximal internal carotid artery on the left with borderline ICA to CCA elevated ratio but no elevation in end diastolic velocity with technical consideration as described. * MR the brain is reported as subacute infarct along the distribution of right anterior cerebral artery. Age-related changes of atrophy and chronic small vessel ischemia. * 2-D echo was reported as moderate concentric left ventricular hypertrophy. Ejection fraction of 55-60%. Left atrium is moderately dilated. * Lipid panel: Triglyceride 194, cholesterol of 205, LDL is 134 and HDL of 32. * Hemoglobin A1c is 6.9. * CT of the head on 09/14/2020 is done because of the patient's fluctuation of symptoms: Is reported as new area of moderate size decreased attenuation involving the high right frontal lobe compatible with acute CVA. Remote right MCA territory insult which appears slightly greater in size and posture relative to the prior study. No evidence for hemorrhagic transformation. I personally reviewed the CT of the head and I don't think this is a new stroke over the right frontal this is more subacute since especially was seen on the MRI the brain. * EEG on 09/14/2020. Abnormal routine EEG. There is asymmetrical background with mild slowing over the right suggestive of mild encephalopathy while the left the background is normal. The focal slowing over the right frontal/temporal/parietal regions consistent with the patient history of stroke. They are no epileptiform discharges or seizure on the EEG. Clinical correlation is recommended. * ROGER 09/15/2020: It is reported as normal left ventricle systolic function. No intracardiac thrombus. No evidence of shunting across the intra-arterial septum. * CTA head and neck on 09/16/20: Idenfitife stent within the proximal left ICA which approximately 4cm in length. There is luminal narrowing at the mid and distal components of the stented portions of the ICA. Estimated luminar narrowing is 70-60%. 50% stenosis proximal left ICA. While the CTA head is reported as no significant abnormality. Objective - Vital Signs Vital signs: Vital Signs Temp 96.7 F L 09/20/20 08:00 Pulse 55 L 09/20/20 12:00 Resp 16 09/20/20 12:00 BP 147/65 09/20/20 12:00 Pulse Ox 97 09/20/20 12:00 Intake & Output 09/19/20 09/20/20 09/20/20 18:59 06:59 18:59 Intake Total 480 236 Output Total 760 Balance 480 -760 236 Weight 76.4 kg Intake: Oral 480 236 Output: Urine 760 Other: Voiding Method Toilet Bedside Commode Bedside Commode External Catheter Diaper Diaper # Voids 3 2 1 - Exam Patient had spasm of the left arm, probably related to severe spasticity. At times it almost appears like dystonia. - Labs CBC & Chem 7: 09/19/20 04:43 09/19/20 04:43 Labs: Abnormal Lab Results - Last 24 Hours (Table) 09/19/20 09/19/20 09/20/20 Range/Units 16:11 20:05 05:59 POC Glucose (mg/dL) 132 H 136 H 101 H (75-99) mg/dL 09/20/20 Range/Units 11:48 POC Glucose (mg/dL) 127 H (75-99) mg/dL Assessment and Plan Assessment: Acute to subacute infarct involving the distribution of right anterior cerebral artery. Patient has history of an old stroke involving the right MCA vascular territory as well. Left arm spasticity, possible dystonia. Doubt seizures. Patient placed on antiepileptic medication by Dr. Lai, for possible focal seizures. Events not improving despite being on high-dose Keppra and Vimpat. Therefore appears more non-epileptic spells. Acute on chronic kidney insufficiency--improving. History of right MCA with residual left-sided weakness History of left ICA stenosis status post stenting left ICA stenosis s/p stent (per CTA there is mid and distal stenosis of 70-60 while proximal is 50% stenosis reported)--which does not explain patient current symptoms History of TIA with left-sided weakness in the March 2020 Chronic lower back pain History of myocardial infarction status post stenting and CABG Medication Non-compliance (ran out of ASA for one month). Plan: Patient's left arm and leg is slightly spastic/dystonic. We will give a trial of baclofen 10 mg 3 times a day. Patient was informed of side effects including drowsiness. Continue ASA 81mg and Brilinta 90mg 1 tab bid. Continue Lipitor 80mg qhs for secondary stroke prophylaxis. ROGER showed no embolic source. Telemetry showing no A. fib. Patient strongly recommended complete tobacco cessation. Decrease Keppra down to 1000 mg twice a day because of mild renal insufficiency. Continue Vimpat 150mg 1 tab bid. If the symptoms improve with baclofen, would consider slowly weaning down antiepileptic medication. Patient will undergo 2 1/2 hours EEG as outpatient (she had routine EEG during this admission and did not show epileptiform discharges or seizures). This will be scheduled prior to her discharge. Spoke to [place] overhead door technician. Patient may even need prolonged EEG monitoring at EMU, if she continues to have these possible focal seizures. Vascular surgery input appreciated. Patient to follow up with her vascular surgeon as outpatient. Telemetry monitoring showing sinus rhythm with sinus bradycardia, PVCs. No A. fib. PT, OT and CUSTOMER EXPERIENCE SPECIALIST are consulted. On event monitor. The patient needs to follow-up with a neurologist within 1-2 weeks as outpatient.
[2020-09-20] MEDS ORDERED: BACLOFEN 10 MG TAB PO SCH (16:00)
[2020-09-20 16:23] LABS: Glucose,Whole Blood 143 mg/dL (75-99)
[2020-09-20] MEDS: SODIUM CHLORIDE 0.9% 1,000 ML IV SCH (16:49)
[2020-09-20 16:57] VITALS: BP 155/63
--- NOTE | 2020-09-20 18:53 | DS ---
DISCHARGE SUMMARY CHIEF COMPLAINT: Left-sided weakness. HISTORY OF PRESENT ILLNESS AND PHYSICAL EXAMINATION: Details of this lady's history and physical can be found in the initial workup. LABORATORY STUDIES: While she was in the hospital, she had laboratory studies, details of which can be found in the laboratory section of her chart. COURSE IN THE HOSPITAL: After admission, she was placed on bedrest and started on intravenous fluids and had frequent monitoring of her neurologic status and vital signs. Her left-sided weakness did improve. She did not develop dysphagia, or speech difficulties. She underwent several studies by Neurology and was stable. It was felt that she could be discharged and she will be going to a halfway for physical therapy and rehab. FINAL DIAGNOSES: 1. Right-sided cerebrovascular accident with left hemiparesis. 2. Hypertension. 3. Atherosclerotic cardiovascular disease. OPERATIONS: None. CONSULTATION: Neurology. She is improved. MERRY / AVELINO: [id number] /
--- NOTE | 2020-09-21 15:33 | CDI ---
Documentation Clarification Form Date: 09/21/20 From: Katelin Sweet Admit Date: 09/11/2020 11:14:00 PM Patient Name: Lupe Oh Visit Number: [id number] Discharge Date: 09/20/2020 05:33:00 PM ATTENTION: The Clinical Documentation Specialists (CDI) and [facility] Coding Staff appreciate your assistance in clarifying documentation. Please respond to the clarification below the line at the bottom and electronically sign. The CDI & [facility] Coding staff will review the response and follow-up if needed. Please note: Queries are made part of the Legal Health Record. If you have any questions, please contact the author of this message via ITS. Dr. Miguelito Russo, Unspecified CKD is documented in all three consults, multiple PNs Additional clarification regarding the stage of CKD is requested. History/Risk Factors: cerebral infarction, left hemiplegia, Type II DM Patients Historical BUN/CR/GFR: not available Clinical Indicators: Acute and chronic renal failure. Current BUN: 47, 41, 31, 29, 30, 24, 24, 20 Current CR: 1.93, 1.56, 1.24, 1.34, 1.33, 1.15, 1.18, 1.14 Current GFR: 26, 33, 44, 40, 40, 48, 47, 49 Treatment: monitor labs, IV fluids, Please clarify the stage of the CKD, if known: [ ] CKD ruled out [ ] CKD Stage 1 (GFR > 90) [ ] CKD Stage 2 (GFR 60-89) [ ] CKD Stage 3 (GFR 30-59) [ ] CKD Stage 3a (GFR 45-59) [ ] CKD Stage 3b (GFR 30-44) [ ] CKD Stage 4 (GFR 15-29) [ ] CKD Stage 5 (GFR <15) [ ] ESRD [ ] Other, please specify [ ] Unable to determine MTDD
--- NOTE | 2020-09-21 23:30 | MISC ---
MISCELLANOUS REPORT CKD stage IIIB. MMODL / IJN: [id number] /
== END 2020-09-20 17:33 | DRG 65 ==
LOC: EC 21:10 → 3SCARD 23:14
PROVIDERS: ADMIT Family Medicine; ATTEND Family Medicine
PROC: B24BZZ4 Ultrasonography of Heart with Aorta, Transesophageal (ICD-10-PCS; principal; 2020-09-15 11:10)
DX: I63.521 Cerebral infarction due to unspecified occlusion or stenosis of right anterior cerebral artery (principal); G81.94 Hemiplegia, unspecified affecting left nondominant side; N17.9 Acute kidney failure, unspecified; E11.51 Type 2 diabetes mellitus with diabetic peripheral angiopathy without gangrene; E11.22 Type 2 diabetes mellitus with diabetic chronic kidney disease; R56.9 Unspecified convulsions; D63.1 Anemia in chronic kidney disease; N18.32 Chronic kidney disease, stage 3b; Z79.4 Long term (current) use of insulin; Z20.822 Contact with and (suspected) exposure to COVID-19; R29.713 NIHSS score 13; I65.23 Occlusion and stenosis of bilateral carotid arteries; I25.10 Atherosclerotic heart disease of native coronary artery without angina pectoris; E78.5 Hyperlipidemia, unspecified; G89.29 Other chronic pain; I25.2 Old myocardial infarction; T39.016A Underdosing of aspirin, initial encounter; Z91.128 Patient's intentional underdosing of medication regimen for other reason; I07.1 Rheumatic tricuspid insufficiency; F41.9 Anxiety disorder, unspecified; G51.0 Bell's palsy; M54.5 Low back pain; J30.9 Allergic rhinitis, unspecified; F17.200 Nicotine dependence, unspecified, uncomplicated; Z71.6 Tobacco abuse counseling; Z79.02 Long term (current) use of antithrombotics/antiplatelets; Z79.899 Other long term (current) drug therapy; Z95.5 Presence of coronary angioplasty implant and graft; Z95.1 Presence of aortocoronary bypass graft; Z95.828 Presence of other vascular implants and grafts; Y92.009 Unspecified place in unspecified non-institutional (private) residence as the place of occurrence of the external cause; I13.10 Hypertensive heart and chronic kidney disease without heart failure, with stage 1 through stage 4 chronic kidney disease, or unspecified chronic kidney disease; Z82.49 Family history of ischemic heart disease and other diseases of the circulatory system
CPT/HCPCS: 36415; 70450; 70496; 70498; 70551; 73502; 80048; 80053; 80061; 83036; 83735; 84484; 85025; 85027; 85610; 85730; 87635; 93270; 93306; 93312; 93320; 93325; 93880; 94760; 95816; 99285

== ENCOUNTER 2020-09-28 13:07 | Observation (INO) | payer MEDICARE, OTHER ==
--- NOTE | 2020-09-28 13:39 | ED ---
General Adult HPI - General Chief complaint: Syncope Stated complaint: syncope Time Seen by Provider: 09/28/20 13:08 Source: patient, EMS, RN notes reviewed Mode of arrival: EMS Limitations: physical limitation - History of Present Illness Initial comments: Patient is a pleasant 69-year-old female presenting to the emergency Department with complaints of syncopal episode. Patient does not recall the episode and has no complaints. Patient did have recent stroke on september with left- sided weakness that persists, unchanged. Patient does not feel confused. Patient was reportedly hypotensive and bradycardic during the episode. No headache. No abdominal or back pain. No chest pain or dyspnea. - Related Data Home Medications Medication Instructions Recorded Confirmed Carvedilol [Coreg] 25 mg PO BID@0900,1700 03/30/20 09/28/20 Chlorthalidone 25 mg PO DAILY@89903/30/20 09/28/20 Insulin Glargine,Hum.rec.anlog 50 unit SQ HS@209903/30/20 09/28/20 [Lantus Solostar] Isosorbide Mononitrate ER [Imdur] 60 mg PO DAILY@89903/30/20 09/28/20 Metoclopramide [Reglan] 10 mg PO TID@0700,1100,1600 03/30/20 09/28/20 Montelukast [Singulair] 10 mg PO DAILY@209903/30/20 09/28/20 Nitroglycerin Sl Tabs [Nitrostat] 0.4 mg SL Q5M PRN 03/30/20 09/28/20 Omeprazole 20 mg PO BID@0900,1700 03/30/20 09/28/20 amLODIPine [Norvasc] 10 mg PO DAILY@89903/30/20 09/28/20 hydrALAZINE HCL [Apresoline] 100 mg PO DAILY@89903/30/20 09/28/20 lisinopriL 40 mg PO DAILY@89903/30/20 09/28/20 Atorvastatin [Lipitor] 80 mg PO HS@209909/12/20 09/28/20 Ergocalciferol [Vitamin D2 (1250 1,250 mcg PO TH@89909/12/20 09/28/20 Mcg = 19180 Iu)] ALPRAZolam [Xanax] 1 mg PO TID PRN 09/28/20 09/28/20 Acetaminophen Tab [Tylenol] 650 mg PO Q6H PRN 09/28/20 09/28/20 Aspirin EC [Ecotrin Low Dose] 81 mg PO DAILY@0900 09/28/20 09/28/20 Lacosamide [Vimpat] 150 mg PO BID@0900,1700 09/28/20 09/28/20 Metoclopramide HCl [Reglan] 10 mg PO HS PRN 09/28/20 09/28/20 Nicotine 21Mg/24Hr Patch [Habitrol] 1 patch TRANSDERM DAILY@1300 09/28/20 09/28/20 Ticagrelor [Brilinta] 90 mg PO BID@0900,1700 09/28/20 09/28/20 levETIRAcetam [Keppra] 1,000 mg PO BID@0900,1700 09/28/20 09/28/20 Allergies Allergy/AdvReac Type Severity Reaction Status Date / Time No Known Allergies Allergy Verified 03/30/20 18:25 Review of Systems ROS Statement: Those systems with pertinent positive or pertinent negative responses have been documented in the HPI. ROS Other: All systems not noted in ROS Statement are negative. Constitutional: Denies: fever Eyes: Denies: eye pain ENT: Denies: ear pain Respiratory: Denies: cough Cardiovascular: Denies: chest pain Endocrine: Denies: fatigue Gastrointestinal: Denies: abdominal pain Genitourinary: Denies: dysuria Musculoskeletal: Denies: back pain Skin: Denies: rash Neurological: Reports: weakness (Left-sided weakness persistent since September 11). Denies: headache Past Medical History Past Medical History: CVA/TIA, Myocardial Infarction ([place]) Additional Past Medical History / Comment(s): CVA 2017,CVA 2020, Last Myocardial Infarction Date:: 2014 History of Any Multi-Drug Resistant Organisms: None Reported Past Surgical History: Coronary Bypass/CABG, Heart Catheterization With Stent Additional Past Surgical History / Comment(s): back surgery, 4 vesssel bypass 2003, heart cath with no stent on 05/29 Past Anesthesia/Blood Transfusion Reactions: No Reported Reaction Date of Last Stent Placement:: 2014 Past Psychological History: Anxiety Smoking Status: Current every day smoker Past Alcohol Use History: None Reported Past Drug Use History: None Reported - Past Family History Mother Family Medical History: Myocardial Infarction (MD) Father Family Medical History: CVA/TIA General Exam Limitations: physical limitation General appearance: alert, in no apparent distress Head exam: Present: atraumatic Eye exam: Present: normal appearance, PERRL ENT exam: Present: normal oropharynx Neck exam: Present: normal inspection Respiratory exam: Present: normal lung sounds bilaterally Cardiovascular Exam: Present: regular rate, normal rhythm Expanded Peripheral pulses: 2+: Radial (R), Radial (L), Dorsalis Pedis (R), Dorsalis Pedis (L) GI/Abdominal exam: Present: soft. Absent: tenderness Extremities exam: Present: normal inspection. Absent: pedal edema, calf tenderness Neurological exam: Present: alert, oriented X3 Expanded Cranial nerves: Facial Palsy with Forehead Movement: Abnormal Right Motor strength exam: RUE: 5, LUE: 2/1, RLE: 5, LLE: 2/1 Eye Response: (4) open spontaneously Motor Response: (6) obeys commands Verbal Response: (5) oriented Psychiatric exam: Present: normal affect, normal mood Skin exam: Present: normal color Course Vital Signs 09/28/20 09/28/20 09/28/20 13:08 14:13 15:15 Temperature 97.9 F Pulse Rate 56 L 56 L 55 L Respiratory 20 20 18 Rate Blood Pressure 130/60 130/53 145/57 O2 Sat by Pulse 97 98 99 Oximetry EKG Findings - EKG Comments: EKG Findings:: Sed rate cardiac with rate of 55. First-degree AV block with a RI of 202. QRS 102. QT 44. QTC 463. Left axis. T-wave inversion lateral. Medical Decision Making - Medical Decision Making Patient reevaluated and updated. Case was discussed with Dr. Russo who is familiar with this patient and will admit. - Lab Data Result diagrams: 09/28/20 13:42 09/28/20 13:42 Lab Results 09/28/20 09/28/20 09/28/20 Range/Units 13:42 13:42 13:42 WBC 11.9 H (3.8-10.6) k/uL RBC 3.35 L (3.80-5.40) m/uL Hgb 9.7 L (11.4-16.0) gm/dL Hct 29.7 L (34.0-46.0) % MCV 88.8 (80.0-100.0) fL MCH 29.0 (25.0-35.0) pg MCHC 32.7 (31.0-37.0) g/dL RDW 14.4 (11.5-15.5) % Plt Count 347 (150-450) k/uL MPV 8.6 Neutrophils % 80 % Lymphocytes % 13 % Monocytes % 4 % Eosinophils % 2 % Basophils % 1 % Neutrophils # 9.5 H (1.3-7.7) k/uL Lymphocytes # 1.6 (1.0-4.8) k/uL Monocytes # 0.5 (0-1.0) k/uL Eosinophils # 0.2 (0-0.7) k/uL Basophils # 0.1 (0-0.2) k/uL PT (9.0-12.0) sec INR (<1.2) APTT (22.0-30.0) sec Sodium 141 (137-145) mmol/L Potassium 4.7 (3.5-5.1) mmol/L Chloride 106 (98-107) mmol/L Carbon Dioxide 23 (22-30) mmol/L Anion Gap 12 mmol/L BUN 44 H (7-17) mg/dL Creatinine 1.88 H (0.52-1.04) mg/dL Est GFR (CKD-EPI)AfAm 31 (>60 ml/min/1.73 sqM) Est GFR (CKD-EPI)NonAf 27 (>60 ml/min/1.73 sqM) Glucose 124 H (74-99) mg/dL POC Glucose (mg/dL) (75-99) mg/dL POC Glu [employer]ing Machine Repairer ID Calcium 9.5 (8.4-10.2) mg/dL Magnesium 2.1 (1.6-2.3) mg/dL Total Bilirubin 0.4 (0.2-1.3) mg/dL AST 40 H (14-36) U/L ALT 33 (4-34) U/L Alkaline Phosphatase 110 (38-126) U/L Troponin I (0.000-0.034) ng/mL Total Protein 7.0 (6.3-8.2) g/dL Albumin 4.3 (3.5-5.0) g/dL Urine Color Yellow Urine Appearance Clear (Clear) Urine pH 5.0 (5.0-8.0) Ur Specific [place] 1.014 (1.001-1.035) Urine Protein 1+ H (Negative) Urine Glucose (UA) Negative (Negative) Urine Ketones Negative (Negative) Urine Blood Negative (Negative) Urine Nitrite Negative (Negative) Urine Bilirubin Negative (Negative) Urine Urobilinogen <2.0 (<2.0) mg/dL Ur Leukocyte Esterase Negative (Negative) Urine WBC <1 (0-5) /hpf 09/28/20 09/28/20 09/28/20 Range/Units 13:42 14:07 15:13 WBC (3.8-10.6) k/uL RBC (3.80-5.40) m/uL Hgb (11.4-16.0) gm/dL Hct (34.0-46.0) % MCV (80.0-100.0) fL MCH (25.0-35.0) pg MCHC (31.0-37.0) g/dL RDW (11.5-15.5) % Plt Count (150-450) k/uL MPV Neutrophils % % Lymphocytes % % Monocytes % % Eosinophils % % Basophils % % Neutrophils # (1.3-7.7) k/uL Lymphocytes # (1.0-4.8) k/uL Monocytes # (0-1.0) k/uL Eosinophils # (0-0.7) k/uL Basophils # (0-0.2) k/uL PT 10.4 (9.0-12.0) sec INR 1.0 (<1.2) APTT 19.6 L (22.0-30.0) sec Sodium (137-145) mmol/L Potassium (3.5-5.1) mmol/L Chloride (98-107) mmol/L Carbon Dioxide (22-30) mmol/L Anion Gap mmol/L BUN (7-17) mg/dL Creatinine (0.52-1.04) mg/dL Est GFR (CKD-EPI)AfAm (>60 ml/min/1.73 sqM) Est GFR (CKD-EPI)NonAf (>60 ml/min/1.73 sqM) Glucose (74-99) mg/dL POC Glucose (mg/dL) 135 H (75-99) mg/dL POC Glu Copying Machine Repairer Josue Guzman Calcium (8.4-10.2) mg/dL Magnesium (1.6-2.3) mg/dL Total Bilirubin (0.2-1.3) mg/dL AST (14-36) U/L ALT (4-34) U/L Alkaline Phosphatase (38-126) U/L Troponin I <0.012 (0.000-0.034) ng/mL Total Protein (6.3-8.2) g/dL Albumin (3.5-5.0) g/dL Urine Color Urine Appearance (Clear) Urine pH (5.0-8.0) Ur Specific [place] (1.001-1.035) Urine Protein (Negative) Urine Glucose (UA) (Negative) Urine Ketones (Negative) Urine Blood (Negative) Urine Nitrite (Negative) Urine Bilirubin (Negative) Urine Urobilinogen (<2.0) mg/dL Ur Leukocyte Esterase (Negative) Urine WBC (0-5) /hpf - Radiology Data Radiology results: report reviewed (Computed tomography scan of the brain shows chronic and recent CVA with some improvement.), image reviewed (Two-view chest x-ray shows postoperative changes.) Disposition Clinical Impression: Acute renal failure, Syncope Disposition: ADMITTED IP TO THIS HOSP Is patient prescribed a controlled substance at d/c from ED?: No Referrals: Miguelito Russo MD [Primary Care Provider] - 1-2 days Decision Time: 16:01
[2020-09-28 14:09] LABS: Glucose,Whole Blood 135 mg/dL (75-99)
[2020-09-28 14:32] LABS: Basophils # (A) 0.1 k/uL (0-0.2); Basophils % (A) 1 %; Eosinophils # (A) 0.2 k/uL (0-0.7); Eosinophils % (A) 2 %; HCT 29.7 % (34.0-46.0); HGB 9.7 gm/dL (11.4-16.0); Lymphocytes # (A) 1.6 k/uL (1.0-4.8); Lymphocytes % (A) 13 %; MCHC 32.7 g/dL (31.0-37.0); MCV 88.8 fL (80.0-100.0); Mean Platelet Volume 8.6; Monocytes # (A) 0.5 k/uL (0-1.0); Monocytes % (A) 4 %; Neutrophils # (A) 9.5 k/uL (1.3-7.7); Neutrophils % (A) 80 %; Platelet Count 347 k/uL (150-450); RBC 3.35 m/uL (3.80-5.40); RDW 14.4 % (11.5-15.5); WBC 11.9 k/uL (3.8-10.6)
[2020-09-28 14:41] LABS: Albumin 4.3 g/dL (3.5-5.0); Calcium 9.5 mg/dL (8.4-10.2); Magnesium 2.1 mg/dL (1.6-2.3); Potassium 4.7 mmol/L (3.5-5.1); Total Bilirubin 0.4 mg/dL (0.2-1.3)
--- NOTE | 2020-09-28 15:02 | XR ---
EXAMINATION TYPE: XR chest 2V DATE OF EXAM: 09/28/2020 COMPARISON: Chest x-ray 03/30/2020 HISTORY: Syncope TECHNIQUE: Frontal and lateral views of the chest are obtained on 4 images. FINDINGS: Patient is post median sternotomy. Heart appears enlarged although patient is rotated. Aor ta is dense. There overlying artifacts. No evident pneumothorax or pleural effusion. Postop changes a gain noted to the cervical spine. No evident airspace disease. IMPRESSION: Technique may accentuate the appearance of the heart size. Postop changes.
--- NOTE | 2020-09-28 15:15 | CT ---
EXAMINATION TYPE: CT brain wo con DATE OF EXAM: 09/28/2020 COMPARISON: CT brain 09/14/2020 HISTORY: Brief episode of unresponsiveness, syncope CT DLP: 1157.4 mGycm Automated exposure control for dose reduction was used. Helical imaging through the brain. FINDINGS: There is no significant interval change. There are cerebral vascular calcifications. Cortical atrophy is present. Encephalomalacia is again noted along the right frontotemporal region, there is some imp rovement in the low attenuation, loss of vasquez-white differentiation, effacement of the sulci seen on prior exam consistent with improvement in subacute infarct. Periventricular white matter shows patchy low attenuation. Metallic densities along the scalp are again seen. There is inflammatory change nadia ng the middle ear bilaterally, cerumen present within the external auditory canals. IMPRESSION: EVIDENCE OF CHRONIC AND MORE RECENT CEREBRAL VASCULAR ACCIDENTS WITH SOME IMPROVEMENT DESCRIBED AR E MOST RECENT INSULT. DIFFICULT TO EXCLUDE CHOLESTEATOMA, POSSIBLY OTITIS MEDIA, DEDICATED IMAGING MA Y BE OF BENEFIT.
[2020-09-28 15:33] LABS: Prothrombin Time 10.4 sec (9.0-12.0)
[2020-09-28 15:47] LABS: Appearance,Urine Clear (Clear); Bilirubin,Urine Negative (Negative); Blood,Urine Negative (Negative); Color,Urine Yellow; Glucose,Urine (UA) Negative (Negative); Ketones,Urine Negative (Negative); Leukocyte Esterase,Urine Negative (Negative); Nitrite,Urine Negative (Negative); Protein,Urine 1+ (Negative); Specific Gravity,Urine 1.014 (1.001-1.035); Urobilinogen,Urine <2.0 mg/dL (<2.0); WBC,Urine <1 /hpf (0-5)
[2020-09-28 15:48] LABS: Partial Thromboplastin Time 19.6 sec (22.0-30.0)
[2020-09-28] MEDS ORDERED: NALOXONE 0.4 MG/ML 1 ML VIAL IV PRN (16:01)
[2020-09-28] MEDS ORDERED: SODIUM CHLORIDE 0.9% 500 ML 500 ML IV STA (16:03)
[2020-09-28] MEDS: SODIUM CHLORIDE 0.9% 1,000 ML IV SCH (16:18)
[2020-09-28] MEDS ORDERED: NITROGLYCERIN SL TABS 0.4 MG TAB SUBLINGUAL PRN (20:51)
[2020-09-28 21:39] LABS: Glucose,Whole Blood 105 mg/dL (75-99)
[2020-09-28] MEDS: traMADol 50 MG TAB PO PRN (21:55)
[2020-09-28] MEDS: INSULIN DETEMIR (LEVEMIR) 100 UNIT/ML SYR SQ SCH (21:58)
[2020-09-28] MEDS: MONTELUKAST 10 MG TAB PO SCH (22:02)
[2020-09-29] MEDS: SODIUM CHLORIDE 0.9% 1,000 ML IV SCH ×2 (03:23→15:23)
[2020-09-29] MEDS: ALPRAZolam 0.25 MG TAB PO PRN ×2 (03:34→19:10)
[2020-09-29 07:20] LABS: Glucose,Whole Blood 71 mg/dL (75-99)
[2020-09-29] MEDS: ISOSORBIDE MONONITRATE ER 60 MG TAB.ER.24H PO SCH (08:20)
[2020-09-29] MEDS: ASPIRIN 81 MG PO SCH (08:20)
[2020-09-29] MEDS: hydrALAZINE HCL 50 MG TAB PO SCH (08:20)
[2020-09-29] MEDS: amLODIPine 10 MG TAB PO SCH (08:20)
[2020-09-29] MEDS: PANTOPRAZOLE 40 MG TABLET PO SCH ×2 (08:20→17:21)
[2020-09-29] MEDS: carvediloL 12.5 MG TAB PO SCH ×2 (08:20→17:22)
[2020-09-29] MEDS: LACOSAMIDE 150 MG TABLET PO SCH ×2 (08:20→17:21)
[2020-09-29] MEDS: lisinopriL 20 MG TAB PO SCH (08:20)
[2020-09-29] MEDS: levETIRAcetam 500 MG TAB PO SCH ×2 (08:20→17:21)
[2020-09-29] MEDS: TICAGRELOR 90 MG TAB PO SCH ×2 (08:20→17:22)
[2020-09-29] MEDS: CHLORTHALIDONE 25 MG TAB PO SCH (08:20)
[2020-09-29 08:58] LABS: Glucose,Whole Blood 95 mg/dL (75-99)
[2020-09-29 09:27] LABS: African American GFR (CKD) 42 (>60 ml/min/1.73 sqM); Anion Gap 9 mmol/L; Blood Urea Nitrogen 37 mg/dL (7-17); Calcium 9.5 mg/dL (8.4-10.2); Carbon Dioxide 22 mmol/L (22-30); Chloride 110 mmol/L (98-107); Glucose 71 mg/dL (74-99); Non-African American GFR(CKD) 36 (>60 ml/min/1.73 sqM); Potassium 4.4 mmol/L (3.5-5.1); Sodium 141 mmol/L (137-145)
[2020-09-29 11:57] LABS: Glucose,Whole Blood 103 mg/dL (75-99)
[2020-09-29] MEDS: traMADol 50 MG TAB PO PRN ×2 (12:02→21:37)
--- NOTE | 2020-09-29 15:51 | HP ---
HISTORY AND PHYSICAL CHIEF COMPLAINT: Syncopal episode. HISTORY OF PRESENT ILLNESS: This is another recent admission for this 69-year-old white female who was just discharged last week to [facility] in [place]. When she was in the hospital it was for an acute right-sided CVA with left hemiparesis. Apparently she had a syncopal episode at the [facility] and was brought to the emergency room. By the time she got here, she is awake and alert and was neurologically unchanged from her status before the event. She had no headache, chest pain, further loss of neurologic function, etc. REVIEW OF SYSTEMS: She has had no chest pain, diaphoresis, confusion, nausea, vomiting, abdominal pain, etc. Past medical history, family history personal and social histories are all otherwise unremarkable and unchanged from her recent admitting and discharge summaries. Medications can be found in the MAR. PHYSICAL EXAMINATION: Blood pressure is 128/75 with a pulse of 88 and regular, respirations of 30, afebrile. General she appeared to be well developed, well nourished, in no acute distress. Skin color is normal. Skin is warm, dry. Lymph nodes are not enlarged. Head, ears, eyes, nose, mouth and throat were normal. Neck veins not distended. Thyroid not enlarged. Chest is clear. Cardiac exam is normal. Abdomen is soft, nontender. Extremities: Normal. Neurologically she was unchanged from her discharge with her left hemiparesis. IMPRESSION: 1. Syncopal episode, etiology unknown. 2. Recent right-sided CVA with left hemiparesis. 3. Hypertension. 4. Chronic obstructive pulmonary disease. PLAN: 1. Bedrest. 2. IV fluids. 3. Monitor her neurologic status, and cardiac rhythm and probably return to the [facility] soon. MMODL / IJN: [id number] /
--- NOTE | 2020-09-29 16:10 | PN ---
PROGRESS NOTE DATE OF SERVICE: 09/29/2020 CHIEF COMPLAINT: Syncopal episode with recent right-sided CVA. HISTORY OF PRESENT ILLNESS: This lady is awake and alert and seems to be back to her pre-hospital neurologic status. She denies any shortness of breath or chest pain. PHYSICAL EXAMINATION: Chest is clear. Cardiac exam is unremarkable. The abdomen is soft and nontender. Extremities: Normal. Neurologically she has a persistent left hemiparesis, but it has not changed. IMPRESSION: 1. Syncope, etiology unknown. 2. Recent right-sided CVA. 3. Hypertension. 4. Chronic obstructive pulmonary disease. PLAN: Increase activity and monitor her neurologic status. If she has no further difficulty, she can probably go back to the senior living tomorrow. MMODL / IJN: [id number] /
[2020-09-29 17:48] LABS: Glucose,Whole Blood 97 mg/dL (75-99)
[2020-09-29] MEDS: ACETAMINOPHEN TAB 325 MG TAB PO PRN (19:09)
[2020-09-29 19:59] LABS: Glucose,Whole Blood 105 mg/dL (75-99)
[2020-09-29 20:11] VITALS: RESP 16
[2020-09-29] MEDS: MONTELUKAST 10 MG TAB PO SCH (21:39)
[2020-09-29 21:47] LABS: Glucose,Whole Blood 114 mg/dL (75-99)
[2020-09-29] MEDS: INSULIN DETEMIR (LEVEMIR) 100 UNIT/ML SYR SQ SCH (22:30)
[2020-09-30 02:20] LABS: Glucose,Whole Blood 94 mg/dL (75-99)
[2020-09-30] MEDS: ACETAMINOPHEN TAB 325 MG TAB PO PRN (03:16)
[2020-09-30] MEDS: ALPRAZolam 0.25 MG TAB PO PRN (03:16)
[2020-09-30] MEDS: SODIUM CHLORIDE 0.9% 1,000 ML IV SCH (03:23)
[2020-09-30 07:23] LABS: Glucose,Whole Blood 131 mg/dL (75-99)
[2020-09-30] MEDS: carvediloL 12.5 MG TAB PO SCH ×2 (09:19→16:33)
[2020-09-30] MEDS: hydrALAZINE HCL 50 MG TAB PO SCH (09:19)
[2020-09-30] MEDS: ISOSORBIDE MONONITRATE ER 60 MG TAB.ER.24H PO SCH (09:20)
[2020-09-30] MEDS: CHLORTHALIDONE 25 MG TAB PO SCH (09:20)
[2020-09-30] MEDS: levETIRAcetam 500 MG TAB PO SCH ×2 (09:20→16:32)
[2020-09-30] MEDS: TICAGRELOR 90 MG TAB PO SCH ×2 (09:20→16:33)
[2020-09-30] MEDS: PANTOPRAZOLE 40 MG TABLET PO SCH ×2 (09:20→16:40)
[2020-09-30] MEDS: ASPIRIN 81 MG PO SCH (09:20)
[2020-09-30] MEDS: amLODIPine 10 MG TAB PO SCH (09:20)
[2020-09-30] MEDS: lisinopriL 20 MG TAB PO SCH (09:21)
[2020-09-30] MEDS: LACOSAMIDE 150 MG TABLET PO SCH ×2 (09:21→16:33)
[2020-09-30] MEDS: traMADol 50 MG TAB PO PRN ×2 (09:30→17:40)
--- NOTE | 2020-09-30 11:21 | DS ---
DISCHARGE SUMMARY CHIEF COMPLAINT: Syncope. HISTORY OF PRESENT ILLNESS AND PHYSICAL EXAMINATION: Details of this lady's history and physical can be found in the initial workup. LABORATORY STUDIES: While she was in the hospital, she had laboratory studies, details of which can be found in the laboratory section of her chart. COURSE IN THE HOSPITAL: After admission, she was placed on bedrest and started on intravenous fluids and had monitoring of her vital signs and neurologic status and she had no further problems with syncope, chest pain, neurologic changes, etc. It is felt that she could go back to [facility] on the . She will go back on her usual activity, diet and medication. FINAL DIAGNOSES: 1. Syncopal episode. 2. Recent right-sided cerebrovascular accident with left hemiparesis. 3. Seizure disorder. OPERATIONS: None. CONSULTATION: None. She is improved. MERRY / AVELINO: [id number] /
[2020-09-30 11:35] LABS: Glucose,Whole Blood 140 mg/dL (75-99)
[2020-09-30 12:40] VITALS: BP 106/50; PULSE 71; TEMP 98.1
== END 2020-09-30 19:19 ==
LOC: EC 13:07 → 5NMEDONC 16:01
PROVIDERS: ADMIT Family Medicine; ATTEND Family Medicine
DX: R55 Syncope and collapse (principal); N17.9 Acute kidney failure, unspecified; I69.354 Hemiplegia and hemiparesis following cerebral infarction affecting left non-dominant side; G40.909 Epilepsy, unspecified, not intractable, without status epilepticus; I10 Essential (primary) hypertension; J44.9 Chronic obstructive pulmonary disease, unspecified; I95.9 Hypotension, unspecified; R00.1 Bradycardia, unspecified; I69.398 Other sequelae of cerebral infarction; G93.89 Other specified disorders of brain; I25.2 Old myocardial infarction; F17.200 Nicotine dependence, unspecified, uncomplicated; F41.9 Anxiety disorder, unspecified; I44.0 Atrioventricular block, first degree; Z79.82 Long term (current) use of aspirin; Z79.02 Long term (current) use of antithrombotics/antiplatelets; Z79.4 Long term (current) use of insulin; Z95.1 Presence of aortocoronary bypass graft; Z79.899 Other long term (current) drug therapy; Z95.5 Presence of coronary angioplasty implant and graft; Z98.890 Other specified postprocedural states; Z82.49 Family history of ischemic heart disease and other diseases of the circulatory system; Z82.3 Family history of stroke
CPT/HCPCS: 96361 ×2; 96360; 99285; 36415; 93005; 97162; 97535; 97166; 80053; 80048; 80177; 83735; 84484; 85025; 85610; 85730; 81001; 71046; 70450; G0378 ×3

== ENCOUNTER 2020-10-15 18:08 | Inpatient (IN) | payer MEDICARE, OTHER ==
[2020-10-15] MEDS ORDERED: NALOXONE 0.4 MG/ML 1 ML VIAL IV PRN (18:47)
--- NOTE | 2020-10-15 18:47 | ED ---
General Adult HPI - General Chief complaint: Recheck/Abnormal Lab/Rx Stated complaint: hypertension Time Seen by Provider: 10/15/20 18:08 Source: patient, EMS, RN notes reviewed, old records reviewed Mode of arrival: EMS Limitations: no limitations - History of Present Illness Initial comments: This is a 69-year-old female with a history of CVA weakness type 2 diabetes nicotine dependence as described heart disease CHF COPD who was transferred from [facility] today after she was noted to be hypotensive with evidence of acute renal failure. She was transferred from her detention with a low blood pressure in the 50s over 30s. She is noted have a BUN of 102 and a creatinine of 4.1 this is elevated from her last admission in this facility. Also noted have a hemoglobin 7.3. Patient denies any bleeding. She did respond to IV fluids with improvement in her blood pressure. Also improvement in her mentation which initially demonstrated some altered mental status likely on the basis of find depletion. She denies any fevers chills nausea vomiting sweats this time - Related Data Home Medications Medication Instructions Recorded Confirmed Carvedilol [Coreg] 25 mg PO BID@0900,17003/30/20 09/28/20 Chlorthalidone 25 mg PO DAILY@89903/30/20 09/28/20 Insulin Glargine,Hum.rec.anlog 50 unit SQ HS@209903/30/20 09/28/20 [Lantus Solostar] Isosorbide Mononitrate ER [Imdur] 60 mg PO DAILY@89903/30/20 09/28/20 Metoclopramide [Reglan] 10 mg PO TID@0700,1100,1600 03/30/20 09/28/20 Montelukast [Singulair] 10 mg PO DAILY@209903/30/20 09/28/20 Nitroglycerin Sl Tabs [Nitrostat] 0.4 mg SL Q5M PRN 03/30/20 09/28/20 Omeprazole 20 mg PO BID@0900,1700 03/30/20 09/28/20 amLODIPine [Norvasc] 10 mg PO DAILY@0903/30/20 09/28/20 hydrALAZINE HCL [Apresoline] 100 mg PO DAILY@89903/30/20 09/28/20 lisinopriL 40 mg PO DAILY@0900 03/30/20 09/28/20 Atorvastatin [Lipitor] 80 mg PO HS@2100 09/12/20 09/28/20 Ergocalciferol [Vitamin D2 (1250 1,250 mcg PO TH@0900 09/12/20 09/28/20 Mcg = 85360 Iu)] Acetaminophen Tab [Tylenol] 650 mg PO Q6H PRN 09/28/20 09/28/20 Aspirin EC [Ecotrin Low Dose] 81 mg PO DAILY@0900 09/28/20 09/28/20 Lacosamide [Vimpat] 150 mg PO BID@0900,1700 09/28/20 09/28/20 Metoclopramide HCl [Reglan] 10 mg PO HS PRN 09/28/20 09/28/20 Nicotine 21Mg/24Hr Patch [Habitrol] 1 patch TRANSDERM DAILY@1300 09/28/20 09/28/20 Ticagrelor [Brilinta] 90 mg PO BID@0900,1700 09/28/20 09/28/20 levETIRAcetam [Keppra] 1,000 mg PO BID@0900,1700 09/28/20 09/28/20 Allergies Allergy/AdvReac Type Severity Reaction Status Date / Time No Known Allergies Allergy Verified 10/15/20 18:21 Review of Systems ROS Statement: Those systems with pertinent positive or pertinent negative responses have been documented in the HPI. ROS Other: All systems not noted in ROS Statement are negative. Past Medical History Past Medical History: Coronary Artery Disease (CAD), CVA/TIA, Diabetes Mellitus, GERD/Reflux, Hyperlipidemia, Hypertension, Myocardial Infarction ([place]), Osteoarthritis (OA), Renal Disease, Seizure Disorder, Syncope Additional Past Medical History / Comment(s): CVA 2017, CVA September 11, 2020. Glaucoma, Cataracts both eyes Last Myocardial Infarction Date:: 2014 History of Any Multi-Drug Resistant Organisms: None Reported Past Surgical History: Appendectomy, Cholecystectomy, Coronary Bypass/CABG, Heart Catheterization With Stent, Tubal Ligation Additional Past Surgical History / Comment(s): back surgery, 4 vesssel bypass 2003, heart cath with no stent on 05/29 Knee replacement both knees. Past Anesthesia/Blood Transfusion Reactions: No Reported Reaction Date of Last Stent Placement:: 2014 Past Psychological History: Anxiety Smoking Status: Current some day smoker, Smoker, current status unknown Past Alcohol Use History: None Reported Past Drug Use History: None Reported - Past Family History Mother Family Medical History: Myocardial Infarction ([place]) Father Family Medical History: CVA/TIA General Exam - General Exam Comments Initial Comments: Physical well-developed asthenic appearing female who is awake alert oriented 3 Limitations: no limitations General appearance: alert, lethargic Head exam: Present: atraumatic, normocephalic, normal inspection Eye exam: Present: normal appearance, PERRL, EOMI. Absent: scleral icterus, conjunctival injection, periorbital swelling ENT exam: Present: mucous membranes dry Neck exam: Present: normal inspection. Absent: tenderness, meningismus, lymphadenopathy Respiratory exam: Present: normal lung sounds bilaterally. Absent: respiratory distress, wheezes, rales, rhonchi, stridor Cardiovascular Exam: Present: regular rate, bradycardia GI/Abdominal exam: Present: soft, normal bowel sounds. Absent: distended, tenderness, guarding, rebound, rigid Extremities exam: Present: normal inspection, full ROM, normal capillary refill. Absent: tenderness, pedal edema, joint swelling, calf tenderness Back exam: Present: normal inspection Neurological exam: Present: alert, oriented X3, CN II-XII intact Psychiatric exam: Present: normal affect, normal mood Skin exam: Present: warm, dry, intact, normal color. Absent: rash Course Vital Signs 10/15/20 18:21 Temperature 98.5 F Pulse Rate 58 L Respiratory 22 Rate Blood Pressure 111/45 O2 Sat by Pulse 100 Oximetry - Reevaluation(s) Reevaluation #1: 10/15/20 18:45 I did review the materials presented from the other facility x-ray showed evidence of vascular prominence lab work as noted above please see complete report Medical Decision Making - Medical Decision Making I did discuss [employer] the patient as well as Dr. Russo the patient be admitted with nephrology consultation. Disposition Clinical Impression: Acute kidney injury, Hypotensive episode, Anemia, Failure to thrive Disposition: ADMITTED IP TO THIS [facility] Condition: Fair Referrals: Miguelito Russo MD [Primary Care Provider] - 1-2 days
[2020-10-15] MEDS ORDERED: METOCLOPRAMIDE 10 MG TAB PO PRN (18:49)
[2020-10-15] MEDS ORDERED: ACETAMINOPHEN TAB 325 MG TAB PO PRN (18:49)
[2020-10-15] MEDS ORDERED: NITROGLYCERIN SL TABS 0.4 MG TAB SUBLINGUAL PRN (18:49)
[2020-10-15] MEDS: SODIUM CHLORIDE 0.9% 1,000 ML IV SCH (19:00)
[2020-10-15] MEDS: MONTELUKAST 10 MG TAB PO SCH (21:12)
[2020-10-15] MEDS: ATORVASTATIN 80 MG TAB PO SCH (21:12)
[2020-10-15 21:43] LABS: Glucose,Whole Blood 74 mg/dL (75-99)
[2020-10-15] MEDS: INSULIN DETEMIR (LEVEMIR) 100 UNIT/ML SYR SQ SCH (22:05)
[2020-10-16] MEDS ORDERED: DEXTROSE 50% SYRINGE 50 ML IVP ONE (06:04)
[2020-10-16] MEDS: METOCLOPRAMIDE 10 MG TAB PO SCH ×3 (06:05→16:51)
[2020-10-16] MEDS: PANTOPRAZOLE 40 MG TABLET PO SCH (06:05)
[2020-10-16] MEDS: SODIUM CHLORIDE 0.9% 1,000 ML IV SCH ×2 (06:06→18:15)
[2020-10-16] MEDS: ISOSORBIDE MONONITRATE ER 60 MG TAB.ER.24H PO SCH (08:45)
[2020-10-16] MEDS: carvediloL 12.5 MG TAB PO SCH ×2 (08:45→16:52)
[2020-10-16] MEDS: ASPIRIN 81 MG PO SCH (08:45)
[2020-10-16] MEDS: LACOSAMIDE 150 MG TABLET PO SCH ×2 (08:46→16:51)
[2020-10-16] MEDS: TICAGRELOR 90 MG TAB PO SCH ×2 (08:46→16:51)
[2020-10-16] MEDS: amLODIPine 10 MG TAB PO SCH (08:46)
[2020-10-16] MEDS ORDERED: NON FORMULARY DRUG (Levetiracetam [Keppra] 1,000 MG Tablet) PO SCH (09:00)
[2020-10-16] MEDS ORDERED: CHLORTHALIDONE 25 MG TAB PO SCH (09:00)
[2020-10-16 11:32] LABS: Calcium 9.5 mg/dL (8.4-10.2); Potassium 4.8 mmol/L (3.5-5.1)
--- NOTE | 2020-10-16 11:41 | HP ---
HISTORY AND PHYSICAL CHIEF COMPLAINT: Mental status changes, hypotension, and acute renal failure. HISTORY OF PRESENT ILLNESS: This is another recent admission for this 69-year-old white female. She recently was in the hospital with a right-sided CVA. She was transferred to [facility]. She apparently became lethargic and experienced mental status changes and was sent to [facility] where she was found to be dehydrated with an elevated BUN and creatinine and she was also hypotensive. The records that came with her indicated her BUN was 102 and creatinine were 4.1. Hemoglobin is 7.3, and her systolic pressure was in the 70s. She was given a fluid resuscitation in the emergency room and improved. She is currently confused. REVIEW OF SYSTEMS: Review of systems cannot be obtained. She denies headaches, chest pain, abdominal pain, etc. She does not know why or where she is or how she got here. Past medical history, family history and personal and social histories are all unchanged from her recent admitting discharge summaries. Medications can be found on her med rec. PHYSICAL EXAMINATION: Blood pressure is 105/37, pulse 59, respirations 16. She is afebrile. In GENERAL she appeared to be slightly dehydrated. She is awake, but confused. Confused. HEAD, ears, eyes, nose, mouth were normal. NECK veins are not distended. CHEST is clear. There are only occasional rales or rhonchi. CARDIAC exam demonstrated what sounded like sinus rhythm. ABDOMEN is soft, nontender without any visceromegaly or masses. Bowel sounds are present. EXTREMITIES: She exhibited the left hemiparesis. IMPRESSION: She is admitted to the hospital with diagnoses. 1. Hypotension. 2. Dehydration. 3. Prerenal azotemia. 4. Chronic kidney disease. 5. Previous right-sided cerebrovascular accidents. 6. History of coronary artery disease. PLAN: 1. Bedrest. 2. IV fluids. 3. Rehydrate. 4. Consult with Med Renal. MMODL / IJN: [id number] /
--- NOTE | 2020-10-16 11:45 | PN ---
PROGRESS NOTE DATE OF SERVICE: 10/16/2020. CHIEF COMPLAINT: Dehydration, hypotension, and renal failure. HISTORY OF PRESENT ILLNESS: This lady's hydration is improved. IV fluids continue. She is much more awake and alert but she is still confused. PHYSICAL EXAM: Left hemiparesis is same. Chest: Clear. The cardiac exam is normal. Abdomen is soft and nontender. Extremities are normal. IMPRESSION: 1. Hypotension. 2. Dehydration. 3. Delirium. 4. Renal failure. PLAN: Continue with IV fluids and continue to monitor renal function. MMODL / IJN: [id number] /
[2020-10-16 11:53] LABS: Glucose,Whole Blood 225 mg/dL (75-99)
[2020-10-16 11:53] LABS: Glucose,Whole Blood 69 mg/dL (75-99)
[2020-10-16 11:53] LABS: Glucose,Whole Blood 98 mg/dL (75-99)
[2020-10-16 11:53] LABS: Glucose,Whole Blood 66 mg/dL (75-99)
--- NOTE | 2020-10-16 12:01 | CONS ---
CONSULTATION REASON FOR CONSULT: Renal failure. HISTORY OF PRESENT ILLNESS: Patient is a 69-year-old female who has a history of hypertension and she presented to [facility] with complaints of weakness[facility] She was transferred there because blood pressure was low and patient was increasingly weak. She was found to be anemic with hemoglobin of 7.3 and creatinine of 4.1 at that time. The patient was given IV fluids and transferred here to [facility]. Apparently, her blood pressure had been in the 50s systolic. Patient denies any previous history of kidney diseases. Patient denies any history of nausea, vomiting, abdominal pain or diarrhea. No fever or chills. She denies use of any nonsteroidal anti-inflammatory agents. She had been maintained on diuretics chlorthalidone at home prior to admission along with KEVIN inhibitors. Labs are currently pending from today, but prior creatinine noted to be 1.46 on 09/29/2020. PAST MEDICAL HISTORY: Diabetes, coronary artery disease, CVA/TIA, gastroesophageal reflux disease, hypertension, hyperlipidemia, MO, osteoarthritis, seizure disorder, syncope, history of CVA, glaucoma. PAST SURGICAL HISTORY: Cataract surgery, coronary artery bypass surgery, cholecystectomy, appendectomy, cardiac catheterization, coronary stent placement, tubal ligation, back surgeries, knee arthroplasty bilaterally. SOCIAL HISTORY: Patient is a current daily smoker. No history of drug abuse or alcohol abuse. MEDICATIONS: Prior to admission included Keppra, Brilinta, Reglan, Tylenol, aspirin, lisinopril, hydralazine, Norvasc, omeprazole, Reglan, Singulair, Nitrostat, Coreg, chlorthalidone, insulin, isosorbide dinitrate. ASSESSMENT: 1. Acute kidney injury secondary to hypotension, use of KEVIN inhibitors and hypovolemia. Creatinine was 4.1 at an outside hospital in [place]. Repeat labs ordered for today. Previous creatinine 1.5 on 09/29/2020. 2. Chronic kidney disease stage 3. Previous creatinine 1.5 in September, most likely diabetic kidney disease. UA at that time showed 1+ protein. GFR about 36 mL/minute, maintained on KEVIN inhibitors. Check ultrasound of the kidneys if not done recently. 3. Hypotension, rule out underlying infection. Consideration for possible urinary tract infection. Repeat labs pending. Will follow up on cultures from an outside facility at [place]. 4. Type 2 diabetes. 5. Coronary artery disease status post coronary stents and coronary artery bypass surgery, ejection fraction 55-60% on echocardiogram done on 09/12/2020. 6. Anemia, rule out underlying gastrointestinal bleed. 7. History of recent cerebrovascular accident. 8. Seizure disorder. PLAN: Check labs today. Continue with IV fluids. Check ultrasound of the kidneys. Follow up on urine cultures and repeat labs in a.m. Thank you for this consultation. Will continue to follow the patient with you during her hospitalization. MMODL / IJN: [id number] /
[2020-10-16] MEDS: NICOTINE 21MG/24HR PATCH TRANSDERM SCH (12:30)
[2020-10-16 16:50] LABS: Glucose,Whole Blood 83 mg/dL (75-99)
[2020-10-16 19:35] LABS: Glucose,Whole Blood 106 mg/dL (75-99)
[2020-10-16] MEDS: ATORVASTATIN 80 MG TAB PO SCH (21:48)
[2020-10-16] MEDS: MONTELUKAST 10 MG TAB PO SCH (21:48)
[2020-10-16] MEDS: INSULIN DETEMIR (LEVEMIR) 100 UNIT/ML SYR SQ SCH (21:48)
[2020-10-16] MEDS: ACETAMINOPHEN TAB 325 MG TAB PO PRN (22:08)
[2020-10-17 05:43] LABS: Glucose,Whole Blood 39 mg/dL (75-99)
[2020-10-17 05:58] LABS: Glucose,Whole Blood 41 mg/dL (75-99)
[2020-10-17 06:13] LABS: Glucose,Whole Blood 41 mg/dL (75-99)
[2020-10-17] MEDS ORDERED: DEXTROSE 50% SYRINGE 50 ML IVP ONE (06:14)
[2020-10-17 06:28] LABS: Glucose,Whole Blood 145 mg/dL (75-99)
[2020-10-17] MEDS: METOCLOPRAMIDE 10 MG TAB PO SCH ×3 (06:52→16:19)
[2020-10-17] MEDS: PANTOPRAZOLE 40 MG TABLET PO SCH (06:52)
[2020-10-17] MEDS: SODIUM CHLORIDE 0.9% 1,000 ML IV SCH ×2 (06:52→11:53)
[2020-10-17] MEDS: TICAGRELOR 90 MG TAB PO SCH ×2 (08:26→16:19)
[2020-10-17] MEDS: ASPIRIN 81 MG PO SCH (08:26)
[2020-10-17] MEDS: ISOSORBIDE MONONITRATE ER 60 MG TAB.ER.24H PO SCH (08:26)
[2020-10-17] MEDS: amLODIPine 10 MG TAB PO SCH (08:29)
[2020-10-17] MEDS: carvediloL 12.5 MG TAB PO SCH ×2 (08:29→16:19)
[2020-10-17] MEDS: LACOSAMIDE 150 MG TABLET PO SCH ×2 (08:34→16:19)
--- NOTE | 2020-10-17 09:24 | US ---
EXAMINATION TYPE: US kidneys/renal and bladder DATE OF EXAM: 10/17/2020 COMPARISON: US CLINICAL HISTORY: RF. diabetic EXAM MEASUREMENTS:US exam is technically limited by patient's decreased range of motion Right Kidney: 9.3 x 5.0 x 4.5 cm Left Kidney: 10.0 x 6.1 x 6.1 cm Post Void Residual Volume: not assessed on inpatient Right Kidney: No hydronephrosis, nephrolithiasis or masses seen Left Kidney: No hydronephrosis, nephrolithiasis or masses seen Bladder: wnl Bilateral Jets seen: very small jets seen IMPRESSION: No acute process.
--- NOTE | 2020-10-17 10:51 | CDI ---
Documentation Clarification Form Date: 10/17/2020 10:21:46 AM From: Edith Sandoval RN CCDS Admit Date: 10/15/2020 06:47:00 PM Patient Name: Lupe Oh Visit Number: [id number] Discharge Date: ATTENTION: The Clinical Documentation Specialists (CDI) and [facility] Coding Staff appreciate your assistance in clarifying documentation. Please respond to the clarification below the line at the bottom and electronically sign. The CDI & [facility] Coding staff will review the response and follow-up if needed. Please note: Queries are made part of the Legal Health Record. If you have any questions, please contact the author of this message via ITS. Dr. Miguelito Russo Your patient has the documented symptom of Altered Mental Status ED Note 10/15. Additional clarification regarding the etiology/cause of this symptom is requested. History/Risk Factors: 69-year-old male presents to [facility] ED from [facility] for hypotension with evidence of acute renal failure. Medical History: DM, CVA, HTN and Renal disease. ED note 10/15. Clinical Indicators: VSS: 10/15 B/P 111/45, HR 58, Temp 98.5, RR 22, SpO2 100% 2L nasal cannula Labs: 10/16 Cr 2.65, Bun 84 Nephrology consult: 10/16 Acute Kidney Injury secondary to hypotension, use of KEVIN inhibitors and hypovolemia. Creatinine was 4.1 at an outside hospital in [place]. Medicine progress note: 10/16 She is much more awake and alert, but she is still confused. Treatment: 10/15 0.9NS 70cc/hr to current, 10/16 d/cd Chlorthalidone. Please clarify the etiology of the symptom of Altered Mental Status: [ ] Metabolic Encephalopathy due to LINDA. [ ] Other condition (please specify) [ ] Unable to determine (Template Last Revised: April 2020) MTDD
[2020-10-17 10:52] LABS: Calcium 9.4 mg/dL (8.4-10.2); Potassium 4.8 mmol/L (3.5-5.1)
[2020-10-17] MEDS: NICOTINE 21MG/24HR PATCH TRANSDERM SCH (11:53)
[2020-10-17 12:30] LABS: Glucose,Whole Blood 124 mg/dL (75-99)
--- NOTE | 2020-10-17 13:50 | MISC ---
MISCELLANOUS REPORT Other condition: Post stroke, dementia. MMODL / IJN: [id number] /
[2020-10-17] MEDS: DEXTROSE 5% IN WATER 1,000 ML with SODIUM BICARB (1 MEQ/ML) 150 ML IV SCH (14:02)
--- NOTE | 2020-10-17 14:17 | PN ---
PROGRESS NOTE Patient is seen for followup for acute kidney injury and hypotension. Patient's renal function has improved post IV fluid administration. Creatinine has come down from about 4 at [facility] to 1.57 now. The patient is maintained on IV fluids. No ongoing nausea, vomiting, abdominal pain or fever. Patient is currently resting. She is arousable. PHYSICAL EXAMINATION: On examination today, blood pressure 132/54, heart rate 60 per minute. She is afebrile. Examination of the heart S1, S2. Examination of the lungs, bilateral breath sounds are heard. Abdomen is soft, nontender. Examination of lower extremities shows no significant edema. TIRE RETREADER exam grossly intact. LAB: Show sodium 140, potassium 4.8, chloride 114, CO2 is 15, BUN 58, creatinine 1.57. ASSESSMENT: 1. Acute kidney injury prerenal currently improved. 2. Metabolic acidosis associated with renal failure and IV fluids. This is stable. I will change the IV fluids to IV bicarb for about 24 hours. 3. Hypotension, currently improved. 4. Rule out chronic kidney disease. Previous labs not available. Ultrasound is unremarkable. Check urinalysis. PLAN: Change IV fluids to IV bicarb. Check urinalysis and repeat labs. Encourage increased oral intake. MMODL / IJN: [id number] /
[2020-10-17 14:56] VITALS: BMI 27.8
[2020-10-17 16:38] LABS: Glucose,Whole Blood 130 mg/dL (75-99)
[2020-10-17] MEDS: MONTELUKAST 10 MG TAB PO SCH (20:12)
[2020-10-17] MEDS: ATORVASTATIN 80 MG TAB PO SCH (20:12)
[2020-10-17 20:22] LABS: Glucose,Whole Blood 212 mg/dL (75-99)
[2020-10-17] MEDS: INSULIN DETEMIR (LEVEMIR) 100 UNIT/ML SYR SQ SCH (20:30)
[2020-10-18] MEDS: DEXTROSE 5% IN WATER 1,000 ML with SODIUM BICARB (1 MEQ/ML) 150 ML IV SCH ×2 (04:22→20:49)
[2020-10-18 05:27] LABS: Appearance,Urine Turbid (Clear); Bacteria,Urine Many /hpf; Bilirubin,Urine Negative (Negative); Blood,Urine Large (Negative); Color,Urine Yellow; Glucose,Urine (UA) Negative (Negative); Ketones,Urine Negative (Negative); Leukocyte Esterase,Urine Large (Negative); Mucus,Urine Rare /hpf; Nitrite,Urine Negative (Negative); PH, Urine 5.5 (5.0-8.0); Protein,Urine Trace (Negative); RBC,Urine 41 /hpf (0-5); Squamous Epithelial Cell,Urine 19 /hpf (0-4); Urobilinogen,Urine <2.0 mg/dL (<2.0); WBC,Urine 76 /hpf (0-5)
[2020-10-18] MEDS: METOCLOPRAMIDE 10 MG TAB PO SCH ×3 (06:15→16:03)
[2020-10-18] MEDS: PANTOPRAZOLE 40 MG TABLET PO SCH (06:16)
[2020-10-18 06:22] LABS: Glucose,Whole Blood 99 mg/dL (75-99)
[2020-10-18] MEDS: ISOSORBIDE MONONITRATE ER 60 MG TAB.ER.24H PO SCH (08:18)
[2020-10-18] MEDS: LACOSAMIDE 150 MG TABLET PO SCH ×2 (08:18→16:03)
[2020-10-18] MEDS: carvediloL 12.5 MG TAB PO SCH ×2 (08:18→16:03)
[2020-10-18] MEDS: ASPIRIN 81 MG PO SCH (08:18)
[2020-10-18] MEDS: TICAGRELOR 90 MG TAB PO SCH ×2 (08:18→16:03)
[2020-10-18] MEDS: amLODIPine 10 MG TAB PO SCH (08:18)
[2020-10-18] MEDS: NICOTINE 21MG/24HR PATCH TRANSDERM SCH (11:44)
[2020-10-18 12:03] LABS: Glucose,Whole Blood 100 mg/dL (75-99)
--- NOTE | 2020-10-18 14:46 | CDI ---
Documentation Clarification Form Date: 10/18/2020 02:35:43 PM From: Edith Sandoval RN CCDS Admit Date: 10/15/2020 06:47:00 PM Patient Name: Lupe Oh Visit Number: [id number] Discharge Date: ATTENTION: The Clinical Documentation Specialists (CDI) and [facility] Coding Staff appreciate your assistance in clarifying documentation. Please respond to the clarification below the line at the bottom and electronically sign. The CDI & [facility] Coding staff will review the response and follow-up if needed. Please note: Queries are made part of the Legal Health Record. If you have any questions, please contact the author of this message via ITS. Dr. Miguelito Farah Buttock, stage II pressure ulcer is documented by Nursing 10/16 in Pressure assessment. Based on this information and the findings below, is there an additional diagnosis that is clinically appropriate for this patient? History/Risk Factors: 69-year-old male presents to [facility] from [facility] for hypotension with evidence of acute renal failure. Medical History: DM, CVA, HTN and Renal disease. ED note 10/15. Clinical Indicators: Location: Buttock Wound description: Stage II POA, photo taken. Treatment: 10/16 Turn 2QHR; 10/17 Glucerna PO TID; 10/15 Absorbent underpad and Zinc paste. Consults: Dietary, Increased metabolic demand for wound healing pressure injury. Is there an additional diagnosis that is clinically appropriate for this patient? [ ] Buttock Pressure Ulcer Stage 2 [ ] Other condition, please specify [ ] Unable to determine Clinical Definitions: Stage 1 Pressure Ulcer: intact skin, non-blanching redness of local area Stage 2 Pressure Ulcer: Partial thickness, loss of dermis, pink wound bed Stage 3 Pressure Ulcer: Full thickness tissue loss Stage 4 Pressure Ulcer: Full thickness tissue loss with exposed bone, tendon, or muscle. Unstageable pressure ulcer: Full thickness tissue loss in which the base of the ulcer is covered by slough (yellow, cotto, vasquez, green or brown) and/or eschar (cotto, brown or black) in the wound bed. (Template Last Revised: May 2020) JEREMIAH
[2020-10-18 17:05] LABS: Glucose,Whole Blood 84 mg/dL (75-99)
[2020-10-18 17:21] LABS: Calcium 8.7 mg/dL (8.4-10.2); Potassium 4.1 mmol/L (3.5-5.1)
--- NOTE | 2020-10-18 18:48 | PN ---
PROGRESS NOTE Patient is seen for followup for acute kidney injury and hypotension. The patient has been maintained on IV fluids. Her renal function continues to improve. She was also acidotic for which she is maintained on a bicarb drip. The serum creatinine was down to 1.57 yesterday. No labs available today. UA showed evidence of pyuria. Urine culture has been ordered. PHYSICAL EXAMINATION: On examination today, blood pressure 136/55, heart rate 62 per minute, she is afebrile. Examination of the heart S1, S2. Examination of lungs, bilateral breath sounds are heard. Abdomen is soft, nontender. Examination of lower extremities shows no evidence of edema. 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 LAB: Labs are not available from today. ASSESSMENT: 1. Acute kidney injury, prerenal, associated with hypotension and hypovolemia, currently improving. Ultrasound of the kidneys was unremarkable. UA shows evidence of pyuria and possible underlying urinary tract infection. 2. Pyuria, rule out urinary tract infection. I will give a dose of Rocephin x1 now and we will follow up on a urine culture. 3. Metabolic acidosis, currently maintained on IV bicarb. 4. Rule out chronic kidney disease. 5. Hypertension, currently controlled. PLAN: Check labs today and then again in a.m. Will likely discontinue the bicarb drip if acidosis has improved and follow up on the urine cultures. Patient may need oral antibiotics at the time of discharge. MMODL / IJN: [id number] /
[2020-10-18] MEDS: MONTELUKAST 10 MG TAB PO SCH (19:50)
[2020-10-18] MEDS: ATORVASTATIN 80 MG TAB PO SCH (19:50)
[2020-10-18 20:05] LABS: Glucose,Whole Blood 154 mg/dL (75-99)
[2020-10-18] MEDS: INSULIN DETEMIR (LEVEMIR) 100 UNIT/ML SYR SQ SCH ×2 (20:35→20:36)
--- NOTE | 2020-10-18 22:46 | PN ---
PROGRESS NOTE DATE OF SERVICE: 10/17/2020. CHIEF COMPLAINT: Dehydration and acute kidney injury with hypotension. HISTORY OF PRESENT ILLNESS: This lady is more stable. She is awake and alert and less confused. Vital signs normal. Neurologically she is stable. PHYSICAL EXAMINATION: She is awake and communicative. Cranial nerves seem to be intact. Chest is clear. Cardiac exam is normal. Abdomen soft, nontender. Hemiparesis is unchanged. IMPRESSION: 1. Dehydration. 2. Hypotension. 3. Acute renal failure. PLAN: Continue with IV fluids and attendance from nephrology. MMODL / IJN: [id number] /
--- NOTE | 2020-10-18 23:01 | PN ---
PROGRESS NOTE DATE OF SERVICE: 10/18/2020 CHIEF COMPLAINT: Acute renal failure, dehydration. HISTORY OF PRESENT ILLNESS: This lady's hydration is improving as is her renal function. She is more alert. She has no nausea. PHYSICAL EXAMINATION: Chest is clear. Cardiac exam is normal. Abdomen is soft, nontender. Extremities are normal. She is more awake and communicative today. IMPRESSION: Previous cerebrovascular accident, acute renal failure, dehydration. PLAN: Continue with IV fluids and continue to monitor her renal function. MMODL / IJN: [id number] /
[2020-10-19 06:07] LABS: Glucose,Whole Blood 58 mg/dL (75-99)
[2020-10-19] MEDS: PANTOPRAZOLE 40 MG TABLET PO SCH (06:14)
[2020-10-19] MEDS: METOCLOPRAMIDE 10 MG TAB PO SCH ×3 (06:14→15:34)
[2020-10-19 06:25] LABS: Glucose,Whole Blood 85 mg/dL (75-99)
[2020-10-19] MEDS: carvediloL 12.5 MG TAB PO SCH ×2 (09:46→15:34)
[2020-10-19] MEDS: amLODIPine 10 MG TAB PO SCH (09:46)
[2020-10-19] MEDS: ISOSORBIDE MONONITRATE ER 60 MG TAB.ER.24H PO SCH (09:46)
[2020-10-19] MEDS: ASPIRIN 81 MG PO SCH (09:46)
[2020-10-19] MEDS: NICOTINE 21MG/24HR PATCH TRANSDERM SCH (09:47)
[2020-10-19] MEDS: TICAGRELOR 90 MG TAB PO SCH ×2 (09:47→15:35)
[2020-10-19] MEDS: LACOSAMIDE 150 MG TABLET PO SCH ×2 (09:49→15:35)
[2020-10-19 11:42] LABS: Glucose,Whole Blood 73 mg/dL (75-99)
--- NOTE | 2020-10-19 11:43 | MISC ---
MISCELLANOUS REPORT QUERY RESPONSE: Unable to determine. MMODL / IJN: [id number] /
--- NOTE | 2020-10-19 13:26 | PN ---
PROGRESS NOTE Patient is seen for followup for acute kidney injury and hypotension. She was found to have significant pyuria and was started on antibiotics. Patient was also acidotic for which she was maintained on bicarb drip. Overnight patient has not had any significant complaints. She is currently being washed. Discussed with nursing staff. Patient's oral intake has been fair. She has had good urine output. Vital signs are reviewed. Blood pressure 138/65, heart rate 63 per minute. Patient appears euvolemic. LAB: From October 18 show sodium 137, potassium 4.1, BUN 33, creatinine 1.25. Urine culture is pending. ASSESSMENT: 1. Acute kidney injury secondary to hypotension, hypovolemia currently improved. 2. Pyuria, rule out urinary tract infection, maintained on Rocephin. Urine culture is pending. 3. Hypotension from hypovolemia now improved. 4. Rule out chronic kidney disease. 5. Hypertension currently controlled. PLAN: DC bicarb drip. Encourage increased oral intake. Patient is clear for discharge from nephrology standpoint. MMODL / IJN: [id number] /
--- NOTE | 2020-10-19 14:49 | MISC ---
MISCELLANOUS REPORT QUERY RESPONSE: Unable to determine. MMODL / IJN: [id number] /
[2020-10-19] MEDS: ACETAMINOPHEN TAB 325 MG TAB PO PRN ×2 (15:35→22:33)
[2020-10-19 16:57] LABS: Glucose,Whole Blood 100 mg/dL (75-99)
[2020-10-19 20:15] LABS: Glucose,Whole Blood 96 mg/dL (75-99)
[2020-10-19] MEDS: ATORVASTATIN 80 MG TAB PO SCH (21:02)
[2020-10-19] MEDS: MONTELUKAST 10 MG TAB PO SCH (21:02)
--- NOTE | 2020-10-20 01:30 | PN ---
PROGRESS NOTE DATE OF SERVICE: 10/19/2020 CHIEF COMPLAINT: Hypotension and dehydration. HISTORY OF PRESENT ILLNESS: This lady is fairly stable. Blood sugars are running slightly low. PHYSICAL EXAMINATION: She is awake, but confused. Hemiparesis is the same and not any worse. Chest is clear. Cardiac exam is normal. IMPRESSION: 1. Hypotension. 2. Dehydration. 3. Prerenal azotemia. 4. Diabetes. 5. Recent right-sided CVA. PLAN: 1. Decrease insulin. 2. She could probably go back to the [facility] in a day or 2. MMODL / LUCINAN: [id number] /
[2020-10-20] MEDS: ACETAMINOPHEN TAB 325 MG TAB PO PRN (03:48)
[2020-10-20 03:49] LABS: Glucose,Whole Blood 91 mg/dL (75-99)
[2020-10-20 06:10] LABS: Glucose,Whole Blood 96 mg/dL (75-99)
[2020-10-20] MEDS: METOCLOPRAMIDE 10 MG TAB PO SCH ×3 (06:22→16:32)
[2020-10-20] MEDS: PANTOPRAZOLE 40 MG TABLET PO SCH (06:22)
[2020-10-20] MEDS ORDERED: INSULIN DETEMIR (LEVEMIR) 100 UNIT/ML SYR SQ SCH (07:00)
[2020-10-20] MEDS ORDERED: ERGOCALCIFEROL 1,250 MCG (50,000 IU) CAPSULE PO SCH (09:00)
[2020-10-20] MEDS: carvediloL 12.5 MG TAB PO SCH ×2 (09:33→16:32)
[2020-10-20] MEDS: LACOSAMIDE 150 MG TABLET PO SCH ×2 (09:33→16:36)
[2020-10-20] MEDS: ASPIRIN 81 MG PO SCH (09:33)
[2020-10-20] MEDS: TICAGRELOR 90 MG TAB PO SCH ×2 (09:33→16:32)
[2020-10-20] MEDS: ISOSORBIDE MONONITRATE ER 60 MG TAB.ER.24H PO SCH (09:33)
[2020-10-20] MEDS: amLODIPine 10 MG TAB PO SCH (09:33)
[2020-10-20] MEDS: NICOTINE 21MG/24HR PATCH TRANSDERM SCH (09:34)
[2020-10-20 11:37] LABS: Glucose,Whole Blood 146 mg/dL (75-99)
[2020-10-20 12:13] LABS: Calcium 8.5 mg/dL (8.4-10.2); Potassium 4.1 mmol/L (3.5-5.1)
--- NOTE | 2020-10-20 15:12 | PN ---
PROGRESS NOTE Patient is seen for follow up for acute kidney injury and hypotension with underlying urinary tract infection. The patient is maintained on antibiotics. Her urine culture did grow gram negative bacilli. She is doing much better with improvement in her renal function and blood pressure. The patient was also acidotic for which she was maintained on bicarb drip which was discontinued yesterday. On examination today, blood pressure 138/66, heart rate 74 per minute, she is afebrile. Examination of the heart S1 and S2. Examination of the lungs, bilateral breath sounds are heard. Abdomen is soft, nontender. Examination of lower extremities shows no evidence of edema. 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 LABS: Not available from today. On 10/18/2020 sodium 137, potassium 4.1, chloride 102, CO2 is 26, BUN 33, creatinine 1.25. ASSESSMENT: 1. Acute kidney injury, prerenal, associated with hypotension, underlying infection, currently improved. 2. Hypotension from sepsis, now resolved. 3. Urinary tract infection with urine culture growing gram negative bacilli, maintained on Rocephin. 4. Hypertension, currently controlled. PLAN: Check labs today. The patient is stable for discharge from nephrology standpoint. Continue antibiotics as outpatient. MMODL / IJN: [id number] /
[2020-10-20 16:47] LABS: Glucose,Whole Blood 163 mg/dL (75-99)
--- NOTE | 2020-10-20 18:05 | DS ---
DISCHARGE SUMMARY ADDENDUM: CHIEF COMPLAINT: Mental status changes, hypotension, dehydration and acute renal failure. HISTORY OF PRESENT ILLNESS: Details of this lady's history and physical can be found in the initial work up. LABORATORY DATA: While she was in the hospital, she had laboratory studies, details of which can be found in the laboratory section of her chart. HOSPITAL COURSE: After admission, she was placed on bed rest and rehydrated. As a result, she became more awake and alert and BUN and creatinine dropped toward normal. Her blood pressure returned to normal. She stabilized and it was felt she could be returned to the [facility]. She will go there on October 20. She will be off diuretics. FINAL DIAGNOSES: 1. Severe dehydration. 2. Hydrostatic hypotension. 3. Prerenal and acute renal failure. 4. Chronic renal failure. 5. Atherosclerotic cardiovascular disease. 6. Chronic obstructive pulmonary disease. 7. Coronary artery disease. 8. Right sided cerebrovascular accident with left hemiparesis. OPERATIONS: None. She is improved. MMODL / IJN: [id number] /
[2020-10-20 20:19] LABS: Glucose,Whole Blood 135 mg/dL (75-99)
[2020-10-20] MEDS: ATORVASTATIN 80 MG TAB PO SCH (21:10)
[2020-10-20] MEDS: MONTELUKAST 10 MG TAB PO SCH (21:10)
--- NOTE | 2020-10-20 22:41 | DS ---
DISCHARGE SUMMARY CHIEF COMPLAINT: Hypotension, dehydration and acute renal failure. HISTORY OF PRESENT ILLNESS AND PHYSICAL EXAMINATION: Details of this lady's history and physical can be found in the initial workup. LABORATORY STUDIES: While she was in the hospital, she had laboratory studies, details of which can be found in the laboratory section of her chart. COURSE IN THE HOSPITAL: After admission, she was placed on bedrest on intravenous fluids and rehydrated. Blood pressure came up as and her renal function improved. It was felt she was stable and that she could return to the [place] [facility]. She will be going back to . FINAL DIAGNOSES: 1. Dehydration. 2. Hydrostatic hypotension. 3. Prerenal azotemia. 4. Chronic renal failure. 5. Atherosclerotic cardiovascular disease. 6. Coronary artery disease. 7. History of hypertension. 8. Right-sided cerebrovascular accident with left hemiparesis. OPERATIONS: None. CONSULTATION: Nephrology. She is improved. MMODL / IJN: [id number] /
[2020-10-21] MEDS: PANTOPRAZOLE 40 MG TABLET PO SCH (05:58)
[2020-10-21] MEDS: METOCLOPRAMIDE 10 MG TAB PO SCH ×2 (05:58→11:53)
[2020-10-21 06:02] LABS: Glucose,Whole Blood 121 mg/dL (75-99)
[2020-10-21 09:54] VITALS: TEMP 99.6
[2020-10-21] MEDS: NICOTINE 21MG/24HR PATCH TRANSDERM SCH (10:27)
[2020-10-21] MEDS: carvediloL 12.5 MG TAB PO SCH (10:28)
[2020-10-21] MEDS: amLODIPine 10 MG TAB PO SCH (10:28)
[2020-10-21] MEDS: TICAGRELOR 90 MG TAB PO SCH (10:28)
[2020-10-21] MEDS: ISOSORBIDE MONONITRATE ER 60 MG TAB.ER.24H PO SCH (10:28)
[2020-10-21] MEDS: LACOSAMIDE 150 MG TABLET PO SCH (10:28)
[2020-10-21] MEDS: ASPIRIN 81 MG PO SCH (10:28)
[2020-10-21] MEDS ORDERED: HYDROcodone/APAP 5-325MG 1 EACH TAB PO STA (10:49)
[2020-10-21 11:52] VITALS: BP 135/62; PULSE 65; RESP 16
[2020-10-21 11:58] LABS: Glucose,Whole Blood 148 mg/dL (75-99)
--- NOTE | 2020-10-21 14:06 | PN ---
PROGRESS NOTE Patient is seen for followup for acute kidney injury. Renal function has been improving. Patient is maintained on antibiotics for urinary tract infection. She was hypotensive on initial admission. Blood pressure is currently 130 mmHg systolic. Patient is status post IV fluids and IV bicarb for about 24-48 hours. PHYSICAL EXAMINATION: On examination today, blood pressure 150/68, heart rate 72 per minute. She is afebrile. EXAMINATION OF THE HEART: S1 and S2. EXAMINATION OF LUNGS: Bilateral breath sounds are heard. ABDOMEN: Soft, nontender. LOWER EXTREMITIES: Examination of lower extremities shows no evidence of edema. CLAIM AGENT EXAM: Grossly intact. LABS: Labs on 10/20/2020 show sodium 133, potassium 4.1, chloride 96, BUN 23, creatinine 1.38. ASSESSMENT: 1. Acute kidney injury secondary to hypotension, underlying urinary tract infection, currently improved. 2. Metabolic acidosis secondary to renal failure, now resolved. 3. Urinary tract infection with urine culture growing Escherichia coli, maintained on antibiotics. PLAN: Patient is stable for discharge from nephrology standpoint. Continue current antihypertensive medications. The patient is advised to avoid nonsteroidal anti- inflammatory agents post discharge. MMODL / IJN: [id number] /
--- NOTE | 2020-10-21 19:51 | PN ---
PROGRESS NOTE DATE OF SERVICE: 10/21/2020 CHIEF COMPLAINT: Hypotension, dehydration and acute renal failure. HISTORY OF PRESENT ILLNESS: This lady is stable and was to have gone to [facility] last night but did not, for some reason. She will be going today. PHYSICAL EXAMINATION: Chest is unchanged with scattered rales. The cardiac exam is normal. The abdomen is soft, nontender. IMPRESSION: 1. Dehydration with hypotension. 2. Prerenal azotemia. 3. Chronic renal failure. 4. Hypertension. 5. Coronary artery disease. 6. Chronic obstructive pulmonary disease. 7. Left-sided hemiparesis secondary to right-sided cerebrovascular accident. PLAN: Discharge to [facility] today. MMODL / IJN: [id number] /
== END 2020-10-21 14:45 | DRG 683 ==
LOC: EC 18:08 → 3SCARD 18:47
PROVIDERS: ADMIT Family Medicine; ATTEND Family Medicine
DX: N17.9 Acute kidney failure, unspecified (principal); N39.0 Urinary tract infection, site not specified; I13.0 Hypertensive heart and chronic kidney disease with heart failure and stage 1 through stage 4 chronic kidney disease, or unspecified chronic kidney disease; E87.2 Acidosis; I69.354 Hemiplegia and hemiparesis following cerebral infarction affecting left non-dominant side; N18.30 Chronic kidney disease, stage 3 unspecified; J44.9 Chronic obstructive pulmonary disease, unspecified; R62.7 Adult failure to thrive; Z79.02 Long term (current) use of antithrombotics/antiplatelets; I95.89 Other hypotension; I50.9 Heart failure, unspecified; I25.2 Old myocardial infarction; I25.10 Atherosclerotic heart disease of native coronary artery without angina pectoris; G40.909 Epilepsy, unspecified, not intractable, without status epilepticus; F17.200 Nicotine dependence, unspecified, uncomplicated; E86.1 Hypovolemia; E86.0 Dehydration; E78.5 Hyperlipidemia, unspecified; E11.22 Type 2 diabetes mellitus with diabetic chronic kidney disease; D64.9 Anemia, unspecified; B96.20 Unspecified Escherichia coli [E. coli] as the cause of diseases classified elsewhere; Z79.82 Long term (current) use of aspirin; Z82.49 Family history of ischemic heart disease and other diseases of the circulatory system; Z86.73 Personal history of transient ischemic attack (TIA), and cerebral infarction without residual deficits; Z95.1 Presence of aortocoronary bypass graft; Z95.5 Presence of coronary angioplasty implant and graft; F41.9 Anxiety disorder, unspecified; K21.9 Gastro-esophageal reflux disease without esophagitis; M19.90 Unspecified osteoarthritis, unspecified site; Z79.899 Other long term (current) drug therapy; I69.318 Other symptoms and signs involving cognitive functions following cerebral infarction
CPT/HCPCS: 76770; 80048; 81001; 87077; 87086; 87186; 99285